=== PATIENT | male | born 1980 | race Caucasian/White ===

== ENCOUNTER 2017-12-23 13:57 | Inpatient (IN) | payer BC ==
[2017-12-23] MEDS ORDERED: LORazepam 2 MG/ML INJ IV PRN (14:18)
[2017-12-23] MEDS ORDERED: THIAMINE 100 MG/ML 2 ML VIAL IM STA (14:18)
[2017-12-23] MEDS ORDERED: SODIUM CHLORIDE 0.9% 1,000 ML IV STA ×2 (14:24)
--- NOTE | 2017-12-23 14:30 | ED ---
General Adult HPI - General Chief complaint: Weakness Stated complaint: weakness, altered Time Seen by Provider: 12/23/17 14:08 Source: patient, family Mode of arrival: ambulatory Limitations: no limitations - History of Present Illness Initial comments: Patient sent to the emergency room from his primary care office for admission to the hospital for alcohol withdrawal, malnutrition. Patient is chronic alcoholic, states she drinks one fifth of whiskey per day. Mother lives in [place] drove up to see him this weekend because patient sounded very weak. Mom found patient in bed, too weak to walk or stand. Mom states patient was crawling on floor. Patient admits to not eating. Mom states 2 days ago she was able to feed him baby food, states he ate a small plate of chicken nuggets earlier today. Patient has gone through severe withdrawal before, admitted to intensive care unit [facility] in October of last year. Patient denies any withdrawal symptoms at this time. Mom notes patient does have mild intermittent confusion over the last year. Patient denies any other drug use. Last drink was whiskey earlier this morning. Patient states his primary care physician Dr. Childress told him they have a bed reserved for him in the hospital already. - Related Data Allergies Allergy/AdvReac Type Severity Reaction Status Date / Time No Known Allergies Allergy Verified 12/23/17 14:07 Review of Systems ROS Statement: Those systems with pertinent positive or pertinent negative responses have been documented in the HPI. Constitutional: Reports: weakness, weight change. Denies: fever, chills, night sweats Eyes: Denies: vision change ENT: Denies: throat pain, congestion Respiratory: Denies: dyspnea Cardiovascular: Denies: chest pain, palpitations Endocrine: Reports: fatigue Gastrointestinal: Reports: vomiting (2 days ago). Denies: abdominal pain, nausea Genitourinary: Denies: urgency, dysuria, frequency Musculoskeletal: Denies: back pain, joint swelling, arthralgia, myalgia Skin: Denies: rash Neurological: Reports: weakness (generalized). Denies: headache Psychiatric: Denies: anxiety, depression, suicidal thoughts Past Medical History Additional Past Medical History / Comment(s): Endocarditis. History of Any Multi-Drug Resistant Organisms: None Reported Past Surgical History: No Surgical Hx Reported Past Psychological History: No Psychological Hx Reported Smoking Status: Current every day smoker Past Alcohol Use History: Daily Past Drug Use History: None Reported General Exam - General Exam Comments Initial Comments: Sitting up in bed alert, in pajama pants and oriented lathe hand. No acute distress. Cachectic appearing Limitations: no limitations General appearance: alert, in no apparent distress Head exam: Present: atraumatic, normocephalic Eye exam: Present: normal appearance, PERRL, EOMI ENT exam: Present: normal oropharynx, mucous membranes moist, normal external ear exam Neck exam: Present: normal inspection. Absent: tenderness, meningismus Respiratory exam: Present: normal lung sounds bilaterally. Absent: respiratory distress, wheezes, rales Cardiovascular Exam: Present: normal rhythm, tachycardia GI/Abdominal exam: Present: soft. Absent: distended, tenderness, guarding, rebound, rigid Extremities exam: Present: normal inspection, normal capillary refill. Absent: pedal edema Neurological exam: Present: alert, oriented X3, CN II-XII intact, other (No tremors, patient appears calm, conversing normally. Alert and oriented 4. GCS 15.) Psychiatric exam: Present: normal affect, normal mood Skin exam: Present: warm, dry, intact, normal color. Absent: rash Course Vital Signs 12/23/17 14:02 Temperature 97.8 F Pulse Rate 120 H Respiratory 20 Rate Blood Pressure 111/66 O2 Sat by Pulse 98 Oximetry Medical Decision Making - Medical Decision Making Spoke with patient's primary care doctor Fior, agrees with admission to telemetry, request consult to neurology. Seizure precautions, CIWA protocol in place, Ativan when necessary. We'll give first dose Ativan now given tachycardia. Timing given We'll admit to cardiac telemetry at this time. Patient mother updated with plan. No signs withdrawn ER other than tachycardia. Disposition Clinical Impression: Withdrawal symptoms, alcohol, Malnutrition Disposition: ADMITTED IP TO THIS HOSP Condition: Good Referrals: Jacob Childress MD [Primary Care Provider] - 1-2 days
[2017-12-23] MEDS ORDERED: LORazepam 2 MG/ML INJ IV STA (14:34)
[2017-12-23 15:01] LABS: Anisocytosis Slight; Basophils % (A) 0 %; Eosinophils # (A) 0.1 k/uL (0-0.7); Eosinophils % (A) 1 %; HCT 33.8 % (39.0-53.0); HGB 11.2 gm/dL (13.0-17.5); Lymphocytes # (A) 1.9 k/uL (1.0-4.8); Lymphocytes % (A) 15 %; MCH 37.6 pg (25.0-35.0); MCHC 33.1 g/dL (31.0-37.0); MCV 113.8 fL (80.0-100.0); Macrocytosis Marked; Mean Platelet Volume 7.8; Monocytes % (A) 8 %; Neutrophils # (A) 8.9 k/uL (1.3-7.7); Neutrophils % (A) 74 %; Platelet Count 350 k/uL (150-450); RBC 2.97 m/uL (4.30-5.90); WBC 12.1 k/uL (3.8-10.6)
[2017-12-23 15:09] LABS: Target Cells Present
[2017-12-23 15:10] LABS: ALT 79 U/L (21-72); AST 214 U/L (17-59); Alcohol <10 mg/dL; Alkaline Phosphatase 223 U/L (38-126); Anion Gap 15 mmol/L; Bilirubin, Delta 0.6 mg/dL (0.0-0.2); Bilirubin,Unconjugated 0.2 mg/dL (0.0-1.1); Blood Urea Nitrogen 4 mg/dL (9-20); Calcium 8.6 mg/dL (8.4-10.2); Carbon Dioxide 32 mmol/L (22-30); Chloride 86 mmol/L (98-107); Glucose 122 mg/dL (74-99); Lipase 218 U/L (23-300); Magnesium 1.7 mg/dL (1.6-2.3); Sodium 133 mmol/L (137-145); Total Bilirubin 0.8 mg/dL (0.2-1.3); Total Protein 5.9 g/dL (6.3-8.2)
[2017-12-23] MEDS ORDERED: POTASSIUM CHLORIDE ER 20 MEQ TAB.ER PO STA (15:14)
[2017-12-23 15:15] LABS: Potassium 2.8 mmol/L (3.5-5.1)
[2017-12-23] MEDS ORDERED: Potassium Replacement Protocol 1 EACH MISC MISCELLANE PRN (16:59)
[2017-12-23] MEDS: THIAMINE 100 MG TAB PO SCH (17:10)
[2017-12-23] MEDS: POTASSIUM CHLORIDE 10 MEQ in WATER FOR INJECTION 1 100ML.BAG IVPB SCH ×3 (17:37→22:10)
[2017-12-23] MEDS: LORazepam 2 MG/ML INJ IV SCH ×2 (17:41→20:08)
[2017-12-23 18:01] LABS: INR 1.1 (<1.2); Partial Thromboplastin Time 23.8 sec (22.0-30.0); Prothrombin Time 10.5 sec (9.0-12.0)
--- NOTE | 2017-12-23 18:39 | P.CNNES ---
History of Present Illness Consult date: 12/23/17 Reason for Consult: Patient admitted for alcohol withdrawal and malnutrition. History of Present Illness: This patient is a 37-year-old right-handed white male who apparently has a long- standing history of chronic alcoholism. Patient has been drinking about a fifth of whiskey every day. He has been showing signs of malnutrition over the past month. Apparently he had contacted his mother recently and she was concerned as he appeared to sound very weak and told her that he was having difficulty standing and ambulating. He has not been eating very much in terms of nutritional intake. Apparently he was only able to eat some baby food at home and some chicken nuggets recently. The patient has no appetite at this time. It was recommended that he should be admitted for treatment of malnutrition and possible alcohol withdrawal syndrome. He was started on a CIWA protocol and was admitted to hospital today. Patient appears to be very weak. He has a history of having been admitted about a year ago for similar episode of alcohol withdrawal. He states he does not drink heavily but apparently does drink a fifth of whiskey on a daily basis. He states he does not binge drink on a regular basis. His primary care physician Dr. Childress recommended that he should be admitted to hospital for further treatment. According to the patient he may have had a CAT scan done but he is not aware of the details. Have recommended a computed tomography scan of the brain to be done for this patient. He has been having episodic confusion which may be related to alcohol related encephalopathy. We have recommended routine EEG for further evaluation. As noted the patient also apparently has been having fluctuations in his blood sugar. We will check laboratory testing as well to include hemoglobin A1c. Patient advised to consider a drug rehabilitation program as an outpatient for alcoholism. He will discuss this later with Dr. Childress. According to the nursing staff the patient has admitted to them that he has had chronic memory loss over the past 1 year. This is likely related to his chronic alcoholism. As noted we have recommended a computed tomography scan of the brain for further evaluation. The patient is now admitted and neurology has been consulted for further evaluation and recommendations. Review of Systems Constitutional: Denies chills, Denies fever Eyes: denies blurred vision, denies pain Ears, nose, mouth and throat: Denies headache, Denies sore throat Cardiovascular: Denies chest pain, Denies shortness of breath Respiratory: Denies cough Gastrointestinal: Denies abdominal pain, Denies diarrhea, Denies nausea, Denies vomiting Musculoskeletal: Denies myalgias Integumentary: Denies pruritus, Denies rash Neurological: Reports confusion, Reports lack of coordination, Reports paresthesias, Denies numbness, Denies weakness Psychiatric: Denies anxiety, Denies depression Endocrine: Denies fatigue, Denies weight change Past Medical History Past Medical History: GERD/Reflux, GI Bleed, Memory Impairment Additional Past Medical History / Comment(s): Endocarditis.murmur chronic alcoholism "past severe withdrawl(seizure) at [facility] in [place], also pt's mom stated he had gi bleed shile there not sure if it was an ulcer or not". has short erm memory problems. numbness/tingling in feet/hands, past shingles when younger History of Any Multi-Drug Resistant Organisms: None Reported Past Surgical History: No Surgical Hx Reported Additional Past Surgical History / Comment(s): egd/colonoscopy Past Anesthesia/Blood Transfusion Reactions: No Reported Reaction Additional Past Anesthesia/Blood Transfusion Reaction / Comment(s): pt lives by himself. [place]. 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 Smoking Status: Current every day smoker - Past Family History Mother Family Medical History: Hypertension, Renal Disease Additional Family Medical History / Comment(s): graves disease Father Family Medical History: Cancer Additional Family Medical History / Comment(s): depression, colon cancer, pituitary problem Medications and Allergies Home Medications Medication Instructions Recorded Confirmed Type No Known Home Medications [No 12/23/17 12/23/17 History Known Home Medications] Allergies Allergy/AdvReac Type Severity Reaction Status Date / Time No Known Allergies Allergy Verified 12/23/17 18:27 Physical Examination - Vital Signs Vital Signs: Vital Signs Temp Pulse Pulse Pulse Resp BP BP 12/23/17 18:08 120 H 12/23/17 16:45 97.8 F 109 H 18 112/72 12/23/17 16:05 98.2 F 117 H 20 121/72 12/23/17 14:02 97.8 F 120 H 20 111/66 Pulse Ox 12/23/17 18:08 12/23/17 16:45 99 12/23/17 16:05 99 12/23/17 14:02 98 Intake and Output 04/03/18 04/03/18 04/03/18 06:59 14:59 22:59 Other: Weight 58.967 kg - Constitutional General appearance: average body habitus, cooperative, thin - EENT EENT: PERRL, mucous membranes moist - Respiratory Respiratory: lungs clear, normal breath sounds - Cardiovascular Cardiovascular: regular rate, normal S1, normal S2 Extremities: no peripheral edema bilaterally - Gastrointestinal Gastrointestinal: normoactive bowel sounds - Integumentary Integumentary: normal - Neurologic Cranial nerve examination: PERRL, EOMI, VFF, V1/V2/V3 grossly intact, face symmetric, tongue midline, intact gag reflex, intact corneal reflex, normal palatal elevation Speech examination: intact Sensorimotor examination: intact Motor examination - right side: 4/5: biceps, triceps, wrist flexion, wrist extension, equipment operator wage hand, hip flexors, knee extensors, dorsiflexion, toe extension (EHL) , plantarflexion Motor examination - left side: 4/5: biceps, triceps, wrist flexion, wrist extension, equipment operator wage hand, hip flexors, knee extensors, dorsiflexion, toe extension (EHL) , plantarflexion Detailed sensory examination: intact Reflex and gait examination: intact Reflexes: 1+: ankle, bicep, knee, tricep - Musculoskeletal Musculoskeletal: no pain - Psychiatric Psychiatric: mood/affect appropriate, depressed, cooperative Results - Laboratory Findings CBC and BMP: 12/23/17 14:37 12/23/17 14:37 Abnormal Lab Findings: Abnormal Labs 12/23/17 12/23/17 14:37 14:37 WBC 12.1 H RBC 2.97 L Hgb 11.2 L Hct 33.8 L MCV 113.8 H MCH 37.6 H RDW 16.0 H Neutrophils # 8.9 H Sodium 133 L Potassium 2.8 L* Chloride 86 L Carbon Dioxide 32 H BUN 4 L Creatinine 0.54 L Glucose 122 H Delta Bilirubin 0.6 H AST 214 H ALT 79 H Alkaline Phosphatase 223 H Total Protein 5.9 L Albumin 3.0 L Assessment and Plan (1) Encephalopathy Current Visit: Yes Status: Acute Code(s): G93.40 - ENCEPHALOPATHY, UNSPECIFIED SNOMED Code(s): 04436710 (2) Malnutrition Current Visit: Yes Status: Acute Code(s): E46 - UNSPECIFIED PROTEIN-CALORIE MALNUTRITION SNOMED Code(s): 11948304 (3) Withdrawal symptoms, alcohol Current Visit: Yes Status: Acute Code(s): F10.239 - ALCOHOL DEPENDENCE WITH WITHDRAWAL, UNSPECIFIED SNOMED Code(s): 494140281 Plan: This patient is a 37-year-old male who was admitted to hospital for symptoms of worsening malnutrition and chronic alcohol is impaired patient has been drinking a fifth of whiskey on a daily basis and has been losing weight and not eating properly at home. His symptoms have worsened over the last 2 days and for this reason he was admitted to hospital for alcohol withdrawal syndrome as well as malnutrition. We have recommended the patient undergo a computed tomography scan of the brain for further evaluation. He has been started on a [facility] protocol for alcohol withdrawal. We would recommend a nutritional and dietary consult for the patient as well. We will obtain routine EEG for further assessment of his chronic confusion. Patient may benefit from an outpatient drug rehabilitation program such as [facility] for alcohol is some as an outpatient. The patient may also benefit from physical therapy and occupational therapy consultation due to his generalized weakness. We will continue to follow his progress closely during this admission. His overall prognosis at this time remains guarded.
[2017-12-23] MEDS: LORazepam 2 MG/ML INJ IV PRN (19:26)
--- NOTE | 2017-12-23 19:45 | CT ---
EXAMINATION TYPE: CT brain wo con DATE OF EXAM: 12/23/2017 COMPARISON: NONE HISTORY: Chronic alcoholism and confusion. CT DLP: 1225 mGycm. Automated Exposure Control for Dose Reduction was Utilized. TECHNIQUE: CT scan of the head is performed without contrast. FINDINGS: There is no acute intracranial hemorrhage, mass effect, or midline shift identified. No suspicious extra-axial fluid collection. The ventricles and sulci are within normal limits in size. The globes are intact and the visualized sinuses are clear. IMPRESSION: No acute intracranial hemorrhage, mass effect, or midline shift is seen. MRI could be pe rformed if symptoms persist.
[2017-12-23 22:19] LABS: Appearance,Urine Clear (Clear); Bilirubin,Urine Negative (Negative); Blood,Urine Negative (Negative); Color,Urine Yellow; Glucose,Urine (UA) Negative (Negative); Ketones,Urine Negative (Negative); Leukocyte Esterase,Urine Negative (Negative); Nitrite,Urine Negative (Negative); Protein,Urine Trace (Negative); Specific Gravity,Urine 1.015 (1.001-1.035)
[2017-12-23 22:32] LABS: Amphetamine Screen,Urine Not Detected (NotDetected); Barbiturate Screen,Urine Not Detected (NotDetected); Benzodiazepines Screen,Urine Detected (NotDetected); Cocaine Screen,Urine Not Detected (NotDetected); Methadone Screen, Urine Not Detected (NotDetected); Opiate Screen,Urine Not Detected (NotDetected); Oxycodone Screen, Urine Not Detected (NotDetected); Phencyclidine Screen,Urine Not Detected (NotDetected); Tricyclic Antidepressant,Urine Not Detected (NotDetected); Urn Cannabinoid Scrn Not Detected (NotDetected)
[2017-12-24] MEDS: LORazepam 2 MG/ML INJ IV SCH ×7 (00:29→23:56)
[2017-12-24 08:20] LABS: Basophils % (A) 0 %; Eosinophils # (A) 0.1 k/uL (0-0.7); Eosinophils % (A) 1 %; HCT 32.6 % (39.0-53.0); HGB 10.7 gm/dL (13.0-17.5); Lymphocytes # (A) 1.5 k/uL (1.0-4.8); Lymphocytes % (A) 24 %; MCH 38.2 pg (25.0-35.0); MCHC 32.8 g/dL (31.0-37.0); MCV 116.3 fL (80.0-100.0); Macrocytosis Marked; Mean Platelet Volume 7.6; Monocytes # (A) 0.5 k/uL (0-1.0); Monocytes % (A) 8 %; Neutrophils # (A) 4.1 k/uL (1.3-7.7); Neutrophils % (A) 65 %; Platelet Count 326 k/uL (150-450); RDW 15.9 % (11.5-15.5); WBC 6.4 k/uL (3.8-10.6)
[2017-12-24 08:32] LABS: Anion Gap 6 mmol/L; Blood Urea Nitrogen 3 mg/dL (9-20); Calcium 8.1 mg/dL (8.4-10.2); Carbon Dioxide 30 mmol/L (22-30); Chloride 97 mmol/L (98-107); Glucose 78 mg/dL (74-99); Potassium 4.1 mmol/L (3.5-5.1); Sodium 133 mmol/L (137-145)
--- NOTE | 2017-12-24 09:25 | XR ---
EXAMINATION TYPE: XR chest 1V portable DATE OF EXAM: 12/24/2017 COMPARISON: NONE HISTORY: Cough and history of smoking TECHNIQUE: Single frontal view of the chest is obtained. FINDINGS: There is no focal air space opacity, pleural effusion, or pneumothorax seen. The cardiac silhouette size is within normal limits. The osseous structures are intact. Limited inspiration. No overt failure. IMPRESSION: No acute process.
--- NOTE | 2017-12-24 09:55 | P.HPIM ---
History of Present Illness H&P Date: 12/24/17 Chief Complaint: Weakness, malnutrition, ETOH 37-year-old male who was evaluated by Dr. Childress on an outpatient basis for weakness, malnutrition, and alcoholism on 12/23/2017. Due to the severity of this, Dr. Childress recommended the patient come to the emergency room for further evaluation. The patient has a history of alcoholism and drinks a fifth per day. The patient's mother lives in [place] but apparently they speak weekly via phone. During their last phone conversation, the mother reports that she could tell he was not doing well and she drove to [place]. She found the patient to be extremely weak and unable to stand or ambulate. Additionally, he was very confused. The mother does report chronic short term memory loss. Last reported drink was on Friday12/22/2017. The patient has a history of endocarditis which he states is secondary to dental work in 1996. Patient denies drug usage. Patient does report smoking 1 pack of cigarettes daily. 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 Patient states he used to wear a lumbar support brace but no longer does. 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 The patient has been living off his savings from his business. EKG: Sinus tachycardia. No ST elevation or depression noted. Laboratory data: WBC 12.1. Hemoglobin 11.2. Platelet count 350. PT 10.5. INR 1.1. PTT 23.8. Sodium 133. Potassium 2.8. BUN 4. Creatinine 0.54. Glucose 122. Magnesium 1.7. AST 214. ALT 79. Alkaline phosphatase 223. Total bilirubin 0.8. Total protein 5.9. Albumin 3.0. Lipase 218. Serum alcohol less than 10 Urinalysis is positive for trace proteinuria but otherwise negative. Toxicology is positive for benzodiazepine but otherwise negative. The patient did receive ativan IV. The patient was admitted to the hospital under the care of Dr. Childress. Consultations were placed to Neurology. Review of Systems GENERAL: Patient denies fever. Denies chills. EYES: Denies blurred vision. Denies vision changes. Denies eye pain. EARS, NOSE, MOUTH, & THROAT: Denies headache. Denies sore throat. Denies ear pain. RESPIRATORY: Denies cough. Denies shortness of breath. Denies sputum production. Denies hemoptysis. CARDIOVASCULAR: Denies chest pain or pressure. Denies palpitations. Denies arrhythmias. GASTROINTESTINAL: Positive for decreased appetite. Denies abdominal pain. Denies diarrhea. Denies constipation. Denies nausea. Denies vomiting. Denies heartburn. Denies blood in the stool. GENITOURINARY: Denies urinary frequency. Denies burning. Denies dysuria. Denies cloudy urine. Denies blood in the urine. MUSCULOSKELETAL: Positive for chronic lower back pain. Positive for generalized weakness and inability to ambulate. Denies joint swelling. INTEGUMENTARY: Denies pruitis. Denies rash. PSYCHIATRIC: Denies suicidal or homicial ideations. ENDOCRINE: Positive for significant weight loss. Denies polydipsia. Denies polyuria. HEMATOLOGIC: Denies bleeding disorders. Past Medical History Past Medical History: GERD/Reflux, GI Bleed, Memory Impairment Additional Past Medical History / Comment(s): Endocarditis.murmur chronic alcoholism "past severe withdrawl(seizure) at [facility] in [place], also pt's mom stated he had gi bleed shile there not sure if it was an ulcer or not". has short erm memory problems. numbness/tingling in feet/hands, past shingles when younger History of Any Multi-Drug Resistant Organisms: None Reported Past Surgical History: No Surgical Hx Reported Additional Past Surgical History / Comment(s): egd/colonoscopy Past Anesthesia/Blood Transfusion Reactions: No Reported Reaction Additional Past Anesthesia/Blood Transfusion Reaction / Comment(s): pt lives by himself. lives [place] house [place]. 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 in past worked in [employer]. Smoking Status: Current every day smoker - Past Family History Mother Family Medical History: Hypertension, Renal Disease Additional Family Medical History / Comment(s): graves disease Father Family Medical History: Cancer Additional Family Medical History / Comment(s): depression, colon cancer, pituitary problem Medications and Allergies Home Medications Medication Instructions Recorded Confirmed Type No Known Home Medications [No 12/23/17 12/23/17 History Known Home Medications] Allergies Allergy/AdvReac Type Severity Reaction Status Date / Time No Known Allergies Allergy Verified 12/23/17 18:27 Physical Exam Vitals: Vital Signs Temp Pulse Pulse Pulse Resp BP BP 12/24/17 06:02 97.8 F 111 H 17 107/69 12/23/17 22:51 97.9 F 107 H 17 98/60 12/23/17 20:00 97.6 F 102 H 16 99/61 12/23/17 18:08 120 H 12/23/17 16:45 97.8 F 109 H 18 112/72 12/23/17 16:05 98.2 F 117 H 20 121/72 12/23/17 14:02 97.8 F 120 H 20 111/66 Pulse Ox 12/24/17 06:02 100 12/23/17 22:51 98 12/23/17 20:00 98 12/23/17 18:08 12/23/17 16:45 99 12/23/17 16:05 99 12/23/17 14:02 98 Intake and Output 12/23/17 12/24/17 12/24/17 22:59 06:59 14:59 Other: # Voids 1 GENERAL: This is a 37-year-old male in no apparent distress at the time of examination. Emaciated. Appears very thin and frail. HEENT: Head is atraumatic, normocephalic. Pupils are equal, round, and reactive to light. Face very thin with sunken eyes. Conjunctivae are clear. Mucus membranes of the mouth are moist. Neck is supple. RESPIRATORY: Clear to ausculation. No wheezes, rales, or rhonchi. No use of accessory muscles. Patient maintaining oxygen saturation greater than 92%. No chest wall tenderness is noted on palpation or with deep breathing. CARDIOVASCULAR: Tachycardic. Regular rate and rhythm. S1 and S2 noted. No systolic or diastolic murmur auscultated. No JVD noted. No S3 or S4 noted. GASTROINTESTINAL: Mildly distended with some ascites to lower abdomen. Abdomen soft and round. Bowel sounds auscultated x 4 quadrants. No pain or tenderness noted upon palpation. INTEGUMENTARY: No cyanosis. No jaundice. No rashes noted. No cellulitis noted. EXTREMITIES: Muscle wasting present. 2+ peripheral pulses. No evidence of peripheral edema. No calf tenderness noted. NEUROLOGIC: Cranial nerves II-XII intact. Speech normal. Short term memory loss present. Decreased muscle strength and tone to all extremities. PSYCHIATRIC: Awake, alert, and oriented X 1-2. Appropriate affect. Pleasant and cooperative during examination. Results CBC & Chem 7: 12/24/17 07:32 12/24/17 07:32 Labs: Abnormal Lab Results - Last 24 Hours (Table) 12/23/17 12/23/17 12/23/17 Range/Units 14:37 14:37 22:07 WBC 12.1 H (3.8-10.6) k/uL RBC 2.97 L (4.30-5.90) m/uL Hgb 11.2 L (13.0-17.5) gm/dL Hct 33.8 L (39.0-53.0) % MCV 113.8 H (80.0-100.0) fL MCH 37.6 H (25.0-35.0) pg RDW 16.0 H (11.5-15.5) % Neutrophils # 8.9 H (1.3-7.7) k/uL Sodium 133 L (137-145) mmol/L Potassium 2.8 L* (3.5-5.1) mmol/L Chloride 86 L (98-107) mmol/L Carbon Dioxide 32 H (22-30) mmol/L BUN 4 L (9-20) mg/dL Creatinine 0.54 L (0.66-1.25) mg/dL Glucose 122 H (74-99) mg/dL Calcium (8.4-10.2) mg/dL Delta Bilirubin 0.6 H (0.0-0.2) mg/dL AST 214 H (17-59) U/L ALT 79 H (21-72) U/L Alkaline Phosphatase 223 H (38-126) U/L Total Protein 5.9 L (6.3-8.2) g/dL Albumin 3.0 L (3.5-5.0) g/dL Urine Protein Trace H (Negative) U Benzodiazepines Scrn Detected H (NotDetected) 12/24/17 12/24/17 Range/Units 07:32 07:32 WBC (3.8-10.6) k/uL RBC 2.80 L (4.30-5.90) m/uL Hgb 10.7 L (13.0-17.5) gm/dL Hct 32.6 L (39.0-53.0) % MCV 116.3 H (80.0-100.0) fL MCH 38.2 H (25.0-35.0) pg RDW 15.9 H (11.5-15.5) % Neutrophils # (1.3-7.7) k/uL Sodium 133 L (137-145) mmol/L Potassium (3.5-5.1) mmol/L Chloride 97 L (98-107) mmol/L Carbon Dioxide (22-30) mmol/L BUN 3 L (9-20) mg/dL Creatinine 0.38 L (0.66-1.25) mg/dL Glucose (74-99) mg/dL Calcium 8.1 L (8.4-10.2) mg/dL Delta Bilirubin (0.0-0.2) mg/dL AST (17-59) U/L ALT (21-72) U/L Alkaline Phosphatase (38-126) U/L Total Protein (6.3-8.2) g/dL Albumin (3.5-5.0) g/dL Urine Protein (Negative) U Benzodiazepines Scrn (NotDetected) Assessment and Plan Plan: ASSESSMENT: Alcoholism, pt drinks fifth of whiskey daily Severe protein calorie malnutrition, BMI 15.4 Alcoholic encephalopathy Short term memory loss with possible Wernicke's encephalopathy Severe debility and inability to ambulate History of endocarditis secondary to dental procedure per patient Nicotine dependence, patient is a current cigarette smoker, 1 PPD Hypokalemia PLAN: Neurology on consult. Appreciate recommendations and input Await results of EEG CIWA protocol. Continue Ativan 1mg Q4 hours scheduled as well. Consult dietary Strict I/O Continue folic acid and thiamine. Add daily multivitamin Obtain chest xray Obtain echo Continue telemetry monitoring Encourage smoking cessation. Will order Nicotine patch Encourage abstinence from ETOH Monitor labs GI prophylaxis: Protonix 40 mg PO Daily DVT prophylaxis: SCDs to bilateral lower extremities Monitor vital signs and address as appropriate Consult social work Patient would benefit from rehab at the time of discharge Further recommendations pending patient's course Nurse practitioner note has been reviewed by physician. Signing provider agrees with the documented findings, assessment, and plan of care.
[2017-12-24] MEDS: NICOTINE 14MG/24HR PATCH TRANSDERM SCH (10:51)
[2017-12-24] MEDS: SODIUM CHLORIDE 0.9% 1,000 ML IV SCH ×2 (10:51→15:45)
[2017-12-24 10:53] LABS: Poikilocytosis (M) Present; Toxic Granulation Present
[2017-12-24] MEDS: MULTIVITAMINS, THERA 1 EACH TAB PO SCH (12:05)
[2017-12-24] MEDS: THIAMINE 100 MG TAB PO SCH ×2 (12:06→16:38)
--- NOTE | 2017-12-24 15:59 | P.CN ---
Psychiatric Consult - . Consult date: 12/24/17 Consult:: 12/24/17 15:32 Identification: Patient is a 37-year-old male who was seen in his primary care doctor's office where he presented with complaints of weakness and malnourishment and was referred to the emergency room for admission. Patient also has a history of alcohol use. Reason for Consult: Alcoholism History of Present Illness: Patient's chart was reviewed, he was seen and interviewed in his room no family members were present. Patient is a fair to poor historian. Patient states that he went to see his primary care physician because he was not doing well but could not elaborate further. Patient states that he lives alone and has been using up to a fifth a day of alcohol and at times beer. He states he has been drinking this much for the last 6 months. He reports 6 months of sobriety prior to that. States that his longest periods of sobriety of been for 6-8 months at a time. Patient reports beginning to use alcohol at the age of 14 and beginning drinking regularly while he was in high school. He states at that time it was a sixpack several times a week. He reports that he then began using marijuana when he started college and then returned to alcohol. Patient reports a history of using different drugs in the past cocaine and ecstasy and mushrooms. Patient states that he was at [facility] about a year ago to be detoxed states that he was there for 1 day and went because he was stumbling around and wasn't thinking clearly. He reports that they recommended inpatient rehab but he refused. Patient states that he has never gone to any rehab programs and does not attend AA meetings. He states that he did attend Al-Anon in the past. Patient reports that he has lost about 15 pounds over the last several months, states that he begins drinking in the morning and reports that he eats a healthy diet however when questioned further he could not name what he had recently been eating at home. Patient reports that he has difficulty learning new information and at times getting past information clear. 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 Patient reports a history of seizures with withdrawing from alcohol as well as visual hallucination and confusion. Patient reports no history of suicide attempts or suicidal ideation. Patient denies that he has ever felt depressed, no manic symptoms. Past Psychiatric History: Patient denies any inpatient psychiatric treatment or outpatient counseling. Patient denies any inpatient or outpatient rehab programs and reports that he is not ever attended AA meetings. Past Medical/Surgical History: Patient has a history of endocarditis, GERD and history of a GI bleed and no surgical history Family History: Patient states his mother used alcohol and that alcohol use runs on both sides of his family. He is unaware of any psychiatric history. Patient denies anyone in the family is completed suicide Social History: Patient states he was born and raised in [place] and moved to [place] when he was in high school. Parents when he was 5 years of age and initially he was living with his father and then went to live with his mother a year later. He states he has one sister. He completed high school and went to college for one year but was unable to tell me why he quit. 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 Patient states that he lives alone and is never been and has no children. He denies any abuse history. Substance Use History: Patient states he began using alcohol at the age of 14 and began drinking on a regular basis while in high school. He is currently drinking up to a fifth a day and sometimes will have several beers with that. He states that he used marijuana in the past in college and last used 3 months ago. He reports trying different drugs in the past, cocaine, ecstasy and others. Legal History: Patient denies any legal history. Mental status: Appearance/Attitude: Patient is lying in a hospital bed, makes intermittent eye contact and is cooperative Behavior: Patient does not exhibit any psychomotor retardation but appears to be somewhat slowed I suspect from his medications and no agitation. Speech/Language: Patient responds to questions in a soft voice and is coherent Thought Process: Patient has difficulty responding to most questions, needing to think for long periods of time and states that he is having difficulty organizing his thoughts and recalling information again may be secondary to his current medications. Thought Content: Patient denied any current auditory or visual hallucination and no delusions or paranoid ideation were elicited. Patient states that he has been trying to eat. Patient states that he has lost a fair amount of weight recently but then stated that he is been eating a healthy diet. Suicidal/Homicidal Ideation: Patient denied any current suicidal or homicidal ideation Sensorium/Cognition: Patient is alert and oriented to person and situation however further cognitive testing was not performed at this time as the patient is on Ativan for alcohol withdrawal Mood/Affect: Patient's mood is cooperative and his affect is blunted Insight/Judgment: Patient's insight and judgment were not assessed at this time Assessment: Patient presented to the hospital with evidence of malnutrition, weakness and has been using up to a pint a day of alcohol for at least the last 6 months, he claims he was sober for 6 months prior to that but has been using alcohol on a regular basis since he was in high school. Patient is currently unable to give an accurate history, he does report difficulties with his memory however cognitive assessment at this time was not done due to the patient being on Ativan on a standing schedule for alcohol withdrawal. Patient states he has had difficulty with his memory. Patient has no history of inpatient psychiatric treatment and he denies that he has ever gone for alcohol rehab treatment. Patient has a history of seizures, visual hallucinations and confusion when withdrawing from alcohol in the past. Diagnosis: Alcohol use disorder, severe, alcohol withdrawal Plan: Patient has no history of prior inpatient psychiatric treatment and does not give a history of manic symptoms, depressive symptoms or anxiety symptoms. Patient has not been caring for his ADLs, he has lost he states 15 pounds in the last several months and has been using up to a fifth of alcohol a day. Patient reports that he has never received any alcohol rehab treatment, has never attended AA meetings. He reports difficulty with his memory but at this time the patient is receiving Ativan 1 mg every 4 hours scheduled basis for alcohol withdrawal and so cognitive assessment at this time was not performed. Reading the social work assessment the patient has agreed to go to subacute rehab on discharge and I would strongly recommend that the patient be referred for inpatient alcohol rehab when he is physically able. Patient's cognitive status can be evaluated once the patient has been off benzodiazepines. Will follow patient while he is in the hospital. Patient does not require inpatient psychiatric admission.
[2017-12-24] MEDS: LORazepam 2 MG/ML INJ IV PRN ×2 (16:37→17:41)
[2017-12-24] MEDS: FOLIC ACID 1 MG TAB PO SCH (16:38)
[2017-12-24 18:40] LABS: Glucose,Whole Blood 212 mg/dL (75-99)
--- NOTE | 2017-12-24 20:12 | P.PN ---
Subjective Progress Note Date: 12/24/17 This patient is a 37-year-old right-handed white male who was seen in neurology consultation yesterday for evaluation of alcohol withdrawal syndrome and confusion. Patient had been drinking a fifth of alcohol daily for the past 6 months. He was not eating properly at home and has had significant malnutrition. He was advised admission to the hospital yesterday for further evaluation. She was sent for a computed tomography scan of the brain yesterday which revealed no acute intracranial abnormality. No evidence of hemorrhage, mass effect, midline shift. Patient was started on a CIWA protocol yesterday. Apparently his condition worsen today as CIWA scale indicated worsening symptoms of alcohol withdrawal and impending delirium tremens. He was transferred to the intensive care unit this evening for further close monitoring. Apparently on the medical floor his CIWA scale was 18. After transfer to the intensive care unit his repeat CIWA scale is 10.0. Patient was seen in consultation with psychiatry today for alcohol use disorder and severe alcohol withdrawal. They're recommending alcohol rehab treatment for the patient as well as AA program. They are recommending inpatient alcohol rehab when he is physically able. Patient is resting comfortably. We did review the results of his CAT scan of the brain today with him. There was no evidence of any acute stroke or hemorrhage. He is scheduled to have an EEG done for further assessment of his memory loss. We will await the testing to be done tomorrow. His case was discussed at length today with the patient as well as his mother was at bedside in the ICU. All of their questions were answered. They're aware of his current neurological status and findings. His overall prognosis at this time remains guarded. Objective - Vital Signs Vital signs: Vital Signs Temp 98.0 F 12/24/17 18:43 Pulse 126 H 12/24/17 18:43 Resp 18 12/24/17 18:43 BP 102/65 12/24/17 18:43 Pulse Ox 98 12/24/17 18:43 Intake & Output 12/24/17 12/24/17 12/25/17 06:59 18:59 06:59 Intake Total 1000 Output Total 800 Balance 200 Weight 58.967 kg Intake: Intake, IV Titration 1000 Amount Sodium Chloride 0.9% 1, 1000 000 ml @ 125 mls/hr IV . Q8H [facility] Rx#:[id number] Output: Urine 800 Other: # Voids 1 - Exam Physical examination: PHYSICAL EXAMINATION: Patient is resting comfortably in bed. VITAL SIGNS: Blood pressure is [102/65]. Heart rate is [120]. Respiration is [18 ]. Temperature is [98.0]. HEENT: Head is atraumatic, neck is supple, there were no carotid bruits. CHEST: Lungs are clear to auscultation and percussion. CARDIAC: S1, S2 normal rate and rhythm. There is no murmur. ABDOMEN: Soft and nontender. Bowel sounds are present. EXTREMITIES: There is no pedal edema. Peripheral pulses are present. Neurological examination: Patient has a nonfocal neurological examination today. - Labs CBC & Chem 7: 12/24/17 07:32 12/24/17 07:32 Labs: Abnormal Lab Results - Last 24 Hours (Table) 12/23/17 12/24/17 12/24/17 Range/Units 22:07 07:32 07:32 RBC 2.80 L (4.30-5.90) m/uL Hgb 10.7 L (13.0-17.5) gm/dL Hct 32.6 L (39.0-53.0) % MCV 116.3 H (80.0-100.0) fL MCH 38.2 H (25.0-35.0) pg RDW 15.9 H (11.5-15.5) % Sodium 133 L (137-145) mmol/L Chloride 97 L (98-107) mmol/L BUN 3 L (9-20) mg/dL Creatinine 0.38 L (0.66-1.25) mg/dL POC Glucose (mg/dL) (75-99) mg/dL Calcium 8.1 L (8.4-10.2) mg/dL Urine Protein Trace H (Negative) U Benzodiazepines Scrn Detected H (NotDetected) 12/24/17 Range/Units 18:37 RBC (4.30-5.90) m/uL Hgb (13.0-17.5) gm/dL Hct (39.0-53.0) % MCV (80.0-100.0) fL MCH (25.0-35.0) pg RDW (11.5-15.5) % Sodium (137-145) mmol/L Chloride (98-107) mmol/L BUN (9-20) mg/dL Creatinine (0.66-1.25) mg/dL POC Glucose (mg/dL) 212 H (75-99) mg/dL Calcium (8.4-10.2) mg/dL Urine Protein (Negative) U Benzodiazepines Scrn (NotDetected) Assessment and Plan (1) Encephalopathy Current Visit: Yes Status: Acute Code(s): G93.40 - ENCEPHALOPATHY, UNSPECIFIED SNOMED Code(s): 65353157 (2) Malnutrition Current Visit: Yes Status: Acute Code(s): E46 - UNSPECIFIED PROTEIN-CALORIE MALNUTRITION SNOMED Code(s): 54757634 (3) Withdrawal symptoms, alcohol Current Visit: Yes Status: Acute Code(s): F10.239 - ALCOHOL DEPENDENCE WITH WITHDRAWAL, UNSPECIFIED SNOMED Code(s): 416178691 Plan: This patient is a 37-year-old male who was transferred today to the intensive care unit for close monitoring of worsening signs of alcohol withdrawal syndrome. He had worsening of his CIWA scale today and has been maintained on Ativan protocol for this. Patient underwent computed tomography scan of the brain yesterday which was negative for any acute findings. Patient is scheduled to undergo routine EEG hopefully to be done tomorrow. Case was discussed at length today with the patient as well as his mother who is at bedside in the ICU. All of their questions were answered. He was seen by psychiatry today and they're recommendations have been noted as above. We will continue close neurological follow-up of this patient in the ICU during this admission. His overall prognosis at this time remains guarded.
--- NOTE | 2017-12-24 23:52 | XR ---
EXAMINATION TYPE: XR abdomen 1V DATE OF EXAM: 12/24/2017 COMPARISON: NONE HISTORY: Abdominal distention TECHNIQUE: 2 views FINDINGS: There is no sign of intestinal obstruction or pneumoperitoneum. Fecal pattern is fairly nor mal. There is no sign of a mass. There are no pathologic calcifications over the kidneys. There is sl ight increased density over the abdomen that raises the possibility of ascites. IMPRESSION: Possible ascites. No free air.
[2017-12-25] MEDS: LORazepam 2 MG/ML INJ IV PRN ×2 (01:17→02:23)
[2017-12-25] MEDS: SODIUM CHLORIDE 0.9% 1,000 ML IV SCH ×5 (01:18→18:50)
[2017-12-25] MEDS: LORazepam 2 MG/ML INJ IV SCH ×5 (04:00→19:38)
[2017-12-25 05:49] LABS: Anion Gap 7 mmol/L; Blood Urea Nitrogen 8 mg/dL (9-20); Calcium 8.3 mg/dL (8.4-10.2); Carbon Dioxide 31 mmol/L (22-30); Chloride 100 mmol/L (98-107); Glucose 103 mg/dL (74-99); Potassium 3.9 mmol/L (3.5-5.1); Sodium 138 mmol/L (137-145)
[2017-12-25] MEDS ORDERED: SODIUM CHLORIDE 0.9% 500 ML IV ONE (07:43)
[2017-12-25] MEDS: POTASSIUM CHLORIDE 10 MEQ in WATER FOR INJECTION 1 100ML.BAG IVPB SCH ×2 (08:06→08:08)
[2017-12-25] MEDS: NICOTINE 14MG/24HR PATCH TRANSDERM SCH (08:36)
[2017-12-25] MEDS: PANTOPRAZOLE 40 MG TABLET PO SCH (08:36)
--- NOTE | 2017-12-25 08:47 | P.PN ---
Subjective Progress Note Date: 12/25/17 37-year-old male who was evaluated by Dr. Childress on an outpatient basis for weakness, malnutrition, and alcoholism on 12/23/2017. Due to the severity of this, Dr. Childress recommended the patient come to the emergency room for further evaluation. The patient has a history of alcoholism and drinks a fifth per day. The patient's mother lives in [place] but apparently they speak weekly via phone. During their last phone conversation, the mother reports that she could tell he was not doing well and she drove to [place]. She found the patient to be extremely weak and unable to stand or ambulate. Additionally, he was very confused. The mother does report chronic short term memory loss. Last reported drink was on Friday12/22/2017. The patient has a history of endocarditis which he states is secondary to dental work in 1996. Patient denies drug usage. Patient does report smoking 1 pack of cigarettes daily. 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 Patient states he used to wear a lumbar support brace but no longer does. 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 The patient has been living off his savings from his business. EKG: Sinus tachycardia. No ST elevation or depression noted. Laboratory data: WBC 12.1. Hemoglobin 11.2. Platelet count 350. PT 10.5. INR 1.1. PTT 23.8. Sodium 133. Potassium 2.8. BUN 4. Creatinine 0.54. Glucose 122. Magnesium 1.7. AST 214. ALT 79. Alkaline phosphatase 223. Total bilirubin 0.8. Total protein 5.9. Albumin 3.0. Lipase 218. Serum alcohol less than 10 Urinalysis is positive for trace proteinuria but otherwise negative. Toxicology is positive for benzodiazepine but otherwise negative. The patient did receive ativan IV. The patient was admitted to the hospital under the care of Dr. Childress. 12/25/2017 Patient seen and evaluated on rounds with Dr. Childress. Patient was transferred to ICU yesterday for closer monitoring secondary to increased CIWA scores. Patient is lethargic but arousable to verbal stimuli. Patient remains on CIWA protocol and also Ativan 1mg q 4 hours scheduled. Nursing reports that patient was cooperative most of the night. Patient has only voided 150cc during the night and was via straight cath. Bladder scan revealed 200-300cc but inaccurate due to patient ascites. Patient was tachycardic yesterday with a rate in the 130s. Rate was improved to 90-110s. Possibility of TPN was discussed yesterday with dietary. Decision was made to give patient 6 small meals daily at this time. Patients mother is at the bedside. Updated on patient condition and plan of care. Objective - Vital Signs Vital signs: Vital Signs Temp 97.8 F 12/25/17 07:30 Pulse 102 H 12/25/17 08:00 Resp 18 12/25/17 08:00 BP 100/69 12/25/17 08:00 Pulse Ox 98 12/25/17 08:00 Intake & Output 12/24/17 12/25/17 12/25/17 18:59 06:59 18:59 Intake Total 1000 2200 650 Output Total 800 170 0 Balance 200 2030 650 Weight 58.967 kg 64.5 kg 64.5 kg Intake: IV 1650 150 Sodium Chloride 0.9% 1, 1650 150 000 ml @ 150 mls/hr IV . [facility] Rx#:[id number] Intake, IV Titration 1000 450 500 Amount Sodium Chloride 0.9% 1, 1000 000 ml @ 125 mls/hr IV . Q8H [facility] Rx#:[id number] Sodium Chloride 0.9% 1, 450 000 ml @ 150 mls/hr IV . Q6H40M [facility] Rx#:[id number] Sodium Chloride 0.9% 500 500 ml @ 999 mls/hr IV .Q31M [facility] Rx#:[id number] Oral 100 Output: Urine 800 170 0 Other: Voiding Method Urinal Urinal - Exam GENERAL: This is a 37-year-old male in no apparent distress at the time of examination. Emaciated. Appears very thin and frail. HEENT: Head is atraumatic, normocephalic. Pupils are equal, round, and reactive to light. Face very thin with sunken eyes. Conjunctivae are clear. Mucus membranes of the mouth are moist. Neck is supple. RESPIRATORY: Clear to ausculation. No wheezes, rales, or rhonchi. No use of accessory muscles. Patient maintaining oxygen saturation greater than 92%. No chest wall tenderness is noted on palpation or with deep breathing. CARDIOVASCULAR: Slightly tachycardic rate 90-110s. Telemetry reveals SR-ST. Regular rate and rhythm. S1 and S2 noted. No systolic or diastolic murmur auscultated. No JVD noted. No S3 or S4 noted. GASTROINTESTINAL: Mildly distended with some ascites to lower abdomen. Abdomen soft and round. Bowel sounds auscultated x 4 quadrants. No pain or tenderness noted upon palpation. INTEGUMENTARY: No cyanosis. No jaundice. No rashes noted. No cellulitis noted. EXTREMITIES: Muscle wasting present. 2+ peripheral pulses. No evidence of peripheral edema. No calf tenderness noted. NEUROLOGIC: Cranial nerves II-XII intact. Speech normal. Short term memory loss present. Decreased muscle strength and tone to all extremities. PSYCHIATRIC: Awake, alert, and oriented X 1. Cooperative during examination. - Labs CBC & Chem 7: 12/24/17 07:32 12/25/17 05:03 Labs: Abnormal Lab Results - Last 24 Hours (Table) 12/24/17 12/24/17 12/24/17 Range/Units 07:32 07:32 18:37 RBC 2.80 L (4.30-5.90) m/uL Hgb 10.7 L (13.0-17.5) gm/dL Hct 32.6 L (39.0-53.0) % MCV 116.3 H (80.0-100.0) fL MCH 38.2 H (25.0-35.0) pg RDW 15.9 H (11.5-15.5) % Sodium 133 L (137-145) mmol/L Chloride 97 L (98-107) mmol/L Carbon Dioxide (22-30) mmol/L BUN 3 L (9-20) mg/dL Creatinine 0.38 L (0.66-1.25) mg/dL Glucose (74-99) mg/dL POC Glucose (mg/dL) 212 H (75-99) mg/dL Calcium 8.1 L (8.4-10.2) mg/dL 12/25/17 Range/Units 05:03 RBC (4.30-5.90) m/uL Hgb (13.0-17.5) gm/dL Hct (39.0-53.0) % MCV (80.0-100.0) fL MCH (25.0-35.0) pg RDW (11.5-15.5) % Sodium (137-145) mmol/L Chloride (98-107) mmol/L Carbon Dioxide 31 H (22-30) mmol/L BUN 8 L (9-20) mg/dL Creatinine 0.38 L (0.66-1.25) mg/dL Glucose 103 H (74-99) mg/dL POC Glucose (mg/dL) (75-99) mg/dL Calcium 8.3 L (8.4-10.2) mg/dL Assessment and Plan Plan: ASSESSMENT: Alcoholism, pt drinks fifth of whiskey daily Alcohol withdrawal Severe protein calorie malnutrition, BMI 15.4 Alcoholic encephalopathy Short term memory loss with possible Wernicke's encephalopathy Severe debility and inability to ambulate History of endocarditis secondary to dental procedure per patient Nicotine dependence, patient is a current cigarette smoker, 1 PPD Hypokalemia, improved with supplementation PLAN: Neurology on consult. Appreciate recommendations and input [facility] protocol. Continue Ativan 1mg Q4 hours scheduled as well. Continue folic acid, thiamine, and daily multivitamin Await results of echo Obtain US abdomen to evaluate ascites Increase IV fluids to 200cc/hr + 500cc bolus now Monitor urine output. If patient does not void within 6 hours of last straight cath, contact PHOTOGRAPH ENLARGER or Dr. Childress Hepatitis panel and HIV testing Repeat PT, PTT, INR in AM Encourage smoking cessation. Continue Nicotine patch Encourage abstinence from ETOH Monitor labs GI prophylaxis: Protonix 40 mg PO Daily DVT prophylaxis: SCDs to bilateral lower extremities Monitor vital signs and address as appropriate Consult social work Patient would benefit from rehab at the time of discharge Further recommendations pending patient's course Nurse practitioner note has been reviewed by physician. Signing provider agrees with the documented findings, assessment, and plan of care.
[2017-12-25] MEDS: MAGNESIUM SULFATE-D5W PMX 1 GM in DEXTROSE/WATER 1 100ML.BAG IVPB SCH ×2 (09:31→10:29)
--- NOTE | 2017-12-25 10:09 | US ---
EXAMINATION TYPE: US abdomen complete DATE OF EXAM: 12/25/2017 COMPARISON: NONE CLINICAL HISTORY: ascites. ICU patient with chronic alcoholism, malnourished EXAM MEASUREMENTS: Liver Length: 20.0 cm Gallbladder Wall: 0.2 cm CBD: 0.2 cm Spleen: not seen Right Kidney: 11.8 x 5.2 x 4.5 cm Left Kidney: not seen scanning limitations due to patient nonresponsive during exam, unable to cover window to darken gem m and overlying bowel gas Pancreas: not visualized Liver: enlarged and difficult to penetrate Gallbladder: wnl Evidence for sonographic Cerrato's sign: no CBD: wnl Spleen: not seen due to reasons listed above Right Kidney: wnl Left Kidney: not seen due to reasons listed above Upper IVC: wnl Abd Aorta: limited imaging mild ascites seen throughout abdomen IMPRESSION: 1. There is a small amount of ascites with a heterogeneous pattern to the liver. There is also enlarg ed. Correlate for hepatocellular disease.
--- NOTE | 2017-12-25 10:56 | ECHOF ---
Referral Reason:hx of endocarditis MEASUREMENTS -------- HEIGHT: 188.0 cm WEIGHT: 59.0 kg BP: IVSd: 1.2 cm (0.6 - 1.1) LVIDd: 3.4 cm (3.9 - 5.3) LVPWd: 1.1 cm (0.6 - 1.1) IVSs: 1.3 cm LVIDs: 3.0 cm LVPWs: 1.3 cm LA Diam: 2.5 cm (2.7 - 3.8) Ao Diam: 3.7 cm (2.0 - 3.7) AV Cusp: 2.3 cm (1.5 - 2.6) LA Diam: 2.8 cm (2.7 - 3.8) MV EXCURSION: 30.738 mm (> 18.000) MV EF SLOPE: 154 mm/s (70 - 150) EPSS: 0.3 cm MV E Agustin: 0.59 m/s MV DecT: 223 ms MV A Agustin: 0.63 m/s MV E/A Ratio: 0.93 RAP: 5.00 mmHg RVSP: 21.84 mmHg FINDINGS -------- Sinus rhythm. This was a technically good study. The left ventricular size is normal. There is borderline concentric left ventricular hypertrophy. Overall left ventricular systolic function is normal with, an EF between 55 - 60 %. The right ventricle is normal in size. The left atrial size is normal. The right atrial size is normal. There is mild aortic valve sclerosis. There is no evidence of aortic regurgitation. The mitral valve leaflets are mildly thickened. Mild mitral annular calcification present. Mild m itral regurgitation is present. Mild tricuspid regurgitation present. There is no evidence of pulmonary hypertension. The right v entricular systolic pressure, as measured by Doppler, is 21.84mmHg. There is no pulmonic regurgitation present. The aortic root size is normal. There is no pericardial effusion. Moderate Pleural Effusion. CONCLUSIONS -------- 1. The left ventricular size is normal. 2. There is borderline concentric left ventricular hypertrophy. 3. Overall left ventricular systolic function is normal with, an EF between 55 - 60 %. 4. There is mild aortic valve sclerosis. 5. The mitral valve leaflets are mildly thickened. 6. Mild mitral annular calcification present. 7. Mild mitral regurgitation is present. 8. Mild tricuspid regurgitation present. 9. There is no evidence of pulmonary hypertension. 10. The right ventricular systolic pressure, as measured by Doppler, is 21.84mmHg. 11. There is no pulmonic regurgitation present. 12. The aortic root size is normal. 13. There is no pericardial effusion. 14. Moderate Pleural Effusion. CARE MANAGER CNA: Audrey James RDCS
[2017-12-25] MEDS: THIAMINE 100 MG TAB PO SCH ×2 (12:50→17:05)
[2017-12-25] MEDS: MULTIVITAMINS, THERA 1 EACH TAB PO SCH (12:50)
[2017-12-25] MEDS: FOLIC ACID 1 MG TAB PO SCH (12:50)
[2017-12-25] MEDS ORDERED: ALBUMIN HUMAN 5% 500 ML in EMPTY BAG 1 BAG IVPB ONE (15:00)
[2017-12-25 15:27] LABS: Anisocytosis Slight; Basophils % (A) 0 %; Eosinophils # (A) 0.1 k/uL (0-0.7); Eosinophils % (A) 1 %; HCT 34.8 % (39.0-53.0); HGB 10.9 gm/dL (13.0-17.5); Lymphocytes # (A) 1.2 k/uL (1.0-4.8); Lymphocytes % (A) 14 %; MCH 38.2 pg (25.0-35.0); MCHC 31.3 g/dL (31.0-37.0); Macrocytosis Marked; Monocytes # (A) 0.5 k/uL (0-1.0); Monocytes % (A) 5 %; Neutrophils # (A) 6.8 k/uL (1.3-7.7); Neutrophils % (A) 77 %; Platelet Count 376 k/uL (150-450); RBC 2.86 m/uL (4.30-5.90); RDW 16.3 % (11.5-15.5); WBC 8.8 k/uL (3.8-10.6)
[2017-12-25 15:29] LABS: MCV 121.9 fL (80.0-100.0)
[2017-12-25 15:30] LABS: ALT 63 U/L (21-72); AST 168 U/L (17-59); Albumin 2.7 g/dL (3.5-5.0); Anion Gap 8 mmol/L; Blood Urea Nitrogen 8 mg/dL (9-20); Calcium 8.8 mg/dL (8.4-10.2); Carbon Dioxide 30 mmol/L (22-30); Chloride 102 mmol/L (98-107); Glucose 124 mg/dL (74-99); Potassium 4.1 mmol/L (3.5-5.1); Sodium 140 mmol/L (137-145); Total Bilirubin 0.5 mg/dL (0.2-1.3); Total Protein 5.5 g/dL (6.3-8.2)
[2017-12-25 15:47] LABS: Polychromasia Present
[2017-12-25 15:48] LABS: Alkaline Phosphatase 175 U/L (38-126)
--- NOTE | 2017-12-25 15:52 | P.CNPUL ---
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 Over the period of time patient has been developing significant memory loss as well cachexia and poor nutrition and progressive weight loss, review of the data revealed that patient spoke to his mother who lived in [place] she arrived in patient subsequently evaluate by primary care provider, last drink was on 2017. 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 Overnight patient has been extremely anxious and stated he has very low urine output in spite of aggressive fluid resuscitation, patient has been on IV fluid 1 50 mL an hour no urine output has been noted on bladder scan some ascites has been noted straight cath has been unsuccessful in evacuating urine urology has been consulted, patient has been on Cipro protocol very anxious and agitated he has pulled his Pollard's catheter once he is a high risk in that regard as well, patient did receive to the Ativan as per Cipro protocol during evaluation he is nonverbal and noncommunicative sounds sleeping at agitated with stable hemodynamics except mild tachycardia he able to maintain his airway Review of Systems ROS unobtainable: due to mental status All systems: negative Past Medical History Past Medical History: GERD/Reflux, GI Bleed, Memory Impairment Additional Past Medical History / Comment(s): Endocarditis.murmur chronic alcoholism "past severe withdrawl(seizure) at [facility] [place], also pt's mom stated he had gi bleed shile there not sure if it was an ulcer or not". has short erm memory problems. numbness/tingling in feet/hands, past shingles when younger History of Any Multi-Drug Resistant Organisms: None Reported Past Surgical History: No Surgical Hx Reported Additional Past Surgical History / Comment(s): egd/colonoscopy Past Anesthesia/Blood Transfusion Reactions: No Reported Reaction Additional Past Anesthesia/Blood Transfusion Reaction / Comment(s): pt lives by himself. [place] 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 in past worked in [employer]. Smoking Status: Current every day smoker - Past Family History Mother Family Medical History: Hypertension, Renal Disease Additional Family Medical History / Comment(s): graves disease Father Family Medical History: Cancer Additional Family Medical History / Comment(s): depression, colon cancer, pituitary problem Medications and Allergies Home Medications Medication Instructions Recorded Confirmed Type No Known Home Medications [No 12/23/17 12/23/17 History Known Home Medications] Allergies Allergy/AdvReac Type Severity Reaction Status Date / Time No Known Allergies Allergy Verified 12/23/17 18:27 Physical Exam Vitals: Vital Signs Temp Pulse Pulse Pulse Resp BP Pulse Ox 12/25/17 15:00 106 H 18 110/71 94 L 12/25/17 14:00 107 H 17 125/83 100 12/25/17 13:00 112 H 18 109/74 97 12/25/17 12:00 97.6 F 103 H 102 H 16 133/81 99 12/25/17 11:00 119 H 15 133/81 100 12/25/17 10:00 109 H 17 105/75 99 12/25/17 09:00 98 18 112/71 100 12/25/17 08:30 96 112/71 99 12/25/17 08:00 104 H 102 H 18 100/69 98 12/25/17 07:30 97.8 F 105 H 16 100/69 100 12/25/17 07:00 103 H 20 116/74 100 12/25/17 06:30 18 111/76 100 12/25/17 06:00 128 H 18 111/67 98 12/25/17 05:30 106 H 18 115/82 100 12/25/17 05:00 102 H 16 107/68 100 12/25/17 04:30 106 H 105/69 98 12/25/17 04:00 98.1 F 107 H 110/66 100 12/25/17 03:30 112 H 111/72 96 12/25/17 03:00 107 H 109/72 99 12/25/17 02:30 121 H 113/71 98 12/25/17 02:00 127 H 16 116/80 100 12/25/17 01:30 113 H 12 118/82 100 12/25/17 01:00 111 H 16 116/74 100 12/25/17 00:30 103 H 16 109/80 100 12/25/17 00:04 107 H 14 129/83 100 12/25/17 00:00 98.2 F 104 H 18 129/83 100 12/24/17 23:30 117 H 16 91/81 100 12/24/17 23:00 118 H 18 102/66 100 12/24/17 22:30 118 H 111/77 100 12/24/17 22:00 120 H 95/71 100 12/24/17 21:30 117 H 103/64 100 12/24/17 21:00 122 H 111/84 100 12/24/17 20:30 121 H 116/68 100 12/24/17 20:00 98.4 F 128 H 110/67 98 12/24/17 19:30 132 H 131/72 94 L 12/24/17 19:00 128 H 102/65 100 12/24/17 18:43 98.0 F 126 H 18 102/65 98 12/24/17 16:00 130 H Intake and Output 12/25/17 12/25/17 12/25/17 06:59 14:59 22:59 Intake Total 1450 2200 250 Output Total 45 25 Balance 1405 2175 250 Intake: IV 1350 150 Sodium Chloride 0.9% 1, 1350 150 000 ml @ 150 mls/hr IV . Q6H40M ANTONIO Rx#:[id number] Intake, IV Titration 2050 250 Amount Albumin Human 5% 500 ml 250 250 In Empty Bag 1 bag @ 250 mls/hr IVPB ONCE ONE Rx#: [id number] Magnesium Sulfate-D5w Pmx 100 1 gm In Dextrose/Water 1 100ml.bag @ 100 mls/hr IVPB Q1H ANTONIO Rx#: [id number] Sodium Chloride 0.9% 1, 1200 000 ml @ 200 mls/hr IV . Q5H ANTONIO Rx#:[id number] Sodium Chloride 0.9% 500 500 ml @ 999 mls/hr IV .Q31M ONE Rx#:[id number] Oral 100 Output: Urine 45 25 Other: Voiding Method Urinal Urinal # Voids 1 1 Weight 64.5 kg 64.5 kg General appearance: Sedated with Ativan as per protocol in no apparent distress very emaciated cachectic Head exam: Present: atraumatic, normocephalic Eye exam: Present: normal appearance, PERRL, EOMI ENT exam: Present: normal oropharynx, mucous membranes moist, normal external ear exam Neck exam: Present: normal inspection. Absent: tenderness, meningismus Respiratory exam: Present: normal lung sounds bilaterally. Absent: respiratory distress, wheezes, rales Cardiovascular Exam: Present: normal rhythm, tachycardia GI/Abdominal exam: Present: soft. distended, active bowel sounds, no evidence of tenderness, guarding, rebound, rigid Extremities exam: Present: normal inspection, normal capillary refill. Absent: pedal edema Neurological exam: Present: Has been alert, oriented X3, CN II-XII intact, other (No tremors, patient appears calm, conversing normally. Alert and oriented 4. GCS 15.) Currently however patient is sedated with Ativan Skin exam: Present: warm, dry, intact, normal color. Absent: rash Results - Laboratory Findings CBC and BMP: 12/25/17 15:02 12/25/17 15:02 PT/INR, D-dimer PT 10.5 sec (9.0-12.0) 12/23/17 14:37 INR 1.1 (<1.2) 12/23/17 14:37 Abnormal lab findings: Abnormal Labs 12/23/17 12/23/17 12/23/17 14:37 14:37 22:07 WBC 12.1 H RBC 2.97 L Hgb 11.2 L Hct 33.8 L MCV 113.8 H MCH 37.6 H RDW 16.0 H Neutrophils # 8.9 H Sodium 133 L Potassium 2.8 L* Chloride 86 L Carbon Dioxide 32 H BUN 4 L Creatinine 0.54 L Glucose 122 H POC Glucose (mg/dL) Calcium Delta Bilirubin 0.6 H AST 214 H ALT 79 H Alkaline Phosphatase 223 H Total Protein 5.9 L Albumin 3.0 L Urine Protein Trace H U Benzodiazepines Scrn Detected H 12/24/17 12/24/17 12/24/17 07:32 07:32 18:37 WBC RBC 2.80 L Hgb 10.7 L Hct 32.6 L MCV 116.3 H MCH 38.2 H RDW 15.9 H Neutrophils # Sodium 133 L Potassium Chloride 97 L Carbon Dioxide BUN 3 L Creatinine 0.38 L Glucose POC Glucose (mg/dL) 212 H Calcium 8.1 L Delta Bilirubin AST ALT Alkaline Phosphatase Total Protein Albumin Urine Protein U Benzodiazepines Scrn 12/25/17 12/25/17 12/25/17 05:03 15:02 15:02 WBC RBC 2.86 L Hgb 10.9 L Hct 34.8 L MCV 121.9 H D MCH 38.2 H RDW 16.3 H Neutrophils # Sodium Potassium Chloride Carbon Dioxide 31 H BUN 8 L 8 L Creatinine 0.38 L 0.40 L Glucose 103 H 124 H POC Glucose (mg/dL) Calcium 8.3 L Delta Bilirubin AST 168 H ALT Alkaline Phosphatase Total Protein 5.5 L Albumin 2.7 L Urine Protein U Benzodiazepines Scrn - Diagnostic Findings Chest x-ray: report reviewed, image reviewed Assessment and Plan Assessment: Alcohol withdrawal and impending DTs Severe degree of protein calorie malnourishment Encephalopathy likely metabolic Low urine out put Anuria Developing 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
[2017-12-25 16:51] LABS: Hepatitis A Antibody IgM Non-Reactive (Non-Reactive); Hepatitis B Core IgM Non-Reactive (Non-Reactive)
[2017-12-25] MEDS ORDERED: SPIRONOLACTONE 25 MG TAB PO STA (17:59)
[2017-12-25] MEDS: LACTATED RINGERS 500 ML IV SCH ×4 (18:08→19:41)
[2017-12-25 18:15] LABS: HIV AB P24 Non-Reactive (Non-Reactive); HIV P24 AG Non-Reactive (Non-Reactive)
--- NOTE | 2017-12-25 18:19 | EEG ---
ELECTROENCEPHALOGRAM REPORT DATE OF EE12/25/2017 ELECTROENCEPHALOGRAPHIC EXAMINATION REPORT: INDICATION FOR EXAMINATION: This patient is a 37-year-old male being evaluated for alcohol withdrawal syndrome. Patient with history of malnutrition and chronic alcoholism. Patient also with increased confusion. AGE: 37. EEG FINDINGS: A routine 21-channel awake digital EEG recording was accomplished utilizing the 10-20 international system with bipolar and referential montages. The background activity in the most alert resting state consists of a low to medium amplitude, fairly well developed and well sustained 8-9 Hz activity over the posterior head regions. This posterior rhythm attenuates to eye opening. There is a small amount of low amplitude 18-20 Hz beta activity seen maximally over the anterior head regions. Muscle and movement artifact was observed on a few occasions during the tracing. Hyperventilation was not performed. Photic stimulation at flash frequencies of 2-30 Hz produced a minimal occipital driving response. No epileptiform discharges were seen. IMPRESSION: This EEG is within normal limits for the patient's age. The EEG failed to reveal any focal, lateralized, or epileptiform abnormalities. Clinical correlation is recommended. MMODL / IJN: [id number] /
[2017-12-25] MEDS ORDERED: LACTATED RINGERS 500 ML IV ONE (21:20)
--- NOTE | 2017-12-25 23:16 | P.PN ---
Subjective Progress Note Date: 12/25/17 This patient is a 37-year-old right-handed white male who was seen in neurology consultation yesterday for evaluation of alcohol withdrawal syndrome and confusion. Patient had been drinking a fifth of alcohol daily for the past 6 months. He was not eating properly at home and has had significant malnutrition. He was advised admission to the hospital yesterday for further evaluation. She was sent for a computed tomography scan of the brain yesterday which revealed no acute intracranial abnormality. No evidence of hemorrhage, mass effect, midline shift. Patient was started on a CIWA protocol yesterday. Apparently his condition worsen today as CIWA scale indicated worsening symptoms of alcohol withdrawal and impending delirium tremens. He was transferred to the intensive care unit this evening for further close monitoring. Apparently on the medical floor his CIWA scale was 18. After transfer to the intensive care unit his repeat CIWA scale is 10.0. Patient was seen in consultation with psychiatry today for alcohol use disorder and severe alcohol withdrawal. They're recommending alcohol rehab treatment for the patient as well as AA program. They are recommending inpatient alcohol rehab when he is physically able. Patient is resting comfortably. We did review the results of his CAT scan of the brain today with him. There was no evidence of any acute stroke or hemorrhage. He is scheduled to have an EEG done for further assessment of his memory loss. EEG was completed today and was reviewed. His EEG is normal for his age. No evidence of any epileptiform discharges. Patient should be closely monitored for Wernicke's encephalopathy. We will check his vitamin B12 level as well. His case was discussed at length today with the patient as well as his mother was at bedside in the ICU. All of their questions were answered. They are aware of his current neurological status and findings. His overall prognosis at this time remains guarded. Objective - Vital Signs Vital signs: Vital Signs Temp 97.7 F 12/25/17 16:00 Pulse 102 H 12/25/17 16:00 Resp 16 12/25/17 16:00 BP 118/80 12/25/17 16:00 Pulse Ox 100 12/25/17 16:00 Intake & Output 12/24/17 12/25/17 12/25/17 18:59 06:59 18:59 Intake Total 1000 2200 2650 Output Total 800 170 25 Balance 200 2030 2625 Weight 58.967 kg 64.5 kg 64.5 kg Intake: IV 1650 150 Sodium Chloride 0.9% 1, 1650 150 000 ml @ 150 mls/hr IV . Q6H40M ANTONIO Rx#:[id number] Intake, IV Titration 7484 932 6473 Amount Albumin Human 5% 500 ml 500 In Empty Bag 1 bag @ 250 mls/hr IVPB ONCE ONE Rx#: [id number] Magnesium Sulfate-D5w Pmx 100 1 gm In Dextrose/Water 1 100ml.bag @ 100 mls/hr IVPB Q1H ANTONIO Rx#: [id number] Sodium Chloride 0.9% 1, 1000 000 ml @ 125 mls/hr IV . Q8H STA Rx#:[id number] Sodium Chloride 0.9% 1, 450 000 ml @ 150 mls/hr IV . Q6H40M ANTONIO Rx#:[id number] Sodium Chloride 0.9% 1, 1400 000 ml @ 200 mls/hr IV . Q5H ANTONIO Rx#:[id number] Sodium Chloride 0.9% 500 500 ml @ 999 mls/hr IV .Q31M ONE Rx#:[id number] Oral 100 Output: Urine 800 170 25 Other: Voiding Method Urinal Urinal # Voids 1 - Exam Physical examination: PHYSICAL EXAMINATION: Patient is resting comfortably in bed. VITAL SIGNS: Blood pressure is [118/80]. Heart rate is [117]. Respiration is [16 ]. Temperature is [97.7]. HEENT: Head is atraumatic, neck is supple, there were no carotid bruits. CHEST: Lungs are clear to auscultation and percussion. CARDIAC: S1, S2 normal rate and rhythm. There is no murmur. ABDOMEN: Soft and nontender. Bowel sounds are present. EXTREMITIES: There is no pedal edema. Peripheral pulses are present. Neurological examination: Patient has a nonfocal neurological examination today. - Labs CBC & Chem 7: 12/25/17 15:02 12/25/17 15:02 Labs: Abnormal Lab Results - Last 24 Hours (Table) 12/24/17 12/25/17 12/25/17 Range/Units 18:37 05:03 15:02 RBC 2.86 L (4.30-5.90) m/uL Hgb 10.9 L (13.0-17.5) gm/dL Hct 34.8 L (39.0-53.0) % MCV 121.9 H D (80.0-100.0) fL MCH 38.2 H (25.0-35.0) pg RDW 16.3 H (11.5-15.5) % Carbon Dioxide 31 H (22-30) mmol/L BUN 8 L (9-20) mg/dL Creatinine 0.38 L (0.66-1.25) mg/dL Glucose 103 H (74-99) mg/dL POC Glucose (mg/dL) 212 H (75-99) mg/dL Calcium 8.3 L (8.4-10.2) mg/dL AST (17-59) U/L Alkaline Phosphatase (38-126) U/L Total Protein (6.3-8.2) g/dL Albumin (3.5-5.0) g/dL 12/25/17 Range/Units 15:02 RBC (4.30-5.90) m/uL Hgb (13.0-17.5) gm/dL Hct (39.0-53.0) % MCV (80.0-100.0) fL MCH (25.0-35.0) pg RDW (11.5-15.5) % Carbon Dioxide (22-30) mmol/L BUN 8 L (9-20) mg/dL Creatinine 0.40 L (0.66-1.25) mg/dL Glucose 124 H (74-99) mg/dL POC Glucose (mg/dL) (75-99) mg/dL Calcium (8.4-10.2) mg/dL AST 168 H (17-59) U/L Alkaline Phosphatase 175 H (38-126) U/L Total Protein 5.5 L (6.3-8.2) g/dL Albumin 2.7 L (3.5-5.0) g/dL Assessment and Plan (1) Encephalopathy Current Visit: Yes Status: Acute Code(s): G93.40 - ENCEPHALOPATHY, UNSPECIFIED SNOMED Code(s): 99134712 (2) Malnutrition Current Visit: Yes Status: Acute Code(s): E46 - UNSPECIFIED PROTEIN-CALORIE MALNUTRITION SNOMED Code(s): 20924230 (3) Withdrawal symptoms, alcohol Current Visit: Yes Status: Acute Code(s): F10.239 - ALCOHOL DEPENDENCE WITH WITHDRAWAL, UNSPECIFIED SNOMED Code(s): 089917630 Plan: This patient is a 37-year-old male who is seen today in the intensive care unit. He had some mild agitation yesterday but continues close monitoring in the ICU for alcohol withdrawal syndrome. He is currently on a CIWA protocol. He has been receiving Ativan around the clock. He underwent routine EEG today which was reviewed and is normal for his age. We will continue close neurological follow-up for the patient during this admission. Case was discussed today with the patient and his mother was at bedside. All of their questions was answered to their satisfaction. We will continue to follow his progress closely in the ICU. His overall prognosis at this time remains guarded.
[2017-12-26] MEDS: LORazepam 2 MG/ML INJ IV SCH ×3 (00:27→11:11)
[2017-12-26] MEDS: SODIUM CHLORIDE 0.9% 1,000 ML IV SCH ×6 (03:22→23:12)
[2017-12-26 05:34] LABS: Anisocytosis Slight; Basophils % (A) 0 %; Eosinophils # (A) 0.1 k/uL (0-0.7); Eosinophils % (A) 1 %; HCT 31.4 % (39.0-53.0); HGB 10.1 gm/dL (13.0-17.5); Lymphocytes # (A) 1.1 k/uL (1.0-4.8); Lymphocytes % (A) 14 %; MCH 37.9 pg (25.0-35.0); MCHC 32.2 g/dL (31.0-37.0); MCV 117.8 fL (80.0-100.0); Macrocytosis Marked; Mean Platelet Volume 7.5; Monocytes # (A) 0.4 k/uL (0-1.0); Monocytes % (A) 5 %; Neutrophils # (A) 5.8 k/uL (1.3-7.7); Neutrophils % (A) 77 %; Platelet Count 335 k/uL (150-450); RBC 2.66 m/uL (4.30-5.90); WBC 7.6 k/uL (3.8-10.6)
[2017-12-26 05:52] LABS: ALT 55 U/L (21-72); AST 136 U/L (17-59); Albumin 2.5 g/dL (3.5-5.0); Alkaline Phosphatase 164 U/L (38-126); Anion Gap 7 mmol/L; Blood Urea Nitrogen 7 mg/dL (9-20); Calcium 8.9 mg/dL (8.4-10.2); Carbon Dioxide 27 mmol/L (22-30); Chloride 106 mmol/L (98-107); Glucose 102 mg/dL (74-99); Magnesium 1.7 mg/dL (1.6-2.3); Phosphorus 3.1 mg/dL (2.5-4.5); Potassium 4.2 mmol/L (3.5-5.1); Sodium 140 mmol/L (137-145); Total Bilirubin 0.5 mg/dL (0.2-1.3)
[2017-12-26] MEDS ORDERED: SPIRONOLACTONE 25 MG TAB PO ONE (06:00)
[2017-12-26] MEDS: PANTOPRAZOLE 40 MG TABLET PO SCH (09:08)
[2017-12-26] MEDS: NICOTINE 14MG/24HR PATCH TRANSDERM SCH (09:08)
[2017-12-26] MEDS: LIDOCAINE 5% PATCH TOPICAL SCH (09:13)
--- NOTE | 2017-12-26 09:18 | XR ---
EXAMINATION TYPE: XR chest 1V portable DATE OF EXAM: 12/26/2017 COMPARISON: 12/24/2017 HISTORY: Abnormal lung sounds TECHNIQUE: Single frontal view of the chest is obtained. FINDINGS: Elevation right diaphragm with bilateral areas of consolidation in the left cardiac region . Reduced inspiration. No pneumothorax or congestion. Linear changes involving the right midlung atel ectasis or scar heart size stable. IMPRESSION: Subsegmental basilar atelectasis or infiltrate correlate clinically
--- NOTE | 2017-12-26 09:20 | P.PN ---
Subjective Progress Note Date: 12/26/17 37-year-old male who was evaluated by Dr. Childress on an outpatient basis for weakness, malnutrition, and alcoholism on 12/23/2017. Due to the severity of this, Dr. Childress recommended the patient come to the emergency room for further evaluation. The patient has a history of alcoholism and drinks a fifth per day. The patient's mother lives in [place] but apparently they speak weekly via phone. During their last phone conversation, the mother reports that she could tell he was not doing well and she drove to [place]. She found the patient to be extremely weak and unable to stand or ambulate. Additionally, he was very confused. The mother does report chronic short term memory loss. Last reported drink was on Friday12/22/2017. The patient has a history of endocarditis which he states is secondary to dental work in 1996. Patient denies drug usage. Patient does report smoking 1 pack of cigarettes daily. 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 Patient states he used to wear a lumbar support brace but no longer does. 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 The patient has been living off his savings from his business. EKG: Sinus tachycardia. No ST elevation or depression noted. Laboratory data: WBC 12.1. Hemoglobin 11.2. Platelet count 350. PT 10.5. INR 1.1. PTT 23.8. Sodium 133. Potassium 2.8. BUN 4. Creatinine 0.54. Glucose 122. Magnesium 1.7. AST 214. ALT 79. Alkaline phosphatase 223. Total bilirubin 0.8. Total protein 5.9. Albumin 3.0. Lipase 218. Serum alcohol less than 10 Urinalysis is positive for trace proteinuria but otherwise negative. Toxicology is positive for benzodiazepine but otherwise negative. The patient did receive ativan IV. The patient was admitted to the hospital under the care of Dr. Childress. 12/25/2017 Patient seen and evaluated on rounds with Dr. Childress. Patient was transferred to ICU yesterday for closer monitoring secondary to increased CIWA scores. Patient is lethargic but arousable to verbal stimuli. Patient remains on CIWA protocol and also Ativan 1mg q 4 hours scheduled. Nursing reports that patient was cooperative most of the night. Patient has only voided 150cc during the night and was via straight cath. Bladder scan revealed 200-300cc but inaccurate due to patient ascites. Patient was tachycardic yesterday with a rate in the 130s. Rate was improved to 90-110s. Possibility of TPN was discussed yesterday with dietary. Decision was made to give patient 6 small meals daily at this time. Patients mother is at the bedside. Updated on patient condition and plan of care. 12/26/2017 Patient seen and evaluated on rounds with Dr. Childress in the ICU. Patients mother is at the beside. Patient is awake and alert this morning. Cooperative. He complains of mild lower back pain. Mother reports patient was a little restless through the night and believes it is related to his back pain. Patient has been eating well and states his appetite is good. Per nursing, patient voided 5cc per urinal during the night and had two episodes of incontinence. Urine output continues to be decreased despite of aggressive IV hydration and administration of albumin yesterday. Case discussed with Dr. Lauren, who recommends holding off on further administration of albumin. Also recommends not christie catheter at this time due to patient being restless at times and high risk for patient pulling it out. Patient may transfer out of the ICU to medical floor per Dr. Lauren. Objective - Vital Signs Vital signs: Vital Signs Temp 97.4 F L 12/26/17 08:00 Pulse 122 H 12/26/17 08:00 Resp 20 12/25/17 23:00 BP 128/87 12/26/17 08:00 Pulse Ox 96 12/26/17 08:00 Intake & Output 12/25/17 12/26/17 12/26/17 18:59 06:59 18:59 Intake Total 3550 2700 400 Output Total 25 55 Balance 0725 2645 400 Weight 64.5 kg 72.3 kg Intake: IV 150 400 Sodium Chloride 0.9% 1, 150 400 000 ml @ 150 mls/hr IV . Q6H40M [facility] Rx#:[id number] Intake, IV Titration 3400 2300 400 Amount Albumin Human 5% 500 ml 500 In Empty Bag 1 bag @ 250 mls/hr IVPB ONCE ONE Rx#: [id number] Lactated Ringers 500 ml @ 500 999 mls/hr IV .Q31M [facility] Rx#:[id number] Lactated Ringers 500 ml @ 500 999 mls/hr IV .Q31M [facility] Rx#:[id number] Magnesium Sulfate-D5w Pmx 100 1 gm In Dextrose/Water 1 100ml.bag @ 100 mls/hr IVPB Q1H [facility] Rx#: [id number] Sodium Chloride 0.9% 1, 1800 1800 400 000 ml @ 200 mls/hr IV . Q5H [facility] Rx#:[id number] Sodium Chloride 0.9% 500 500 ml @ 999 mls/hr IV .Q31M [facility] Rx#:[id number] Output: Urine 25 55 Other: Voiding Method Urinal Urinal # Voids 1 0 - Exam GENERAL: This is a 37-year-old male in no apparent distress at the time of examination. Emaciated. Appears very thin and frail. HEENT: Head is atraumatic, normocephalic. Pupils are equal, round, and reactive to light. Face very thin with sunken eyes. Conjunctivae are clear. Mucus membranes of the mouth are moist. Neck is supple. RESPIRATORY: Clear to ausculation. No wheezes, rales, or rhonchi. No use of accessory muscles. Patient maintaining oxygen saturation greater than 92%. No chest wall tenderness is noted on palpation or with deep breathing. CARDIOVASCULAR: Slightly tachycardic rate 90-110s. Telemetry reveals SR-ST. Regular rate and rhythm. S1 and S2 noted. No systolic or diastolic murmur auscultated. No JVD noted. No S3 or S4 noted. GASTROINTESTINAL: Distended with ascites throughout. Abdomen soft and round. Bowel sounds auscultated x 4 quadrants. No pain or tenderness noted upon palpation. INTEGUMENTARY: No cyanosis. No jaundice. No rashes noted. No cellulitis noted. EXTREMITIES: Muscle wasting present. 2+ peripheral pulses. No evidence of peripheral edema. No calf tenderness noted. NEUROLOGIC: Cranial nerves II-XII intact. Speech normal. Short term memory loss present. Decreased muscle strength and tone to all extremities. PSYCHIATRIC: Awake, alert, and oriented X 1-2. Cooperative during examination. - Labs CBC & Chem 7: 12/26/17 05:06 12/26/17 05:06 Labs: Abnormal Lab Results - Last 24 Hours (Table) 12/25/17 12/25/17 12/26/17 Range/Units 15:02 15:02 05:06 RBC 2.86 L (4.30-5.90) m/uL Hgb 10.9 L (13.0-17.5) gm/dL Hct 34.8 L (39.0-53.0) % MCV 121.9 H D (80.0-100.0) fL MCH 38.2 H (25.0-35.0) pg RDW 16.3 H (11.5-15.5) % BUN 8 L 7 L (9-20) mg/dL Creatinine 0.40 L 0.40 L (0.66-1.25) mg/dL Glucose 124 H 102 H (74-99) mg/dL AST 168 H 136 H (17-59) U/L Alkaline Phosphatase 175 H 164 H (38-126) U/L Total Protein 5.5 L 5.0 L (6.3-8.2) g/dL Albumin 2.7 L 2.5 L (3.5-5.0) g/dL 12/26/17 Range/Units 05:06 RBC 2.66 L (4.30-5.90) m/uL Hgb 10.1 L (13.0-17.5) gm/dL Hct 31.4 L (39.0-53.0) % MCV 117.8 H (80.0-100.0) fL MCH 37.9 H (25.0-35.0) pg RDW 16.0 H (11.5-15.5) % BUN (9-20) mg/dL Creatinine (0.66-1.25) mg/dL Glucose (74-99) mg/dL AST (17-59) U/L Alkaline Phosphatase (38-126) U/L Total Protein (6.3-8.2) g/dL Albumin (3.5-5.0) g/dL Assessment and Plan Plan: ASSESSMENT: Alcoholism, pt drinks fifth of whiskey daily Alcohol withdrawal Severe protein calorie malnutrition, BMI 15.4 on admission Alcoholic encephalopathy Short term memory loss with possible Wernicke's encephalopathy Severe debility and inability to ambulate History of endocarditis secondary to dental procedure per patient Nicotine dependence, patient is a current cigarette smoker, 1 PPD Hypokalemia, improved with supplementation PLAN: Neurology on consult. Appreciate recommendations and input Discontinue scheduled ativan. Continue CIWA scale and ativan PRN Continue folic acid, thiamine, and daily multivitamin Lidoderm patch x 2 daily to patients lower back Accurate I/O. Please record urine output. If no urine output in 6 hours, please contact [facility] or Dr. Childress Continue IV fluids Patient may transfer to general medical floor with telemetry per Dr. Lauren food processor at the bedside Aldactone 25mg po daily per Dr. Childress Encourage smoking cessation. Continue Nicotine patch Encourage abstinence from ETOH Monitor labs GI prophylaxis: Protonix 40 mg PO Daily DVT prophylaxis: SCDs to bilateral lower extremities Monitor vital signs and address as appropriate Patient would benefit from rehab at the time of discharge Further recommendations pending patient's course Nurse practitioner note has been reviewed by physician. Signing provider agrees with the documented findings, assessment, and plan of care.
[2017-12-26] MEDS: MULTIVITAMINS, THERA 1 EACH TAB PO SCH (11:35)
[2017-12-26] MEDS: FOLIC ACID 1 MG TAB PO SCH (11:35)
[2017-12-26] MEDS: THIAMINE 100 MG TAB PO SCH ×2 (11:35→16:26)
--- NOTE | 2017-12-26 14:01 | P.PN ---
Subjective Progress Note Date: 12/26/17 Principal diagnosis: Mental status and metabolic encephalopathy related to chronic alcoholism, DTs and impending alcohol withdrawal, protein calorie malnourishment, developing dementia and cognitive impairment, generalized weakness and medical debility 12/26/2017, patient seen eval examined during the rounds he is more awake and alert he is shaky but able to eat by himself patient has some issues associated with sleeping down the bed and fall are 24-hour sitter is sitting in bedside with the patient patient has been incontinent and he has been noted to not be able to control the urine. Patient is at high risk of putting Pollard's catheter giving that likelihood of pulling it off patient will need a sitter as well care plan discussed with the primary service at length, noted laboratory data for HIV testing they're negative so as the hepatitis panel, patient appears to have developed end of severe alcohol-related dementia which appears to be early onset likely encephalopathy and severe degree of protein calorie malnourishment a significant psychiatric component appears to be present for further psychiatric evaluation to primary service 37-year-old male who was seen eval reexamined in the ICU patient presented into the hospital with request from primary care provider to be evaluated for a call withdrawal syndrome, 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 Over the period of time patient has been developing significant memory loss as well cachexia and poor nutrition and progressive weight loss, review of the data revealed that patient spoke to his mother who lived in [place] she arrived in patient subsequently evaluate by primary care provider, last drink was on 2017. 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 Overnight patient has been extremely anxious and stated he has very low urine output in spite of aggressive fluid resuscitation, patient has been on IV fluid 1 50 mL an hour no urine output has been noted on bladder scan some ascites has been noted straight cath has been unsuccessful in evacuating urine urology has been consulted, patient has been on Cipro protocol very anxious and agitated he has pulled his Pollard's catheter once he is a high risk in that regard as well, patient did receive to the Ativan as per Cipro protocol during evaluation he is nonverbal and noncommunicative sounds sleeping at agitated with stable hemodynamics except mild tachycardia he able to maintain his airway Objective - Vital Signs Vital signs: Vital Signs Temp 97.4 F L 12/26/17 08:00 Pulse 111 H 12/26/17 10:00 Resp 20 12/26/17 08:00 BP 124/89 12/26/17 10:00 Pulse Ox 96 12/26/17 10:00 Intake & Output 12/25/17 12/26/17 12/26/17 18:59 06:59 18:59 Intake Total 3550 2700 800 Output Total 25 55 Balance 3525 2645 800 Weight 64.5 kg 72.3 kg Intake: IV 150 400 400 0.9 NACL 400 Sodium Chloride 0.9% 1, 150 400 000 ml @ 150 mls/hr IV . Q6H40M [facility] Rx#:[id number] Intake, IV Titration 3400 2300 400 Amount Albumin Human 5% 500 ml 500 In Empty Bag 1 bag @ 250 mls/hr IVPB ONCE [facility] Rx#: [id number] Lactated Ringers 500 ml @ 500 999 mls/hr IV .Q31M [facility] Rx#:[id number] Lactated Ringers 500 ml @ 500 999 mls/hr IV .Q31M [facility] Rx#:[id number] Magnesium Sulfate-D5w Pmx 100 1 gm In Dextrose/Water 1 100ml.bag @ 100 mls/hr IVPB Q1H [facility] Rx#: [id number] Sodium Chloride 0.9% 1, 1800 1800 400 000 ml @ 200 mls/hr IV . Q5H [facility] Rx#:[id number] Sodium Chloride 0.9% 500 500 ml @ 999 mls/hr IV .Q31M [facility] Rx#:[id number] Output: Urine 25 55 Other: Voiding Method Urinal Urinal Urinal Incontinent # Voids 1 0 - Exam General appearance: Sedated with Ativan as per protocol in no apparent distress very emaciated cachectic Head exam: Present: atraumatic, normocephalic Eye exam: Present: normal appearance, PERRL, EOMI ENT exam: Present: normal oropharynx, mucous membranes moist, normal external ear exam Neck exam: Present: normal inspection. Absent: tenderness, meningismus Respiratory exam: Present: normal lung sounds bilaterally. Absent: respiratory distress, wheezes, rales Cardiovascular Exam: Present: normal rhythm, tachycardia GI/Abdominal exam: Present: soft. distended, active bowel sounds, no evidence of tenderness, guarding, rebound, rigid Extremities exam: Present: normal inspection, normal capillary refill. Absent: pedal edema Neurological exam: Patient is alert, oriented X3, CN II-XII intact, intentional tremors present, patient appears calm, conversing normally. Alert and oriented 3. GCS 15.) Skin exam: Present: warm, dry, intact, normal color. Absent: rash - Labs CBC & Chem 7: 12/26/17 05:06 12/26/17 05:06 Labs: Abnormal Lab Results - Last 24 Hours (Table) 12/25/17 12/25/17 12/26/17 Range/Units 15:02 15:02 05:06 RBC 2.86 L (4.30-5.90) m/uL Hgb 10.9 L (13.0-17.5) gm/dL Hct 34.8 L (39.0-53.0) % MCV 121.9 H D (80.0-100.0) fL MCH 38.2 H (25.0-35.0) pg RDW 16.3 H (11.5-15.5) % BUN 8 L 7 L (9-20) mg/dL Creatinine 0.40 L 0.40 L (0.66-1.25) mg/dL Glucose 124 H 102 H (74-99) mg/dL AST 168 H 136 H (17-59) U/L Alkaline Phosphatase 175 H 164 H (38-126) U/L Total Protein 5.5 L 5.0 L (6.3-8.2) g/dL Albumin 2.7 L 2.5 L (3.5-5.0) g/dL 12/26/17 Range/Units 05:06 RBC 2.66 L (4.30-5.90) m/uL Hgb 10.1 L (13.0-17.5) gm/dL Hct 31.4 L (39.0-53.0) % MCV 117.8 H (80.0-100.0) fL MCH 37.9 H (25.0-35.0) pg RDW 16.0 H (11.5-15.5) % BUN (9-20) mg/dL Creatinine (0.66-1.25) mg/dL Glucose (74-99) mg/dL AST (17-59) U/L Alkaline Phosphatase (38-126) U/L Total Protein (6.3-8.2) g/dL Albumin (3.5-5.0) g/dL Assessment and Plan Assessment: Alcohol withdrawal and impending DTs Severe degree of protein calorie malnourishment Encephalopathy likely metabolic and alcohol-related Low urine out put Anuria, patient appears to be incontinent as has been aggressively rehydrated Developing 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 and malnourishment Generalized weakness medical debility short-term memory loss related to above History of smoking and nicotine use History of endocarditis in the remote past Plan: Gentle rehydration CIWA protocol Thiamine and folic acid and MVI Close monitoring in ICU for impending DTs Anuria/low urine output will be monitored observe urology has been consulted DVT and peptic ulcer disease prophylaxis Seizure precautions Withdrawal precautions Further recommendations pending plan of care as per clinical response of the patient And be moved out of the ICU with 24 7 sitter Patient will benefit from psychiatric evaluation and possibly a trial of antidepressant, will defer to primary service Time with Patient: Greater than 30 (Patient seen and examined and evaluated in ICU this morning care plan discussed with the nursing staff and primary service attending as well as nurse practitioner)
[2017-12-26] MEDS ORDERED: NICOTINE 21MG/24HR PATCH TRANSDERM STA (15:17)
--- NOTE | 2017-12-26 15:50 | P.PN ---
Subjective Progress Note Date: 12/25/17 This patient is a 37-year-old right-handed white male who was seen in neurology consultation yesterday for evaluation of alcohol withdrawal syndrome and confusion. Patient had been drinking a fifth of alcohol daily for the past 6 months. He was not eating properly at home and has had significant malnutrition. He was advised admission to the hospital yesterday for further evaluation. She was sent for a computed tomography scan of the brain yesterday which revealed no acute intracranial abnormality. No evidence of hemorrhage, mass effect, midline shift. Patient was started on a CIWA protocol yesterday. Apparently his condition worsen today as CIWA scale indicated worsening symptoms of alcohol withdrawal and impending delirium tremens. He was transferred to the intensive care unit this evening for further close monitoring. Apparently on the medical floor his CIWA scale was 18. After transfer to the intensive care unit his repeat CIWA scale is 10.0. Patient was seen in consultation with psychiatry today for alcohol use disorder and severe alcohol withdrawal. They're recommending alcohol rehab treatment for the patient as well as AA program. They are recommending inpatient alcohol rehab when he is physically able. Patient is resting comfortably. We did review the results of his CAT scan of the brain today with him. There was no evidence of any acute stroke or hemorrhage. He is scheduled to have an EEG done for further assessment of his memory loss. EEG was completed today and was reviewed. His EEG is normal for his age. No evidence of any epileptiform discharges. Patient should be closely monitored for Wernicke's encephalopathy. We will check his vitamin B12 level as well. His case was discussed at length today with the patient as well as his mother was at bedside in the ICU. All of their questions were answered. Patient was seen by Dr. Lauren today and has been recommended to be transferred out of the ICU to a regular medical floor. Patient does seem to be stable and cooperative today. He complains of mild low back pain. He has been eating so well with a good appetite. He should continue on close monitoring for alcohol withdrawal. He is continuing on his CIWA protocol. His overall prognosis at this time remains guarded. Objective - Vital Signs Vital signs: Vital Signs Temp 98.2 F 12/26/17 15:00 Pulse 119 H 12/26/17 15:00 Resp 19 12/26/17 15:00 BP 125/87 12/26/17 15:00 Pulse Ox 97 12/26/17 15:00 Intake & Output 12/25/17 12/26/17 12/26/17 18:59 06:59 18:59 Intake Total 3550 2700 800 Output Total 25 55 Balance 3525 2645 800 Weight 64.5 kg 72.3 kg Intake: IV 150 400 400 0.9 NACL 400 Sodium Chloride 0.9% 1, 150 400 000 ml @ 150 mls/hr IV . Q6H40M [facility] Rx#:[id number] Intake, IV Titration 3400 2300 400 Amount Albumin Human 5% 500 ml 500 In Empty Bag 1 bag @ 250 mls/hr IVPB ONCE [facility] Rx#: [id number] Lactated Ringers 500 ml @ 500 999 mls/hr IV .Q31M [facility] Rx#:[id number] Lactated Ringers 500 ml @ 500 999 mls/hr IV .Q31M [facility] Rx#:[id number] Magnesium Sulfate-D5w Pmx 100 1 gm In Dextrose/Water 1 100ml.bag @ 100 mls/hr IVPB Q1H [facility] Rx#: [id number] Sodium Chloride 0.9% 1, 1800 1800 400 000 ml @ 200 mls/hr IV . Q5H [facility] Rx#:[id number] Sodium Chloride 0.9% 500 500 ml @ 999 mls/hr IV .Q31M [facility] Rx#:[id number] Output: Urine 25 55 Other: Voiding Method Urinal Urinal Urinal Incontinent # Voids 1 0 2 - Exam Physical examination: PHYSICAL EXAMINATION: Patient is resting comfortably in bed. VITAL SIGNS: Blood pressure is [125/87]. Heart rate is [118]. Respiration is [19 ]. Temperature is [98.2]. HEENT: Head is atraumatic, neck is supple, there were no carotid bruits. CHEST: Lungs are clear to auscultation and percussion. CARDIAC: S1, S2 normal rate and rhythm. There is no murmur. ABDOMEN: Soft and nontender. Bowel sounds are present. EXTREMITIES: There is no pedal edema. Peripheral pulses are present. Neurological examination: Patient has a nonfocal neurological examination today. - Labs CBC & Chem 7: 12/26/17 05:06 12/26/17 05:06 Labs: Abnormal Lab Results - Last 24 Hours (Table) 0412/25/17 12/26/17 Range/Units 15:02 15:02 05:06 RBC 2.86 L (4.30-5.90) m/uL Hgb 10.9 L (13.0-17.5) gm/dL Hct 34.8 L (39.0-53.0) % MCV 121.9 H D (80.0-100.0) fL MCH 38.2 H (25.0-35.0) pg RDW 16.3 H (11.5-15.5) % BUN 7 L (9-20) mg/dL Creatinine 0.40 L (0.66-1.25) mg/dL Glucose 102 H (74-99) mg/dL AST 136 H (17-59) U/L Alkaline Phosphatase 175 H 164 H (38-126) U/L Total Protein 5.0 L (6.3-8.2) g/dL Albumin 2.5 L (3.5-5.0) g/dL 12/26/17 Range/Units 05:06 RBC 2.66 L (4.30-5.90) m/uL Hgb 10.1 L (13.0-17.5) gm/dL Hct 31.4 L (39.0-53.0) % MCV 117.8 H (80.0-100.0) fL MCH 37.9 H (25.0-35.0) pg RDW 16.0 H (11.5-15.5) % BUN (9-20) mg/dL Creatinine (0.66-1.25) mg/dL Glucose (74-99) mg/dL AST (17-59) U/L Alkaline Phosphatase (38-126) U/L Total Protein (6.3-8.2) g/dL Albumin (3.5-5.0) g/dL Assessment and Plan (1) Encephalopathy Current Visit: Yes Status: Acute Code(s): G93.40 - ENCEPHALOPATHY, UNSPECIFIED SNOMED Code(s): 94771247 (2) Malnutrition Current Visit: Yes Status: Acute Code(s): E46 - UNSPECIFIED PROTEIN-CALORIE MALNUTRITION SNOMED Code(s): 02567351 (3) Withdrawal symptoms, alcohol Current Visit: Yes Status: Acute Code(s): F10.239 - ALCOHOL DEPENDENCE WITH WITHDRAWAL, UNSPECIFIED SNOMED Code(s): 841874514 Plan: This patient is a 37-year-old male who is seen today in the intensive care unit. He had some mild agitation yesterday but continues close monitoring in the ICU for alcohol withdrawal syndrome. He is currently on a CIWA protocol. He has been receiving Ativan around the clock. He underwent routine EEG today which was reviewed and is normal for his age. We will continue close neurological follow-up for the patient during this admission. Case was discussed today with the patient and his mother was at bedside. All of their questions was answered to their satisfaction. Patient was seen today by Dr. Lauren. He feels he is stable to transfer out of the ICU to the medical floor. Patient is to continue on his current alcohol withdrawal protocol. He has been eating well and seems to be more calm as compared to yesterday. We will continue to follow his progress closely during this admission. We did discuss his EEG findings yesterday with the patient in detail. His EEG is normal for his age. His overall prognosis at this time remains guarded.
[2017-12-26] MEDS: LORazepam 2 MG/ML INJ IV PRN (22:08)
[2017-12-27] MEDS: LORazepam 2 MG/ML INJ IV PRN ×6 (00:20→22:28)
[2017-12-27] MEDS: SODIUM CHLORIDE 0.9% 1,000 ML IV SCH ×5 (04:31→20:49)
[2017-12-27 07:36] LABS: Anisocytosis Slight; Basophils % (A) 0 %; Eosinophils # (A) 0.1 k/uL (0-0.7); Eosinophils % (A) 1 %; HCT 31.8 % (39.0-53.0); Lymphocytes % (A) 11 %; MCH 37.9 pg (25.0-35.0); MCHC 31.5 g/dL (31.0-37.0); MCV 120.2 fL (80.0-100.0); Macrocytosis Marked; Mean Platelet Volume 7.5; Monocytes # (A) 0.5 k/uL (0-1.0); Monocytes % (A) 6 %; Neutrophils # (A) 7.3 k/uL (1.3-7.7); Neutrophils % (A) 79 %; Platelet Count 338 k/uL (150-450); RBC 2.65 m/uL (4.30-5.90); WBC 9.2 k/uL (3.8-10.6)
--- NOTE | 2017-12-27 07:53 | PN ---
PROGRESS NOTE This is a 37-year-old white male who was evaluated by me on an outpatient basis with severe malnutrition, alcoholism on Friday of 12/23/2017, due to the severity of his present condition, he was then recommended to go to the emergency room for further evaluation. The patient has a strong history of alcoholism with drinking approximately a 5th a day. The mother lives in [place], but apparently had been speaking weekly with this gentleman at home. Noticed that his conversation was less and sometimes was very confused other than reported some chronic memory loss and supposedly the last drink of whiskey was on 12/22/2017. The patient also has a history of endocarditis back in 1996. He denies any drug use, intravenous use, he does smoke a pack of cigarettes a day. 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 He actually states he used to wear a lumbar support. 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 Initially his EKG showed tachycardia in the 140 range. His initial his lab was 12.1 WBC, hemoglobin was 11, and platelet count was 350. The PT was 10 with INR 1.1, PTT was 23.8, sodium initially 133 with 2.8 potassium, BUN 4, creatinine 0.45, glucose was 122. Magnesium is 1.7. The ALT was 214 and 79. His initial alkaline phos was 223 with a total bilirubin of 0.8, total protein was 5.9, his albumin was 3. Lipase was 210. Alcohol was less the urinalysis was positive for protein. Toxicity, though was other than was positive for benzodiazepine. On 12/25/2017, he was evaluated by myself, my nurse practitioner in ICU and transferred to ICU on with close monitoring. The patient was very lethargic, but arousable with verbal stimuli. He remains on the CIWA protocol. At that time he was transferred he was an 18, by the time he got to the ICU he was a 10 on a scale. He was given Ativan every 4 hours schedule. Nursing reports that he was very cooperative for most of the night. He only voided 150 mL during the night with straight catheterization. Bladder was relieved of 200 to is 300 mL. We found this to be very inaccurate due to the fact there was probably ascites. We ascertained ID of TPN, but then the decision was made not to and be put on frequent meals on 12/26/2017. Patient was evaluated in ICU with myself, my nurse practitioner. Mother was at the bedside. Patient was awake and alert. Cooperative. Remaining he was cooperative except for the lower back pain. Patient has been eating well. States his appetite is quite good. Per nursing, he has been voiding well, but then on further evaluation was found to be less than 5 mL an hour. At that time, he had been bolused twice with IV fluids and with some inaccurate amount of recording due to incontinence. On 12/27, he was evaluated again with my nurse practitioner again. His urine output was a major concern, was very minimal, was given another bolus of Ringer's lactate and given some albumin. Discussed the case with Dr. Lauren and also at that time we both agreed that probably the albumin with IV was not going to be high enough. With giving it periodically, he probably would benefit from TPN. Unfortunately feeding syndrome was going to be a problem. At this period of time, patient continues to be less restless. Does have some back pain. Recommendation was lidocaine patch and for the most part his labs reviewed. REVIEW OF SYSTEMS: Cardiopulmonary: No shortness of breath. No chest pain. No palpitations. ENT: Is not complaining about any hearing. He is not complaining about his eyes. GI: No hematemesis, no hematochezia. was minimal urination. Neuromuscular: Just the back pain he was complaining about, but he has had extreme weakness in his legs and his arms. Mentation does not appear depressed, but he is cooperative during the examination. Very time at times confused. His labs still are waiting for his labs this morning. LABS: 12/26/2017, had a hemoglobin of 10. His sodium 140, potassium 4.2, 103 chloride, 27 CO2, 0.4, creatinine with 7, BUN and sugars have been well maintained throughout. B12 levels done per shows 64 with a 2.55 total protein. PHYSICAL EXAMINATION: Vital signs today is blood pressure 122/79. His pulse is 122, 98.8, temperature within 20 respiration. EYES: Pupils are equal, round, react to light and accommodation. ENT showed tympanic membranes and pharynx to be negative. Neck is supple. Midline trachea. Chest essentially clear to auscultation. Heart is sinus rhythm with no murmur. Abdomen is soft, nontender, he does have some distention with ascites. Lower extremity pulses are weak. Arm strength and leg strength are extremely weakened in all muscle groups. He has a very hard time even pushing himself up to sit up. Psychiatric: Very hard to distinguish. He does not appear to be confused, but his answers are not necessarily accurate to the questions, so there is definitely some degree of severity of memory loss and thinking. Happy for the evaluation of Dr. Hassan, also Dr. Lauren and Blank Phillips, psychiatrist. All was done in with evaluation. ASSESSMENT: 1. 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 2. Alcohol withdrawal. 3. Severe protein calorie malnutrition with a BMI of 14.4 on admission. 4. Severe debility and inability to ambulate. 5. He has a history of endocarditis secondary to dental procedure per patient. 6. Nicotine withdrawal. 7. Hypokalemia improved. 8. Delirium tremens that are stable at this time. PLAN: I agree with psychiatry. He is going to need rehab to begin with and then alcohol inpatient rehab thereafter. We will continue with protein supplementation and discharge in the next few days. MMODL / IJN: [id number] /
[2017-12-27 07:56] LABS: ALT 57 U/L (21-72); AST 144 U/L (17-59); Albumin 2.4 g/dL (3.5-5.0); Alkaline Phosphatase 142 U/L (38-126); Anion Gap 8 mmol/L; Blood Urea Nitrogen 7 mg/dL (9-20); Calcium 8.8 mg/dL (8.4-10.2); Carbon Dioxide 22 mmol/L (22-30); Chloride 109 mmol/L (98-107); Glucose 94 mg/dL (74-99); Magnesium 1.5 mg/dL (1.6-2.3); Phosphorus 3.3 mg/dL (2.5-4.5); Potassium 4.5 mmol/L (3.5-5.1); Sodium 139 mmol/L (137-145); Total Bilirubin 0.5 mg/dL (0.2-1.3); Total Protein 4.9 g/dL (6.3-8.2)
[2017-12-27 08:05] LABS: Poikilocytosis (M) Present; Polychromasia Present
[2017-12-27] MEDS: LIDOCAINE 5% PATCH TOPICAL SCH (08:40)
[2017-12-27] MEDS: NICOTINE 21MG/24HR PATCH TRANSDERM SCH (08:41)
[2017-12-27] MEDS: MULTIVITAMINS, THERA 1 EACH TAB PO SCH (08:41)
[2017-12-27] MEDS: PANTOPRAZOLE 40 MG TABLET PO SCH (08:41)
[2017-12-27] MEDS: SPIRONOLACTONE 25 MG TAB PO SCH (08:41)
[2017-12-27] MEDS: THIAMINE 100 MG TAB PO SCH ×2 (08:41→16:38)
[2017-12-27] MEDS: FOLIC ACID 1 MG TAB PO SCH (08:41)
--- NOTE | 2017-12-27 11:18 | XR ---
EXAMINATION TYPE: XR abdomen complete w decub , 4 VIEWS DATE OF EXAM ORDERED: 12/27/2017 HISTORY: ascites. COMPARISON: Previous study dated 12/25/2017. FINDINGS: The lung bases are clear. There are mildly dilated loops of large and small bowel throughout the abdomen. There is no evidence of free air. There are phleboliths in the left hemipelvis. There is a moderate amount of stool in the right side of the colon. There is mild gaseous distention of the small bowel. IMPRESSION: NONSPECIFIC ABDOMINAL PICTURE. I'M FAVORING GENERALIZED ILEUS.
[2017-12-27] MEDS: SUCRALFATE 1 GM TAB PO SCH ×3 (12:24→20:50)
--- NOTE | 2017-12-27 15:31 | P.PN ---
Subjective Progress Note Date: 12/27/17 Principal diagnosis: Mental status and metabolic encephalopathy related to chronic alcoholism, DTs and impending alcohol withdrawal, protein calorie malnourishment, developing dementia and cognitive impairment, generalized weakness and medical debility 12/27/2017, patient seen eval examined during the rounds patient has just received the Ativan dose he sleeping right now care plan discussed with the nursing staff at length he underwent a chest x-ray and abdominal x-ray results and report of those studies reviewed patient has been constipated but however. Voiding urine very well, chest x-ray revealed subsegmental atelectasis, abdominal x-ray nonspecific picture may be ileus however significant amount of stool on the right side has been seen patient is being started on lactulose once daily 12/26/2017, patient seen eval examined during the rounds he is more awake and alert he is shaky but able to eat by himself patient has some issues associated with sleeping down the bed and fall are 24-hour sitter is sitting in bedside with the patient patient has been incontinent and he has been noted to not be able to control the urine. Patient is at high risk of putting Pollard's catheter giving that likelihood of pulling it off patient will need a sitter as well care plan discussed with the primary service at length, noted laboratory data for HIV testing they're negative so as the hepatitis panel, patient appears to have developed end of severe alcohol-related dementia which appears to be early onset likely encephalopathy and severe degree of protein calorie malnourishment a significant psychiatric component appears to be present for further psychiatric evaluation to primary service 37-year-old male who was seen eval reexamined in the ICU patient presented into the hospital with request from primary care provider to be evaluated for a call withdrawal syndrome, 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 Over the period of time patient has been developing significant memory loss as well cachexia and poor nutrition and progressive weight loss, review of the data revealed that patient spoke to his mother who lived in [place] she arrived in patient subsequently evaluate by primary care provider, last drink was on 2017. 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 Overnight patient has been extremely anxious and stated he has very low urine output in spite of aggressive fluid resuscitation, patient has been on IV fluid 1 50 mL an hour no urine output has been noted on bladder scan some ascites has been noted straight cath has been unsuccessful in evacuating urine urology has been consulted, patient has been on Cipro protocol very anxious and agitated he has pulled his Pollard's catheter once he is a high risk in that regard as well, patient did receive to the Ativan as per Cipro protocol during evaluation he is nonverbal and noncommunicative sounds sleeping at agitated with stable hemodynamics except mild tachycardia he able to maintain his airway Objective - Vital Signs Vital signs: Vital Signs Temp 97.8 F 12/27/17 07:00 Pulse 126 H 12/27/17 07:00 Resp 20 12/27/17 07:00 BP 124/82 12/27/17 07:00 Pulse Ox 97 12/27/17 07:00 Intake & Output 12/26/17 12/27/17 12/27/17 18:59 06:59 18:59 Intake Total 800 1100 1080 Balance 800 1100 1080 Intake: IV 400 0.9 NACL 400 Intake, IV Titration 400 960 Amount Sodium Chloride 0.9% 1, 400 960 000 ml @ 120 mls/hr IV . Q8H20M [facility] Rx#:[id number] Oral 1100 120 Other: Voiding Method Urinal Urinal Incontinent Incontinent # Voids 2 2 - Exam General appearance: Sedated with Ativan as per protocol in no apparent distress very emaciated cachectic Head exam: Present: atraumatic, normocephalic Eye exam: Present: normal appearance, PERRL, EOMI ENT exam: Present: normal oropharynx, mucous membranes moist, normal external ear exam Neck exam: Present: normal inspection. Absent: tenderness, meningismus Respiratory exam: Present: normal lung sounds bilaterally. Absent: respiratory distress, wheezes, rales Cardiovascular Exam: Present: normal rhythm, tachycardia GI/Abdominal exam: Present: soft. distended, active bowel sounds, no evidence of tenderness, guarding, rebound, rigid Extremities exam: Present: normal inspection, normal capillary refill. Absent: pedal edema Neurological exam: Patient is alert, oriented X3, CN II-XII intact, intentional tremors present, patient appears calm, conversing normally. Alert and oriented 3. GCS 15.) Skin exam: Present: warm, dry, intact, normal color. Absent: rash - Labs CBC & Chem 7: 18 06:59 12/27/17 06:59 Labs: Abnormal Lab Results - Last 24 Hours (Table) 12/26/17 12/27/17 12/27/17 Range/Units 05:06 06:59 06:59 RBC 2.65 L (4.30-5.90) m/uL Hgb 10.0 L (13.0-17.5) gm/dL Hct 31.8 L (39.0-53.0) % MCV 120.2 H (80.0-100.0) fL MCH 37.9 H (25.0-35.0) pg RDW 16.0 H (11.5-15.5) % Chloride 109 H (98-107) mmol/L BUN 7 L (9-20) mg/dL Creatinine 0.34 L (0.66-1.25) mg/dL Magnesium 1.5 L (1.6-2.3) mg/dL AST 144 H (17-59) U/L Alkaline Phosphatase 142 H (38-126) U/L Total Protein 4.9 L (6.3-8.2) g/dL Albumin 2.4 L (3.5-5.0) g/dL Vitamin B12 1641.0 H (200.0-944.0) pg/mL Assessment and Plan Assessment: Alcohol withdrawal and impending DTs VS likely related to chronic constipation Severe degree of protein calorie malnourishment Encephalopathy likely metabolic and alcohol-related Low urine out put Anuria, patient appears to be incontinent as has been aggressively rehydrated Developing 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 and malnourishment Generalized weakness medical debility short-term memory loss related to above History of smoking and nicotine use History of endocarditis in the remote past Plan: Gentle rehydration Trial of lactulose CIWA protocol Thiamine and folic acid and MVI Close monitoring on medical floor for falls as well as for impending DTs Anuria/low urine output will be monitored observe lately patient has been voiding very well DVT and peptic ulcer disease prophylaxis Seizure precautions Withdrawal precautions Further recommendations pending plan of care as per clinical response of the patient Continue sitter 24 7 sitter Patient will benefit from psychiatric evaluation and possibly a trial of antidepressant, will defer to primary service Time with Patient: Greater than 30
[2017-12-27] MEDS ORDERED: LACTULOSE 20 GM/30 ML CUP PO SCH (21:00)
--- NOTE | 2017-12-27 23:12 | P.PN ---
Subjective Progress Note Date: 12/27/17 This patient is a 37-year-old right-handed white male who was seen in neurology consultation yesterday for evaluation of alcohol withdrawal syndrome and confusion. Patient had been drinking a fifth of alcohol daily for the past 6 months. He was not eating properly at home and has had significant malnutrition. He was advised admission to the hospital yesterday for further evaluation. She was sent for a computed tomography scan of the brain yesterday which revealed no acute intracranial abnormality. No evidence of hemorrhage, mass effect, midline shift. Patient was started on a CIWA protocol yesterday. Apparently his condition worsen today as CIWA scale indicated worsening symptoms of alcohol withdrawal and impending delirium tremens. He was transferred to the intensive care unit this evening for further close monitoring. Apparently on the medical floor his CIWA scale was 18. After transfer to the intensive care unit his repeat CIWA scale is 10.0. Patient was seen in consultation with psychiatry today for alcohol use disorder and severe alcohol withdrawal. They're recommending alcohol rehab treatment for the patient as well as AA program. They are recommending inpatient alcohol rehab when he is physically able. Patient is resting comfortably. We did review the results of his CAT scan of the brain today with him. There was no evidence of any acute stroke or hemorrhage. He is scheduled to have an EEG done for further assessment of his memory loss. EEG was completed today and was reviewed. His EEG is normal for his age. No evidence of any epileptiform discharges. Patient should be closely monitored for Wernicke's encephalopathy. We will check his vitamin B12 level as well. His case was discussed at length today with the patient as well as his mother was at bedside in the ICU. All of their questions were answered. Patient was seen by Dr. Lauren today and has been recommended to be transferred out of the ICU to a regular medical floor. Patient does seem to be stable and cooperative today. He complains of mild low back pain. He has been eating so well with a good appetite. He should continue on close monitoring for alcohol withdrawal. He is continuing on his CIWA protocol. His overall prognosis at this time remains guarded. Objective - Vital Signs Vital signs: Vital Signs Temp 98.4 F 12/27/17 15:00 Pulse 114 H 12/27/17 15:00 Resp 20 12/27/17 15:00 BP 112/80 12/27/17 15:00 Pulse Ox 98 12/27/17 15:00 Intake & Output 12/26/17 12/27/17 12/27/17 18:59 06:59 18:59 Intake Total 800 1100 1320 Balance 800 1100 1320 Intake: IV 400 0.9 NACL 400 Intake, IV Titration 400 960 Amount Sodium Chloride 0.9% 1, 400 960 000 ml @ 120 mls/hr IV . Q8H20M [facility] Rx#:[id number] Oral 1100 360 Other: Voiding Method Urinal Urinal Incontinent Incontinent # Voids 2 2 - Exam Physical examination: PHYSICAL EXAMINATION: Patient is resting comfortably in bed. VITAL SIGNS: Blood pressure is [120/79]. Heart rate is [133]. Respiration is [20 ]. Temperature is [99.0]. HEENT: Head is atraumatic, neck is supple, there were no carotid bruits. CHEST: Lungs are clear to auscultation and percussion. CARDIAC: S1, S2 normal rate and rhythm. There is no murmur. ABDOMEN: Soft and nontender. Bowel sounds are present. EXTREMITIES: There is no pedal edema. Peripheral pulses are present. Neurological examination: Patient has a nonfocal neurological examination today. - Labs CBC & Chem 7: 12/27/17 06:59 12/27/17 06:59 Labs: Abnormal Lab Results - Last 24 Hours (Table) 12/27/17 12/27/17 Range/Units 06:59 06:59 RBC 2.65 L (4.30-5.90) m/uL Hgb 10.0 L (13.0-17.5) gm/dL Hct 31.8 L (39.0-53.0) % MCV 120.2 H (80.0-100.0) fL MCH 37.9 H (25.0-35.0) pg RDW 16.0 H (11.5-15.5) % Chloride 109 H (98-107) mmol/L BUN 7 L (9-20) mg/dL Creatinine 0.34 L (0.66-1.25) mg/dL Magnesium 1.5 L (1.6-2.3) mg/dL AST 144 H (17-59) U/L Alkaline Phosphatase 142 H (38-126) U/L Total Protein 4.9 L (6.3-8.2) g/dL Albumin 2.4 L (3.5-5.0) g/dL Assessment and Plan (1) Encephalopathy Current Visit: Yes Status: Acute Code(s): G93.40 - ENCEPHALOPATHY, UNSPECIFIED SNOMED Code(s): 83819470 (2) Malnutrition Current Visit: Yes Status: Acute Code(s): E46 - UNSPECIFIED PROTEIN-CALORIE MALNUTRITION SNOMED Code(s): 46508315 (3) Withdrawal symptoms, alcohol Current Visit: Yes Status: Acute Code(s): F10.239 - ALCOHOL DEPENDENCE WITH WITHDRAWAL, UNSPECIFIED SNOMED Code(s): 216104162 Plan: This patient is a 37-year-old male who is seen today in the intensive care unit. He had some mild agitation yesterday but continues close monitoring in the ICU for alcohol withdrawal syndrome. He is currently on a CIWA protocol. He has been receiving Ativan around the clock. He underwent routine EEG today which was reviewed and is normal for his age. We will continue close neurological follow-up for the patient during this admission. Case was discussed today with the patient and his mother was at bedside. All of their questions was answered to their satisfaction. Patient was seen today by Dr. Lauren. He feels he is stable to transfer out of the ICU to the medical floor. Patient is to continue on his current alcohol withdrawal protocol. He has been eating well and seems to be more calm as compared to yesterday. We will continue to follow his progress closely during this admission. We did discuss his EEG findings yesterday with the patient in detail. His EEG is normal for his age. The patient continues to show signs of mild withdrawal syndrome. Heart rate is slightly elevated. He also has a slight elevated temperature this evening. Would recommend ongoing close monitoring for early signs of DTs as well. Plan is for possible discharge of this patient in the next few days to home with follow-up in the outpatient drug rehab unit. His overall prognosis at this time remains guarded.
[2017-12-28] MEDS: LORazepam 2 MG/ML INJ IV PRN ×3 (03:48→11:40)
[2017-12-28] MEDS: SODIUM CHLORIDE 0.9% 1,000 ML IV SCH ×8 (03:49→21:50)
[2017-12-28] MEDS: LIDOCAINE 5% PATCH TOPICAL SCH (07:58)
[2017-12-28] MEDS: NICOTINE 21MG/24HR PATCH TRANSDERM SCH (07:58)
[2017-12-28] MEDS: PANTOPRAZOLE 40 MG TABLET PO SCH (07:59)
[2017-12-28] MEDS: SUCRALFATE 1 GM TAB PO SCH ×4 (07:59→21:50)
[2017-12-28] MEDS: SPIRONOLACTONE 25 MG TAB PO SCH (07:59)
[2017-12-28 08:00] LABS: Basophils % (A) 0 %; Eosinophils # (A) 0.1 k/uL (0-0.7); Eosinophils % (A) 1 %; HCT 33.2 % (39.0-53.0); HGB 10.4 gm/dL (13.0-17.5); Hypochromasia Slight; Lymphocytes # (A) 1.2 k/uL (1.0-4.8); Lymphocytes % (A) 11 %; MCH 37.7 pg (25.0-35.0); MCHC 31.4 g/dL (31.0-37.0); MCV 119.9 fL (80.0-100.0); Macrocytosis Marked; Mean Platelet Volume 7.7; Monocytes # (A) 0.8 k/uL (0-1.0); Monocytes % (A) 7 %; Neutrophils # (A) 8.2 k/uL (1.3-7.7); Neutrophils % (A) 78 %; Platelet Count 308 k/uL (150-450); RBC 2.77 m/uL (4.30-5.90); RDW 15.8 % (11.5-15.5); WBC 10.5 k/uL (3.8-10.6)
[2017-12-28 08:15] LABS: ALT 56 U/L (21-72); AST 124 U/L (17-59); Albumin 2.4 g/dL (3.5-5.0); Alkaline Phosphatase 146 U/L (38-126); Anion Gap 8 mmol/L; Blood Urea Nitrogen 8 mg/dL (9-20); Carbon Dioxide 23 mmol/L (22-30); Chloride 108 mmol/L (98-107); Glucose 101 mg/dL (74-99); Magnesium 1.5 mg/dL (1.6-2.3); Phosphorus 4.3 mg/dL (2.5-4.5); Potassium 4.5 mmol/L (3.5-5.1); Sodium 139 mmol/L (137-145); Total Bilirubin 0.5 mg/dL (0.2-1.3); Total Protein 5.1 g/dL (6.3-8.2)
[2017-12-28 08:57] LABS: Poikilocytosis (M) Present
[2017-12-28] MEDS: LACTULOSE 20 GM/30 ML CUP PO SCH ×2 (11:39→21:42)
[2017-12-28] MEDS: MAGNESIUM SULFATE-D5W PMX 1 GM in DEXTROSE/WATER 1 100ML.BAG IVPB SCH ×2 (11:39→13:09)
[2017-12-28] MEDS: MULTIVITAMINS, THERA 1 EACH TAB PO SCH (11:41)
[2017-12-28] MEDS: FOLIC ACID 1 MG TAB PO SCH (11:41)
[2017-12-28] MEDS: THIAMINE 100 MG TAB PO SCH ×2 (11:41→17:58)
--- NOTE | 2017-12-28 13:43 | PN ---
PROGRESS NOTE This is a 37-year-old white male who was evaluated by me in outpatient basis with severe malnutrition, alcoholism 12/23/2017. Due to the severity of his present condition, he was recommend to go to the emergency for further evaluation. The patient has a long history of alcoholism and drinking approximately a 5th a day for a good period time. His mother, who lives in [place], apparently had been talking to him weekly and the conversations had either decreased or slowed. She was worried, came to town. At that period of time she found him sitting in his house pretty much with no food with a fair amount of emaciation and just old whiskey bottle sitting around. At this time, he is placed in the hospital for malnutrition, alcoholism, dehydration and what appears to be cirrhosis of the liver. The patient also has a history of endocarditis back in apparently from a tooth abscess. He denies any intravenous drug use. He smokes about a pack of cigarettes a day. 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 He actually states he also wears a lumbar support from time to time. 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 His EKG is showing a tachycardia somewhere about 110-115 presently. He still having a fair amount of abdominal pain. His initial enzymes pretty much show some elevation of ST enzymes, decrease in urine function testing of lab indicative of malnutrition. His initial evaluation was that of lethargy, very weak, unable to stand on his own with an obvious emaciation type of picture in general. He was brought into the hospital for evaluations. He had a CIWA protocol but into affect and initially he was 18 and after evaluation treatment in the ICU, he then went to 10. He was then released after 3 days in ICU to a regular floor. He still has some DT symptomatology and is well controlled from a dietary point of view on Ativan and he has had 24 hours nursing coverage sitter until today. He also has his mother has been with him fairly for most of the period of time. She is by his side. She is also taking care of his financial needs and tried to organized his home financial needs at the same time. He has been evaluated for the 1st 3 days with both me and my nurse practitioner, Laurie Gonzalez. We have been able to follow him accordingly in ICU room designer, Dr. Lauren was on his case and he has also been following with a nutritional consult and we did have this gentleman on a fairly high-protein diet, but actually a fair diet. At this period of time I am seeing him. REVIEW OF SYSTEMS: His eyes he is basically says he can see okay. ENT says he just has a dry mouth. Neck is less problems swallowing today. Chest he has cardiopulmonary he says no shortness of breath. No chest pain. No palpitations. : Is negative for him at this period of time. GI: He does have nonspecific abdominal pain and he has been constipated. Neuromuscular: He has had some back pain, lower back since he has been here and he has extreme weakness due to muscle loss of strength in both his arms and his legs. Mentation: He does not appear to be depressed, but he is fairly confused and Dr. Hassan is on the case and obviously there is evidence here for neck syndrome and for further evaluation to occur with time in his nutrition. At this point no new lab was performed. PHYSICAL EXAMINATION: Alert white male with a fair amount of abdominal pain. Vital signs showed a blood pressure 120/70, pulse is about 118, temperature is 98, respiratory is 20. EYES: Pupils are equal, round, reactive to light and accommodation. ENT showed tympanic membranes and pharynx to be negative. NECK: Supple. Midline trachea. Chest essentially clear to auscultation. His heart is sinus rhythm with no murmur. Abdomen is rather firm with ascites. It is basically tenderness in general with some distention. His lower extremity pulses are weak. Arm strength and leg strength are extremely weak in all muscle groups. He has a very hard time. He has been pushing himself to a sitting position. PSYCHIATRIC: Very hard to distinguish due to his confusion. He has a fair amount of obviously his thought process is very slow and inaccurate questioning asking at this period of time. DIAGNOSES: 1. 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 2. Alcohol withdrawal. 3. Severe protein caloric malnutrition, a BMI of 14 on admission. Severe debility and emaciation with inability to ambulate. 4. He has history of endocarditis secondary from dental procedures, nicotine withdrawal, hypokalemia, delirium tremens that are now sterile and questionable early ileus and severe constipation on abdominal flat plate. At this period of time, we are going to add lactulose twice a day. We will continue with feeding. We will be getting with physical therapy rehabilitation program. His prognosis is very guarded. Long talk with his mother who is going to try to take over his financial and home needs. I told her I would be happy to assist her with that. I do trust her. I have known her for many years. TREVON / GABBY: [id number] /
--- NOTE | 2017-12-28 14:56 | P.PN ---
Subjective Progress Note Date: 12/28/17 This patient is a 37-year-old right-handed white male who was seen in neurology consultation yesterday for evaluation of alcohol withdrawal syndrome and confusion. Patient had been drinking a fifth of alcohol daily for the past 6 months. He was not eating properly at home and has had significant malnutrition. He was advised admission to the hospital yesterday for further evaluation. She was sent for a computed tomography scan of the brain yesterday which revealed no acute intracranial abnormality. No evidence of hemorrhage, mass effect, midline shift. Patient was started on a CIWA protocol yesterday. Apparently his condition worsen today as CIWA scale indicated worsening symptoms of alcohol withdrawal and impending delirium tremens. He was transferred to the intensive care unit this evening for further close monitoring. Apparently on the medical floor his CIWA scale was 18. After transfer to the intensive care unit his repeat CIWA scale is 10.0. Patient was seen in consultation with psychiatry today for alcohol use disorder and severe alcohol withdrawal. They're recommending alcohol rehab treatment for the patient as well as AA program. They are recommending inpatient alcohol rehab when he is physically able. Patient is resting comfortably. We did review the results of his CAT scan of the brain today with him. There was no evidence of any acute stroke or hemorrhage. He is scheduled to have an EEG done for further assessment of his memory loss. EEG was completed today and was reviewed. His EEG is normal for his age. No evidence of any epileptiform discharges. Patient should be closely monitored for Wernicke's encephalopathy. We will check his vitamin B12 level as well. Patient was transferred out of the intensive care unit to the medical floor. He continues to do well other than complaining of increasing abdominal pain. According to his mother who is at bedside his abdominal pain symptoms have worsened in the last 24 hours. According to the mother gastroenterology has been consulted. Patient does have distention of the abdomen and does complain of generalized pain. His dose of lactulose was increased today. We will need to await further recommendations from gastroenterology. Objective - Vital Signs Vital signs: Vital Signs Temp 99.3 F 12/28/17 07:00 Pulse 130 H 12/28/17 08:00 Resp 20 12/28/17 08:00 BP 126/82 12/28/17 07:00 Pulse Ox 95 12/28/17 07:00 Intake & Output 12/27/17 12/28/17 12/28/17 18:59 06:59 18:59 Intake Total 1320 240 Output Total 350 150 Balance 1320 -350 90 Intake: Intake, IV Titration 960 Amount Sodium Chloride 0.9% 1, 960 000 ml @ 170 mls/hr IV . Q5H53M REPLACED BY [facility] Rx#:[id number] Oral 360 240 Output: Urine 350 150 Other: Voiding Method Urinal Urinal # Voids 2 0 # Bowel Movements 0 - Exam Physical examination: PHYSICAL EXAMINATION: Patient is resting comfortably in bed. VITAL SIGNS: Blood pressure is [126/82]. Heart rate is [132]. Respiration is [20 ]. Temperature is [99.3]. HEENT: Head is atraumatic, neck is supple, there were no carotid bruits. CHEST: Lungs are clear to auscultation and percussion. CARDIAC: S1, S2 normal rate and rhythm. There is no murmur. ABDOMEN: Abdomen is distended. It is painful to touch. Distention is quite noticeable bilaterally. EXTREMITIES: There is no pedal edema. Peripheral pulses are present. Neurological examination: Patient has a nonfocal neurological examination today. - Labs CBC & Chem 7: 12/28/17 07:36 12/28/17 07:36 Labs: Abnormal Lab Results - Last 24 Hours (Table) 12/28/17 12/28/17 Range/Units 07:36 07:36 RBC 2.77 L (4.30-5.90) m/uL Hgb 10.4 L (13.0-17.5) gm/dL Hct 33.2 L (39.0-53.0) % MCV 119.9 H (80.0-100.0) fL MCH 37.7 H (25.0-35.0) pg RDW 15.8 H (11.5-15.5) % Neutrophils # 8.2 H (1.3-7.7) k/uL Chloride 108 H (98-107) mmol/L BUN 8 L (9-20) mg/dL Creatinine 0.33 L (0.66-1.25) mg/dL Glucose 101 H (74-99) mg/dL Magnesium 1.5 L (1.6-2.3) mg/dL AST 124 H (17-59) U/L Alkaline Phosphatase 146 H (38-126) U/L Total Protein 5.1 L (6.3-8.2) g/dL Albumin 2.4 L (3.5-5.0) g/dL Assessment and Plan (1) Encephalopathy Current Visit: Yes Status: Acute Code(s): G93.40 - ENCEPHALOPATHY, UNSPECIFIED SNOMED Code(s): 83846585 (2) Malnutrition Current Visit: Yes Status: Acute Code(s): E46 - UNSPECIFIED PROTEIN-CALORIE MALNUTRITION SNOMED Code(s): 22916455 (3) Withdrawal symptoms, alcohol Current Visit: Yes Status: Acute Code(s): F10.239 - ALCOHOL DEPENDENCE WITH WITHDRAWAL, UNSPECIFIED SNOMED Code(s): 135213110 Plan: This patient is a 37-year-old male who is seen today in the intensive care unit. He had some mild agitation yesterday but continues close monitoring in the ICU for alcohol withdrawal syndrome. He is currently on a CIWA protocol. He has been receiving Ativan around the clock. He underwent routine EEG today which was reviewed and is normal for his age. We will continue close neurological follow-up for the patient during this admission. Case was discussed today with the patient and his mother was at bedside. All of their questions was answered to their satisfaction. Patient was seen today by Dr. Lauren. He feels he is stable to transfer out of the ICU to the medical floor. Patient is to continue on his current alcohol withdrawal protocol. He has been eating well and seems to be more calm as compared to yesterday. We will continue to follow his progress closely during this admission. We did discuss his EEG findings yesterday with the patient in detail. His EEG is normal for his age. The patient continues to show signs of mild withdrawal syndrome. Heart rate is slightly elevated. He also has a slight elevated temperature this evening. Would recommend ongoing close monitoring for early signs of DTs as well. Patient is complaining of increase abdominal pain. He is noted to have abdominal distention today. Would recommend gastroenterology consultation for him. His overall prognosis at this time remains guarded.
[2017-12-29] MEDS ORDERED: ATENOLOL 25 MG TAB PO STA (00:37)
[2017-12-29] MEDS: SODIUM CHLORIDE 0.9% 1,000 ML IV SCH ×3 (01:38→16:21)
[2017-12-29] MEDS ORDERED: LORazepam 2 MG/ML INJ IM STA (02:42)
[2017-12-29 08:44] LABS: Basophils % (A) 0 %; Eosinophils # (A) 0.1 k/uL (0-0.7); Eosinophils % (A) 1 %; HCT 31.9 % (39.0-53.0); Hypochromasia Slight; Lymphocytes % (A) 10 %; MCH 37.2 pg (25.0-35.0); MCHC 31.3 g/dL (31.0-37.0); MCV 118.8 fL (80.0-100.0); Macrocytosis Marked; Mean Platelet Volume 8.2; Monocytes % (A) 10 %; Neutrophils # (A) 7.7 k/uL (1.3-7.7); Neutrophils % (A) 77 %; Platelet Count 267 k/uL (150-450); RBC 2.68 m/uL (4.30-5.90); RDW 15.6 % (11.5-15.5)
[2017-12-29 09:01] LABS: ALT 51 U/L (21-72); AST 99 U/L (17-59); Albumin 2.2 g/dL (3.5-5.0); Alkaline Phosphatase 126 U/L (38-126); Anion Gap 7 mmol/L; Blood Urea Nitrogen 10 mg/dL (9-20); Calcium 8.6 mg/dL (8.4-10.2); Carbon Dioxide 25 mmol/L (22-30); Chloride 108 mmol/L (98-107); Glucose 105 mg/dL (74-99); Magnesium 1.7 mg/dL (1.6-2.3); Phosphorus 4.8 mg/dL (2.5-4.5); Sodium 140 mmol/L (137-145); Total Bilirubin 0.4 mg/dL (0.2-1.3); Total Protein 4.6 g/dL (6.3-8.2)
[2017-12-29] MEDS: LIDOCAINE 5% PATCH TOPICAL SCH (09:27)
[2017-12-29] MEDS: SUCRALFATE 1 GM TAB PO SCH ×4 (09:28→21:50)
[2017-12-29] MEDS: MULTIVITAMINS, THERA 1 EACH TAB PO SCH (09:28)
[2017-12-29] MEDS: FOLIC ACID 1 MG TAB PO SCH (09:28)
[2017-12-29] MEDS: NICOTINE 21MG/24HR PATCH TRANSDERM SCH (09:28)
[2017-12-29] MEDS: THIAMINE 100 MG TAB PO SCH ×2 (09:28→16:21)
[2017-12-29] MEDS: LACTULOSE 20 GM/30 ML CUP PO SCH ×2 (09:29→21:48)
[2017-12-29] MEDS: PANTOPRAZOLE 40 MG TABLET PO SCH (09:29)
[2017-12-29] MEDS: SPIRONOLACTONE 25 MG TAB PO SCH (09:29)
--- NOTE | 2017-12-29 10:33 | P.PN ---
Subjective Progress Note Date: 12/29/17 37-year-old male who was evaluated by Dr. Childress on an outpatient basis for weakness, malnutrition, and alcoholism on 12/23/2017. Due to the severity of this, Dr. Childress recommended the patient come to the emergency room for further evaluation. The patient has a history of alcoholism and drinks a fifth per day. The patient's mother lives in [place] but apparently they speak weekly via phone. During their last phone conversation, the mother reports that she could tell he was not doing well and she drove to [place]. She found the patient to be extremely weak and unable to stand or ambulate. Additionally, he was very confused. The mother does report chronic short term memory loss. Last reported drink was on Friday12/22/2017. The patient has a history of endocarditis which he states is secondary to dental work in 1996. Patient denies drug usage. Patient does report smoking 1 pack of cigarettes daily. 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 Patient states he used to wear a lumbar support brace but no longer does. 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 The patient has been living off his savings from his business. EKG: Sinus tachycardia. No ST elevation or depression noted. Laboratory data: WBC 12.1. Hemoglobin 11.2. Platelet count 350. PT 10.5. INR 1.1. PTT 23.8. Sodium 133. Potassium 2.8. BUN 4. Creatinine 0.54. Glucose 122. Magnesium 1.7. AST 214. ALT 79. Alkaline phosphatase 223. Total bilirubin 0.8. Total protein 5.9. Albumin 3.0. Lipase 218. Serum alcohol less than 10 Urinalysis is positive for trace proteinuria but otherwise negative. Toxicology is positive for benzodiazepine but otherwise negative. The patient did receive ativan IV. The patient was admitted to the hospital under the care of Dr. Childress. 12/25/2017 Patient seen and evaluated on rounds with Dr. Childress. Patient was transferred to ICU yesterday for closer monitoring secondary to increased CIWA scores. Patient is lethargic but arousable to verbal stimuli. Patient remains on CIWA protocol and also Ativan 1mg q 4 hours scheduled. Nursing reports that patient was cooperative most of the night. Patient has only voided 150cc during the night and was via straight cath. Bladder scan revealed 200-300cc but inaccurate due to patient ascites. Patient was tachycardic yesterday with a rate in the 130s. Rate was improved to 90-110s. Possibility of TPN was discussed yesterday with dietary. Decision was made to give patient 6 small meals daily at this time. Patients mother is at the bedside. Updated on patient condition and plan of care. 12/26/2017 Patient seen and evaluated on rounds with Dr. Childress in the ICU. Patients mother is at the beside. Patient is awake and alert this morning. Cooperative. He complains of mild lower back pain. Mother reports patient was a little restless through the night and believes it is related to his back pain. Patient has been eating well and states his appetite is good. Per nursing, patient voided 5cc per urinal during the night and had two episodes of incontinence. Urine output continues to be decreased despite of aggressive IV hydration and administration of albumin yesterday. Case discussed with Dr. Lauren, who recommends holding off on further administration of albumin. Also recommends not christie catheter at this time due to patient being restless at times and high risk for patient pulling it out. Patient may transfer out of the ICU to medical floor per Dr. Lauren. 12/27/2017-12/28/2017-Notes per Dr. Childress 12/29/2017 Patient seen and examined at the bedside on rounds with Dr. Childress. Patient is more awake and alert today, however he does remain confused at times. Mother is at the bedside. Mother currently seeking guardianship of patient. Hearing scheduled for 12/30/2017 at 1130. Patient states his abdominal pain has resolved. Patient had a couple very large bowel movements. Abdominal distention is improving. Patient was started on Lactulose BID. Patient states he is hungry this morning. PT/OT are on consult but have no worked with patient since 2017. Discharge planning is in progress. Objective - Vital Signs Vital signs: Vital Signs Temp 98.8 F 12/29/17 07:00 Pulse 126 H 12/29/17 07:00 Resp 18 12/29/17 07:00 BP 111/71 12/29/17 07:00 Pulse Ox 95 12/29/17 07:00 Intake & Output 12/28/17 12/29/17 12/29/17 18:59 06:59 18:59 Intake Total 240 225 Output Total 275 78 Balance -35 147 Intake: Intake, IV Titration 225 Amount Sodium Chloride 0.9% 1, 225 000 ml @ 75 mls/hr IV . Q13S10U [facility] Rx#:[id number] Oral 240 Output: Urine 275 78 Other: Voiding Method Urinal Urinal # Voids 0 1 # Bowel Movements 0 3 - Exam GENERAL: This is a 37-year-old male in no apparent distress at the time of examination. Emaciated. Appears very thin and frail. HEENT: Head is atraumatic, normocephalic. Pupils are equal, round, and reactive to light. Face very thin with sunken eyes. Conjunctivae are clear. Mucus membranes of the mouth are moist. Neck is supple. RESPIRATORY: Clear to ausculation. No wheezes, rales, or rhonchi. No use of accessory muscles. Patient maintaining oxygen saturation greater than 92%. No chest wall tenderness is noted on palpation or with deep breathing. CARDIOVASCULAR: Regular rate and rhythm. S1 and S2 noted. No systolic or diastolic murmur auscultated. No JVD noted. No S3 or S4 noted. GASTROINTESTINAL: Mildly distended with some ascites, improving. Abdomen soft and round. Bowel sounds auscultated x 4 quadrants. No pain or tenderness noted upon palpation. INTEGUMENTARY: No cyanosis. No jaundice. No rashes noted. No cellulitis noted. EXTREMITIES: Muscle wasting present. 2+ peripheral pulses. No evidence of peripheral edema. No calf tenderness noted. NEUROLOGIC: Cranial nerves II-XII intact. Speech normal. Short term memory loss present. Decreased muscle strength and tone to all extremities. PSYCHIATRIC: Awake, alert, and oriented X 2. Cooperative during examination. - Labs CBC & Chem 7: 12/29/17 08:07 12/29/17 08:07 Labs: Abnormal Lab Results - Last 24 Hours (Table) 12/29/17 12/29/17 Range/Units 08:07 08:07 RBC 2.68 L (4.30-5.90) m/uL Hgb 10.0 L (13.0-17.5) gm/dL Hct 31.9 L (39.0-53.0) % MCV 118.8 H (80.0-100.0) fL MCH 37.2 H (25.0-35.0) pg RDW 15.6 H (11.5-15.5) % Chloride 108 H (98-107) mmol/L Creatinine 0.34 L (0.66-1.25) mg/dL Glucose 105 H (74-99) mg/dL Phosphorus 4.8 H (2.5-4.5) mg/dL AST 99 H (17-59) U/L Total Protein 4.6 L (6.3-8.2) g/dL Albumin 2.2 L (3.5-5.0) g/dL Assessment and Plan Plan: ASSESSMENT: Alcoholism, pt drinks fifth of whiskey daily Alcohol withdrawal Severe protein calorie malnutrition, BMI 15.4 on admission Alcoholic encephalopathy Short term memory loss with possible Wernicke's encephalopathy Severe debility and inability to ambulate History of endocarditis secondary to dental procedure per patient Nicotine dependence, patient is a current cigarette smoker, 1 PPD Hypokalemia, improved with supplementation PLAN: Neurology on consult. Appreciate recommendations and input Continue folic acid, thiamine, and daily multivitamin Continue lactulose 30 gram PO BID Add colace 100mg daily per Dr. Childress Continue Lidoderm patchs x 2 daily to patients lower back Encourage smoking cessation. Continue Nicotine patch Encourage abstinence from ETOH Monitor labs GI prophylaxis: Protonix 40 mg PO Daily DVT prophylaxis: SCDs to bilateral lower extremities Monitor vital signs and address as appropriate Further recommendations pending patient's course PT/OT Mother is in the process of obtaining guardianship. Hearing scheduled for tomorrow Patient may be discharged tomorrow or friday to [facility] if he remains stable Nurse practitioner note has been reviewed by physician. Signing provider agrees with the documented findings, assessment, and plan of care.
[2017-12-29] MEDS: DOCUSATE 100 MG CAP PO SCH (10:37)
[2017-12-29 11:31] VITALS: BMI 18.8
[2017-12-29 14:07] LABS: HIV-1 RNA Not detected (Not detected); HIV-1 RNA, Quant <40 Copies/mL (<40)
--- NOTE | 2017-12-29 19:02 | P.PN ---
Subjective Progress Note Date: 12/28/17 (Late entry note) Principal diagnosis: Mental status and metabolic encephalopathy related to chronic alcoholism, DTs and impending alcohol withdrawal, protein calorie malnourishment, developing dementia and cognitive impairment, generalized weakness and medical debility 12/28/2017, patient seen eval examined during the rounds clinically slightly better able to swallow food with some support nutritional support is being optimized no evidence of the withdrawal or DTs at this point of time patient is being monitored for ileus has been on lactulose 12/27/2017, patient seen eval examined during the rounds patient has just received the Ativan dose he sleeping right now care plan discussed with the nursing staff at length he underwent a chest x-ray and abdominal x-ray results and report of those studies reviewed patient has been constipated but however. Voiding urine very well, chest x-ray revealed subsegmental atelectasis, abdominal x-ray nonspecific picture may be ileus however significant amount of stool on the right side has been seen patient is being started on lactulose once daily 12/26/2017, patient seen eval examined during the rounds he is more awake and alert he is shaky but able to eat by himself patient has some issues associated with sleeping down the bed and fall are 24-hour sitter is sitting in bedside with the patient patient has been incontinent and he has been noted to not be able to control the urine. Patient is at high risk of putting Pollard's catheter giving that likelihood of pulling it off patient will need a sitter as well care plan discussed with the primary service at length, noted laboratory data for HIV testing they're negative so as the hepatitis panel, patient appears to have developed end of severe alcohol-related dementia which appears to be early onset likely encephalopathy and severe degree of protein calorie malnourishment a significant psychiatric component appears to be present for further psychiatric evaluation to primary service 37-year-old male who was seen eval reexamined in the ICU patient presented into the hospital with request from primary care provider to be evaluated for a call withdrawal syndrome, 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 Over the period of time patient has been developing significant memory loss as well cachexia and poor nutrition and progressive weight loss, review of the data revealed that patient spoke to his mother who lived in [place] she arrived in patient subsequently evaluate by primary care provider, last drink was on 2017. 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 Overnight patient has been extremely anxious and stated he has very low urine output in spite of aggressive fluid resuscitation, patient has been on IV fluid 1 50 mL an hour no urine output has been noted on bladder scan some ascites has been noted straight cath has been unsuccessful in evacuating urine urology has been consulted, patient has been on Cipro protocol very anxious and agitated he has pulled his Pollard's catheter once he is a high risk in that regard as well, patient did receive to the Ativan as per Cipro protocol during evaluation he is nonverbal and noncommunicative sounds sleeping at agitated with stable hemodynamics except mild tachycardia he able to maintain his airway Objective - Vital Signs Vital signs: Vital Signs Temp 99.6 F 12/29/17 15:00 Pulse 110 H 12/29/17 15:00 Resp 18 12/29/17 15:00 BP 105/67 12/29/17 15:00 Pulse Ox 97 12/29/17 15:00 Intake & Output 12/28/17 12/29/17 12/29/17 18:59 06:59 18:59 Intake Total 240 225 600 Output Total 275 78 Balance -35 147 600 Weight 72.3 kg Intake: Intake, IV Titration 225 Amount Sodium Chloride 0.9% 1, 225 000 ml @ 75 mls/hr IV . [id number] [facility] Rx#:[id number] Oral 240 600 Output: Urine 275 78 Other: Voiding Method Urinal Urinal # Voids 0 1 2 # Bowel Movements 0 3 3 - Exam General appearance: Sedated with Ativan as per protocol in no apparent distress very emaciated cachectic Head exam: Present: atraumatic, normocephalic Eye exam: Present: normal appearance, PERRL, EOMI ENT exam: Present: normal oropharynx, mucous membranes moist, normal external ear exam Neck exam: Present: normal inspection. Absent: tenderness, meningismus Respiratory exam: Present: normal lung sounds bilaterally. Absent: respiratory distress, wheezes, rales Cardiovascular Exam: Present: normal rhythm, tachycardia GI/Abdominal exam: Present: soft. distended, active bowel sounds, no evidence of tenderness, guarding, rebound, rigid Extremities exam: Present: normal inspection, normal capillary refill. Absent: pedal edema Neurological exam: Patient is alert, oriented X3, CN II-XII intact, intentional tremors present, patient appears calm, conversing normally. Alert and oriented 3. GCS 15.) Skin exam: Present: warm, dry, intact, normal color. Absent: rash - Labs CBC & Chem 7: 12/29/17 08:07 12/29/17 08:07 Labs: Abnormal Lab Results - Last 24 Hours (Table) 12/29/17 12/29/17 Range/Units 08:07 08:07 RBC 2.68 L (4.30-5.90) m/uL Hgb 10.0 L (13.0-17.5) gm/dL Hct 31.9 L (39.0-53.0) % MCV 118.8 H (80.0-100.0) fL MCH 37.2 H (25.0-35.0) pg RDW 15.6 H (11.5-15.5) % Chloride 108 H (98-107) mmol/L Creatinine 0.34 L (0.66-1.25) mg/dL Glucose 105 H (74-99) mg/dL Phosphorus 4.8 H (2.5-4.5) mg/dL AST 99 H (17-59) U/L Total Protein 4.6 L (6.3-8.2) g/dL Albumin 2.2 L (3.5-5.0) g/dL Assessment and Plan Assessment: Alcohol withdrawal and impending DTs overall seems to be settling down in stable Ileus likely related to chronic constipation Severe degree of protein calorie malnourishment Encephalopathy likely metabolic and alcohol-related Low urine out put Anuria, patient appears to be incontinent as has been aggressively rehydrated now patient is voiding very well Developing 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 and malnourishment Generalized weakness medical debility short-term memory loss related to above History of smoking and nicotine use History of endocarditis in the remote past Plan: Gentle rehydration Trial of lactulose CIWA protocol Thiamine and folic acid and MVI Close monitoring on medical floor for falls as well as for impending DTs Anuria/low urine output will be monitored observe lately patient has been voiding very well DVT and peptic ulcer disease prophylaxis Seizure precautions Withdrawal precautions Further recommendations pending plan of care as per clinical response of the patient Continue sitter 24 7 sitter Patient will benefit from psychiatric evaluation and possibly a trial of antidepressant, will defer to primary service Time with Patient: Greater than 30
--- NOTE | 2017-12-29 19:04 | P.PN ---
Subjective Progress Note Date: 12/29/17 Principal diagnosis: Mental status and metabolic encephalopathy related to chronic alcoholism, DTs and impending alcohol withdrawal, protein calorie malnourishment, developing dementia and cognitive impairment, generalized weakness and medical debility, ileus likely related to chronic constipation 12/29/2017, patient seen eval examined during the rounds the he is sitting upright on the bed eating his lunch mother is present at bedside patient has a significant and multiple bowel movement yesterday and he is feeling much better , does have significant shakiness due to alcoholism and alcohol-related issues but however no significant evidence of withdrawal or DT has been noted so far 12/28/2017, patient seen eval examined during the rounds clinically slightly better able to swallow food with some support nutritional support is being optimized no evidence of the withdrawal or DTs at this point of time patient is being monitored for ileus has been on lactulose 12/27/2017, patient seen eval examined during the rounds patient has just received the Ativan dose he sleeping right now care plan discussed with the nursing staff at length he underwent a chest x-ray and abdominal x-ray results and report of those studies reviewed patient has been constipated but however. Voiding urine very well, chest x-ray revealed subsegmental atelectasis, abdominal x-ray nonspecific picture may be ileus however significant amount of stool on the right side has been seen patient is being started on lactulose once daily 12/26/2017, patient seen eval examined during the rounds he is more awake and alert he is shaky but able to eat by himself patient has some issues associated with sleeping down the bed and fall are 24-hour sitter is sitting in bedside with the patient patient has been incontinent and he has been noted to not be able to control the urine. Patient is at high risk of putting Pollard's catheter giving that likelihood of pulling it off patient will need a sitter as well care plan discussed with the primary service at length, noted laboratory data for HIV testing they're negative so as the hepatitis panel, patient appears to have developed end of severe alcohol-related dementia which appears to be early onset likely encephalopathy and severe degree of protein calorie malnourishment a significant psychiatric component appears to be present for further psychiatric evaluation to primary service 37-year-old male who was seen eval reexamined in the ICU patient presented into the hospital with request from primary care provider to be evaluated for a call withdrawal syndrome, 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 Over the period of time patient has been developing significant memory loss as well cachexia and poor nutrition and progressive weight loss, review of the data revealed that patient spoke to his mother who lived in [place] she arrived in patient subsequently evaluate by primary care provider, last drink was on 2017. 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 Overnight patient has been extremely anxious and stated he has very low urine output in spite of aggressive fluid resuscitation, patient has been on IV fluid 1 50 mL an hour no urine output has been noted on bladder scan some ascites has been noted straight cath has been unsuccessful in evacuating urine urology has been consulted, patient has been on Cipro protocol very anxious and agitated he has pulled his Pollard's catheter once he is a high risk in that regard as well, patient did receive to the Ativan as per Cipro protocol during evaluation he is nonverbal and noncommunicative sounds sleeping at agitated with stable hemodynamics except mild tachycardia he able to maintain his airway Objective - Vital Signs Vital signs: Vital Signs Temp 99.6 F 12/29/17 15:00 Pulse 110 H 12/29/17 15:00 Resp 18 12/29/17 15:00 BP 105/67 12/29/17 15:00 Pulse Ox 97 12/29/17 15:00 Intake & Output 12/29/17 12/29/17 12/30/17 06:59 18:59 06:59 Intake Total 225 600 Output Total 78 Balance 147 600 Weight 72.3 kg Intake: Intake, IV Titration 225 Amount Sodium Chloride 0.9% 1, 225 000 ml @ 75 mls/hr IV . [id number] [facility] Rx#:[id number] Oral 600 Output: Urine 78 Other: Voiding Method Urinal # Voids 1 2 # Bowel Movements 3 3 - Exam General appearance: Sedated with Ativan as per protocol in no apparent distress very emaciated cachectic Head exam: Present: atraumatic, normocephalic Eye exam: Present: normal appearance, PERRL, EOMI ENT exam: Present: normal oropharynx, mucous membranes moist, normal external ear exam Neck exam: Present: normal inspection. Absent: tenderness, meningismus Respiratory exam: Present: normal lung sounds bilaterally. Absent: respiratory distress, wheezes, rales Cardiovascular Exam: Present: normal rhythm, tachycardia GI/Abdominal exam: Present: soft. distended, active bowel sounds, no evidence of tenderness, guarding, rebound, rigid Extremities exam: Present: normal inspection, normal capillary refill. Absent: pedal edema Neurological exam: Patient is alert, oriented X3, CN II-XII intact, intentional tremors present, patient appears calm, conversing normally. Alert and oriented 3. GCS 15.) Skin exam: Present: warm, dry, intact, normal color. Absent: rash - Labs CBC & Chem 7: 12/29/17 08:07 12/29/17 08:07 Labs: Abnormal Lab Results - Last 24 Hours (Table) 12/29/17 12/29/17 Range/Units 08:07 08:07 RBC 2.68 L (4.30-5.90) m/uL Hgb 10.0 L (13.0-17.5) gm/dL Hct 31.9 L (39.0-53.0) % MCV 118.8 H (80.0-100.0) fL MCH 37.2 H (25.0-35.0) pg RDW 15.6 H (11.5-15.5) % Chloride 108 H (98-107) mmol/L Creatinine 0.34 L (0.66-1.25) mg/dL Glucose 105 H (74-99) mg/dL Phosphorus 4.8 H (2.5-4.5) mg/dL AST 99 H (17-59) U/L Total Protein 4.6 L (6.3-8.2) g/dL Albumin 2.2 L (3.5-5.0) g/dL Assessment and Plan Assessment: Alcohol withdrawal and impending DTs overall seems to be settling down in stable Ileus likely related to chronic constipation Severe degree of protein calorie malnourishment Encephalopathy likely metabolic and alcohol-related Low urine out put Anuria, patient appears to be incontinent as has been aggressively rehydrated now patient is voiding very well Developing 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 and malnourishment Generalized weakness medical debility short-term memory loss related to above History of smoking and nicotine use History of endocarditis in the remote past Plan: Gentle rehydration Trial of lactulose [facility] protocol Thiamine and folic acid and MVI Close monitoring on medical floor for falls as well as for impending DTs Anuria/low urine output will be monitored observe lately patient has been voiding very well DVT and peptic ulcer disease prophylaxis Seizure precautions Withdrawal precautions Further recommendations pending plan of care as per clinical response of the patient Continue sitter 24 7 sitter Patient will benefit from psychiatric evaluation and possibly a trial of antidepressant, will defer to primary service Time with Patient: Greater than 30
[2017-12-29] MEDS: LORazepam 1 MG TAB PO PRN (21:52)
--- NOTE | 2017-12-29 22:35 | P.PN ---
Subjective Progress Note Date: 12/29/17 This patient is a 37-year-old right-handed white male who was seen in neurology consultation yesterday for evaluation of alcohol withdrawal syndrome and confusion. Patient had been drinking a fifth of alcohol daily for the past 6 months. He was not eating properly at home and has had significant malnutrition. He was advised admission to the hospital yesterday for further evaluation. She was sent for a computed tomography scan of the brain yesterday which revealed no acute intracranial abnormality. No evidence of hemorrhage, mass effect, midline shift. Patient was started on a CIWA protocol yesterday. Apparently his condition worsen today as CIWA scale indicated worsening symptoms of alcohol withdrawal and impending delirium tremens. He was transferred to the intensive care unit this evening for further close monitoring. Apparently on the medical floor his CIWA scale was 18. After transfer to the intensive care unit his repeat CIWA scale is 10.0. Patient was seen in consultation with psychiatry today for alcohol use disorder and severe alcohol withdrawal. They're recommending alcohol rehab treatment for the patient as well as AA program. They are recommending inpatient alcohol rehab when he is physically able. Patient is resting comfortably. We did review the results of his CAT scan of the brain today with him. There was no evidence of any acute stroke or hemorrhage. He is scheduled to have an EEG done for further assessment of his memory loss. EEG was completed today and was reviewed. His EEG is normal for his age. No evidence of any epileptiform discharges. Patient should be closely monitored for Wernicke's encephalopathy. We will check his vitamin B12 level as well. Patient was transferred out of the intensive care unit to the medical floor. He continues to do well other than complaining of increasing abdominal pain. Patient did have several bowel movements today which is helped with some of the abdominal distention and pain. He is currently on lactulose twice a day. He is being treated for his malnutrition as well. He does show slight improvement in his mental status today as well. We will continue close neurological follow-up with the patient during this admission. Objective - Vital Signs Vital signs: Vital Signs Temp 99.6 F 12/29/17 15:00 Pulse 110 H 12/29/17 15:00 Resp 18 12/29/17 15:00 BP 105/67 12/29/17 15:00 Pulse Ox 97 12/29/17 15:00 Intake & Output 12/29/17 12/29/17 12/30/17 06:59 18:59 06:59 Intake Total 225 600 Output Total 78 Balance 147 600 Weight 72.3 kg Intake: Intake, IV Titration 225 Amount Sodium Chloride 0.9% 1, 225 000 ml @ 75 mls/hr IV . [id number] [facility] Rx#:[id number] Oral 600 Output: Urine 78 Other: Voiding Method Urinal # Voids 1 2 # Bowel Movements 3 3 - Exam Physical examination: PHYSICAL EXAMINATION: Patient is resting comfortably in bed. VITAL SIGNS: Blood pressure is [105/67]. Heart rate is [110]. Respiration is [18 ]. Temperature is [99.6]. HEENT: Head is atraumatic, neck is supple, there were no carotid bruits. CHEST: Lungs are clear to auscultation and percussion. CARDIAC: S1, S2 normal rate and rhythm. There is no murmur. ABDOMEN: Abdomen is distended. It is painful to touch. Distention is quite noticeable bilaterally. EXTREMITIES: There is no pedal edema. Peripheral pulses are present. Neurological examination: Patient has a nonfocal neurological examination today. Patient is slightly more awake and alert today. - Labs CBC & Chem 7: 12/29/17 08:07 12/29/17 08:07 Labs: Abnormal Lab Results - Last 24 Hours (Table) 12/29/17 12/29/17 Range/Units 08:07 08:07 RBC 2.68 L (4.30-5.90) m/uL Hgb 10.0 L (13.0-17.5) gm/dL Hct 31.9 L (39.0-53.0) % MCV 118.8 H (80.0-100.0) fL MCH 37.2 H (25.0-35.0) pg RDW 15.6 H (11.5-15.5) % Chloride 108 H (98-107) mmol/L Creatinine 0.34 L (0.66-1.25) mg/dL Glucose 105 H (74-99) mg/dL Phosphorus 4.8 H (2.5-4.5) mg/dL AST 99 H (17-59) U/L Total Protein 4.6 L (6.3-8.2) g/dL Albumin 2.2 L (3.5-5.0) g/dL Assessment and Plan (1) Encephalopathy Current Visit: Yes Status: Acute Code(s): G93.40 - ENCEPHALOPATHY, UNSPECIFIED SNOMED Code(s): 03491276 (2) Malnutrition Current Visit: Yes Status: Acute Code(s): E46 - UNSPECIFIED PROTEIN-CALORIE MALNUTRITION SNOMED Code(s): 17560544 (3) Withdrawal symptoms, alcohol Current Visit: Yes Status: Acute Code(s): F10.239 - ALCOHOL DEPENDENCE WITH WITHDRAWAL, UNSPECIFIED SNOMED Code(s): 709470667 Plan: This patient is a 37-year-old male who was admitted to hospital for alcohol withdrawal syndrome. He also has history of significant protein calorie malnutrition syndrome. He has had difficulty with his memory which is felt to be secondary to his alcohol use. He has a history of drinking a fifth of whiskey daily prior to his admission. Patient did complain of abdominal pain and distention. This seems to show improvement today and he feels the pain symptoms have improved in terms of his abdomen. Patient's mother and 7 the process of obtaining guardianship for the patient. He is being considered for possible discharge to extended care facility in the next few days. His overall prognosis at this time remains guarded.
[2017-12-30] MEDS: LACTULOSE 20 GM/30 ML CUP PO SCH ×2 (07:22→20:15)
[2017-12-30] MEDS: DOCUSATE 100 MG CAP PO SCH (07:22)
[2017-12-30] MEDS: SUCRALFATE 1 GM TAB PO SCH ×4 (07:59→20:14)
[2017-12-30] MEDS: THIAMINE 100 MG TAB PO SCH ×2 (07:59→17:04)
[2017-12-30] MEDS: FOLIC ACID 1 MG TAB PO SCH (07:59)
[2017-12-30] MEDS: PANTOPRAZOLE 40 MG TABLET PO SCH (07:59)
[2017-12-30] MEDS: MULTIVITAMINS, THERA 1 EACH TAB PO SCH (07:59)
[2017-12-30] MEDS: NICOTINE 21MG/24HR PATCH TRANSDERM SCH (07:59)
[2017-12-30] MEDS: SPIRONOLACTONE 25 MG TAB PO SCH (07:59)
[2017-12-30] MEDS: LIDOCAINE 5% PATCH TOPICAL SCH (07:59)
[2017-12-30] MEDS: SODIUM CHLORIDE 0.9% 1,000 ML IV SCH ×2 (08:00→21:00)
[2017-12-30] MEDS ORDERED: RX INFO: IV CONTRAST WAS GIVEN 1 EACH MISC MISCELLANE PRN (08:01)
[2017-12-30] MEDS: HYDROCORTISONE SUPPOSITORY 25 MG SUPP RECTAL SCH ×2 (09:03→20:14)
[2017-12-30 09:36] LABS: Basophils % (A) 0 %; Eosinophils # (A) 0.2 k/uL (0-0.7); Eosinophils % (A) 2 %; HCT 33.7 % (39.0-53.0); HGB 10.4 gm/dL (13.0-17.5); Hypochromasia Moderate; Lymphocytes # (A) 1.2 k/uL (1.0-4.8); Lymphocytes % (A) 15 %; MCH 36.8 pg (25.0-35.0); MCV 118.6 fL (80.0-100.0); Macrocytosis Marked; Mean Platelet Volume 8.3; Monocytes # (A) 0.7 k/uL (0-1.0); Monocytes % (A) 9 %; Neutrophils # (A) 5.6 k/uL (1.3-7.7); Neutrophils % (A) 72 %; Platelet Count 285 k/uL (150-450); RBC 2.84 m/uL (4.30-5.90); RDW 15.5 % (11.5-15.5); WBC 7.8 k/uL (3.8-10.6)
--- NOTE | 2017-12-30 09:37 | P.PN ---
Subjective Progress Note Date: 12/30/17 37-year-old male who was evaluated by Dr. Childress on an outpatient basis for weakness, malnutrition, and alcoholism on 12/23/2017. Due to the severity of this, Dr. Childress recommended the patient come to the emergency room for further evaluation. The patient has a history of alcoholism and drinks a fifth per day. The patient's mother lives in [place] but apparently they speak weekly via phone. During their last phone conversation, the mother reports that she could tell he was not doing well and she drove to [place]. She found the patient to be extremely weak and unable to stand or ambulate. Additionally, he was very confused. The mother does report chronic short term memory loss. Last reported drink was on Friday12/22/2017. The patient has a history of endocarditis which he states is secondary to dental work in 1996. Patient denies drug usage. Patient does report smoking 1 pack of cigarettes daily. 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 Patient states he used to wear a lumbar support brace but no longer does. 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 The patient has been living off his savings from his business. EKG: Sinus tachycardia. No ST elevation or depression noted. Laboratory data: WBC 12.1. Hemoglobin 11.2. Platelet count 350. PT 10.5. INR 1.1. PTT 23.8. Sodium 133. Potassium 2.8. BUN 4. Creatinine 0.54. Glucose 122. Magnesium 1.7. AST 214. ALT 79. Alkaline phosphatase 223. Total bilirubin 0.8. Total protein 5.9. Albumin 3.0. Lipase 218. Serum alcohol less than 10 Urinalysis is positive for trace proteinuria but otherwise negative. Toxicology is positive for benzodiazepine but otherwise negative. The patient did receive ativan IV. The patient was admitted to the hospital under the care of Dr. Childress. 12/25/2017 Patient seen and evaluated on rounds with Dr. Childress. Patient was transferred to ICU yesterday for closer monitoring secondary to increased CIWA scores. Patient is lethargic but arousable to verbal stimuli. Patient remains on CIWA protocol and also Ativan 1mg q 4 hours scheduled. Nursing reports that patient was cooperative most of the night. Patient has only voided 150cc during the night and was via straight cath. Bladder scan revealed 200-300cc but inaccurate due to patient ascites. Patient was tachycardic yesterday with a rate in the 130s. Rate was improved to 90-110s. Possibility of TPN was discussed yesterday with dietary. Decision was made to give patient 6 small meals daily at this time. Patients mother is at the bedside. Updated on patient condition and plan of care. 12/26/2017 Patient seen and evaluated on rounds with Dr. Childress in the ICU. Patients mother is at the beside. Patient is awake and alert this morning. Cooperative. He complains of mild lower back pain. Mother reports patient was a little restless through the night and believes it is related to his back pain. Patient has been eating well and states his appetite is good. Per nursing, patient voided 5cc per urinal during the night and had two episodes of incontinence. Urine output continues to be decreased despite of aggressive IV hydration and administration of albumin yesterday. Case discussed with Dr. Lauren, who recommends holding off on further administration of albumin. Also recommends not christie catheter at this time due to patient being restless at times and high risk for patient pulling it out. Patient may transfer out of the ICU to medical floor per Dr. Lauren. 12/27/2017-12/28/2017-Notes per Dr. Childress 12/29/2017 Patient seen and examined at the bedside on rounds with Dr. Childress. Patient is more awake and alert today, however he does remain confused at times. Mother is at the bedside. Mother currently seeking guardianship of patient. Hearing scheduled for 12/30/2017 at 1130. Patient states his abdominal pain has resolved. Patient had a couple very large bowel movements. Abdominal distention is improving. Patient was started on Lactulose BID. Patient states he is hungry this morning. PT/OT are on consult but have no worked with patient since 2017. Discharge planning is in progress. 12/30/2017 Patient seen and examined at the bedside on rounds with Dr. Childress. Patient is awake and alert. Speech remains clear. Patient able to communicate well with provider. Remains confused at times. Patient continues to have some abdominal pain. Per nursing, patient has been having loose stools. Appetite remains good. [facility]charge planning [facility]. Objective - Vital Signs Vital signs: Vital Signs Temp 97.9 F 12/30/17 07:00 Pulse 110 H 12/30/17 07:00 Resp 22 12/30/17 07:00 BP 122/75 12/30/17 07:00 Pulse Ox 93 L 12/30/17 07:00 Intake & Output 12/29/17 12/30/17 12/30/17 18:59 06:59 18:59 Intake Total 600 600 Output Total 3 Balance 600 597 Weight 72.3 kg Intake: Intake, IV Titration 600 Amount Sodium Chloride 0.9% 1, 600 000 ml @ 75 mls/hr IV . [id number] [facility] Rx#:[id number] Oral 600 Output: Stool 3 Other: Voiding Method Urinal # Voids 2 2 # Bowel Movements 3 1 - Exam GENERAL: This is a 37-year-old male in no apparent distress at the time of examination. Emaciated. Appears very thin and frail. HEENT: Head is atraumatic, normocephalic. Pupils are equal, round, and reactive to light. Face very thin with sunken eyes. Conjunctivae are clear. Mucus membranes of the mouth are moist. Neck is supple. RESPIRATORY: Clear to ausculation. No wheezes, rales, or rhonchi. No use of accessory muscles. Patient maintaining oxygen saturation greater than 92%. No chest wall tenderness is noted on palpation or with deep breathing. CARDIOVASCULAR: Regular rate and rhythm. S1 and S2 noted. No systolic or diastolic murmur auscultated. No JVD noted. No S3 or S4 noted. GASTROINTESTINAL: Mildly distended with some ascites, improving. Abdominal striae present. Abdomen soft and round. Bowel sounds auscultated x 4 quadrants. RECTAL: Large non-thrombosed external hemorrhoid connected to an internal hemorrhoid. INTEGUMENTARY: No cyanosis. No jaundice. No rashes noted. No cellulitis noted. EXTREMITIES: Muscle wasting present. 2+ peripheral pulses. No evidence of peripheral edema. No calf tenderness noted. NEUROLOGIC: Cranial nerves II-XII intact. Speech normal. Short term memory loss present. Decreased muscle strength and tone to all extremities. PSYCHIATRIC: Awake, alert, and oriented X 2. Cooperative during examination. - Labs CBC & Chem 7: 12/29/17 08:07 12/29/17 08:07 Labs: Abnormal Lab Results - Last 24 Hours (Table) 12/29/17 Range/Units 08:07 Chloride 108 H (98-107) mmol/L Creatinine 0.34 L (0.66-1.25) mg/dL Glucose 105 H (74-99) mg/dL Phosphorus 4.8 H (2.5-4.5) mg/dL AST 99 H (17-59) U/L Total Protein 4.6 L (6.3-8.2) g/dL Albumin 2.2 L (3.5-5.0) g/dL Assessment and Plan Plan: ASSESSMENT: Alcoholism, pt drinks fifth of whiskey daily Alcohol withdrawal Severe protein calorie malnutrition, BMI 15.4 on admission Alcoholic encephalopathy Short term memory loss with possible Wernicke's encephalopathy Severe debility and inability to ambulate History of endocarditis secondary to dental procedure per patient Nicotine dependence, patient is a current cigarette smoker, 1 PPD Hypokalemia, improved with supplementation Large non-thrombosed external hemorrhoid PLAN: Neurology on consult. Appreciate recommendations and input Continue folic acid, thiamine, and daily multivitamin Continue lactulose and colace Anusol rectal BID for hemorrhoids CT abdomen and pelvis with IV and oral contrast Continue Lidoderm patchs x 2 daily to patients lower back Encourage smoking cessation. Continue Nicotine patch Encourage abstinence from ETOH Monitor labs GI prophylaxis: Protonix 40 mg PO Daily DVT prophylaxis: SCDs to bilateral lower extremities Monitor vital signs and address as appropriate Further recommendations pending patient's course PT/OT Mother is in the process of obtaining guardianship. Hearing scheduled for today Anticipate discharge to [facility] tomorrow if patient remains stable Nurse practitioner note has been reviewed by physician. Signing provider agrees with the documented findings, assessment, and plan of care.
[2017-12-30 09:59] LABS: ALT 43 U/L (21-72); AST 89 U/L (17-59); Albumin 2.3 g/dL (3.5-5.0); Alkaline Phosphatase 151 U/L (38-126); Anion Gap 10 mmol/L; Blood Urea Nitrogen 12 mg/dL (9-20); Calcium 8.7 mg/dL (8.4-10.2); Carbon Dioxide 24 mmol/L (22-30); Chloride 108 mmol/L (98-107); Glucose 119 mg/dL (74-99); Magnesium 1.6 mg/dL (1.6-2.3); Phosphorus 4.2 mg/dL (2.5-4.5); Potassium 3.7 mmol/L (3.5-5.1); Sodium 142 mmol/L (137-145); Total Bilirubin 0.4 mg/dL (0.2-1.3); Total Protein 4.9 g/dL (6.3-8.2)
--- NOTE | 2017-12-30 10:04 | CDI ---
Last Revision, August 2017 Documentation Clarification Form Date: December 30, 2017 From: Rhina Moura RN Admit Date: 12/24/2017 11:35:00 AM Patient Name: Jeff Booker Visit Number: [id number] ATTENTION: The Clinical Documentation Specialists (CDI) and [facility] Coding Staff appreciate your assistance in clarifying documentation. Please respond to the clarification below the line at the bottom and electronically sign. The CDI & [facility] Coding staff will review the response and follow-up if needed. Please note: Queries are made part of the Legal Health Record. If you have any questions, please contact the author of this message via ITS. Dr. Jacob Childress, History/Risk Factors: gerd, gi bleed, memory impairment, endocarditis, murmur, gi bleed, smoker, ETOH Presented with weakness, malnutrition and alcoholism Patients baseline on admission BUN/CR/GFR: Clinical Indicators: Current BUN/Cr/GFR : 4/0.54/>90 4/6 PN states "urine output continues to be decreased" Appears emaciated Treatment: IVF: .9 @ 75cc/hr monitor vitals In order to capture the severity of condition, please clarify if the condition signifies: Acute renal failure, Please specify etiology (if known): Acute on chronic renal failure Chronic renal failure CKD Stage 1 GFR >90 CKD Stage 5 GFR <15 Other, please specify Unable to determine Please continue to document in your progress notes, under the line below and/ or in the discharge summary in order to capture severity of illness and risk of mortality. Include clinical findings that support your diagnosis. Patient does not have acute renal failure or chronic renal failure MTDD
[2017-12-30] MEDS: IOPAMIDOL-300 CONTRAST 30 ML VIAL (ORAL USE) PO PRN ×2 (10:48→12:09)
--- NOTE | 2017-12-30 13:24 | P.PN ---
Subjective Progress Note Date: 12/30/17 Principal diagnosis: Mental status and metabolic encephalopathy related to chronic alcoholism, DTs and impending alcohol withdrawal, protein calorie malnourishment, developing dementia and cognitive impairment, generalized weakness and medical debility, ileus likely related to chronic constipation 12/30/2017, patient seen eval examined during the rounds of intermittent loose stools have been present, patient on lactulose, primary services recommended a computed tomography scan of the abdominal pelvis which is pending overall patient has been tolerating by mouth well his coordination and communication the scale and orientation continued to improve slowly 12/29/2017, patient seen eval examined during the rounds the he is sitting upright on the bed eating his lunch mother is present at bedside patient has a significant and multiple bowel movement yesterday and he is feeling much better , does have significant shakiness due to alcoholism and alcohol-related issues but however no significant evidence of withdrawal or DT has been noted so far 12/28/2017, patient seen eval examined during the rounds clinically slightly better able to swallow food with some support nutritional support is being optimized no evidence of the withdrawal or DTs at this point of time patient is being monitored for ileus has been on lactulose 12/27/2017, patient seen eval examined during the rounds patient has just received the Ativan dose he sleeping right now care plan discussed with the nursing staff at length he underwent a chest x-ray and abdominal x-ray results and report of those studies reviewed patient has been constipated but however. Voiding urine very well, chest x-ray revealed subsegmental atelectasis, abdominal x-ray nonspecific picture may be ileus however significant amount of stool on the right side has been seen patient is being started on lactulose once daily 12/26/2017, patient seen eval examined during the rounds he is more awake and alert he is shaky but able to eat by himself patient has some issues associated with sleeping down the bed and fall are 24-hour sitter is sitting in bedside with the patient patient has been incontinent and he has been noted to not be able to control the urine. Patient is at high risk of putting Pollard's catheter giving that likelihood of pulling it off patient will need a sitter as well care plan discussed with the primary service at length, noted laboratory data for HIV testing they're negative so as the hepatitis panel, patient appears to have developed end of severe alcohol-related dementia which appears to be early onset likely encephalopathy and severe degree of protein calorie malnourishment a significant psychiatric component appears to be present for further psychiatric evaluation to primary service 37-year-old male who was seen eval reexamined in the ICU patient presented into the hospital with request from primary care provider to be evaluated for a call withdrawal syndrome, 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 Over the period of time patient has been developing significant memory loss as well cachexia and poor nutrition and progressive weight loss, review of the data revealed that patient spoke to his mother who lived in [place] she arrived in patient subsequently evaluate by primary care provider, last drink was on 2017. 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 Overnight patient has been extremely anxious and stated he has very low urine output in spite of aggressive fluid resuscitation, patient has been on IV fluid 1 50 mL an hour no urine output has been noted on bladder scan some ascites has been noted straight cath has been unsuccessful in evacuating urine urology has been consulted, patient has been on Cipro protocol very anxious and agitated he has pulled his Pollard's catheter once he is a high risk in that regard as well, patient did receive to the Ativan as per Cipro protocol during evaluation he is nonverbal and noncommunicative sounds sleeping at agitated with stable hemodynamics except mild tachycardia he able to maintain his airway Objective - Vital Signs Vital signs: Vital Signs Temp 97.9 F 12/30/17 07:00 Pulse 110 H 12/30/17 07:00 Resp 22 12/30/17 07:00 BP 122/75 12/30/17 07:00 Pulse Ox 93 L 12/30/17 07:00 Intake & Output 12/29/17 12/30/17 12/30/17 18:59 06:59 18:59 Intake Total 600 600 Output Total 3 Balance 600 597 Weight 72.3 kg Intake: Intake, IV Titration 600 Amount Sodium Chloride 0.9% 1, 600 000 ml @ 75 mls/hr IV . [id number] [facility] Rx#:[id number] Oral 600 Output: Stool 3 Other: Voiding Method Urinal # Voids 2 2 # Bowel Movements 3 1 - Exam General appearance: Sedated with Ativan as per protocol in no apparent distress very emaciated cachectic Head exam: Present: atraumatic, normocephalic Eye exam: Present: normal appearance, PERRL, EOMI ENT exam: Present: normal oropharynx, mucous membranes moist, normal external ear exam Neck exam: Present: normal inspection. Absent: tenderness, meningismus Respiratory exam: Present: normal lung sounds bilaterally. Absent: respiratory distress, wheezes, rales Cardiovascular Exam: Present: normal rhythm, tachycardia GI/Abdominal exam: Present: soft. distended, active bowel sounds, no evidence of tenderness, guarding, rebound, rigid Extremities exam: Present: normal inspection, normal capillary refill. Absent: pedal edema Neurological exam: Patient is alert, oriented X3, CN II-XII intact, intentional tremors present, patient appears calm, conversing normally. Alert and oriented 3. GCS 15.) Skin exam: Present: warm, dry, intact, normal color. Absent: rash - Labs CBC & Chem 7: 12/30/17 09:16 12/30/17 09:16 Labs: Abnormal Lab Results - Last 24 Hours (Table) 12/30/17 12/30/17 Range/Units 09:16 09:16 RBC 2.84 L (4.30-5.90) m/uL Hgb 10.4 L (13.0-17.5) gm/dL Hct 33.7 L (39.0-53.0) % MCV 118.6 H (80.0-100.0) fL MCH 36.8 H (25.0-35.0) pg Chloride 108 H (98-107) mmol/L Creatinine 0.40 L (0.66-1.25) mg/dL Glucose 119 H (74-99) mg/dL AST 89 H (17-59) U/L Alkaline Phosphatase 151 H (38-126) U/L Total Protein 4.9 L (6.3-8.2) g/dL Albumin 2.3 L (3.5-5.0) g/dL Assessment and Plan Assessment: Alcohol withdrawal and impending DTs overall seems to be settling down in stable Ileus likely related to chronic constipation on lactulose now has intermittent diarrhea and loose stool Severe degree of protein calorie malnourishment Encephalopathy likely metabolic and alcohol-related Low urine out put Anuria, patient appears to be incontinent as has been aggressively rehydrated now patient is voiding very well Developing 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 and malnourishment Generalized weakness medical debility short-term memory loss related to above History of smoking and nicotine use History of endocarditis in the remote past Plan: Follow-up on the computed tomography scan of the abdominal and pelvis Continue Gentle rehydration and improved nutritional support Trial of lactulose can be stopped now if okay with primary service CIWA protocol Thiamine and folic acid and MVI Close monitoring on medical floor for falls as well as for impending DTs Anuria/low urine output will be monitored observe lately patient has been voiding very well DVT and peptic ulcer disease prophylaxis Seizure precautions Withdrawal precautions Further recommendations pending plan of care as per clinical response of the patient Continue sitter 24 7 sitter Patient will benefit from psychiatric evaluation and possibly a trial of antidepressant, will defer to primary service Time with Patient: Greater than 30
--- NOTE | 2017-12-30 13:34 | CT ---
EXAMINATION TYPE: CT abdomen pelvis w con DATE OF EXAM: 12/30/2017 COMPARISON: NONE HISTORY: Abd pain CT DLP: 1290 mGycm CONTRAST: CT scan of the abdomen and pelvis is performed with Oral Contrast and with IV Contrast, patient injec mery with 100 mL of Isovue 300. FINDINGS: LUNG BASES-: Moderate bilateral pleural effusions with compressive atelectasis. LIVER/GB: No calcified gallstones. Hepatomegaly with hepatic heterogeneity and a vague micronodular appearance throughout the liver may reflect underlying cirrhotic liver disease. There is recanalizat ion of the umbilical vein. Mildly prominent. Gastric varices. Portal vein appears to be patent. Somew hat diminutive intrahepatic portion of the IVC. PANCREAS: No inflammation. No distinct mass. SPLEEN: No splenic enlargement. No lesion seen. ADRENALS: No nodule. No thickening. KIDNEYS/BLADDER: No hydronephrosis. No nephrolithiasis. No distinct renal mass. Urinary bladder g rossly unremarkable. BOWEL: Normal appendix. Normal bowel caliber. There is diffuse colonic wall thickening which may ref lect norman colitis. Correlate clinically. There may be rectal prolapse. Again clinical correlation is a dvised.. GENITAL ORGANS: No gross abnormality. LYMPH NODES: No greater than 1cm abdominal or pelvic lymph nodes are appreciated. AORTA: No significant abnormality. OSSEOUS STRUCTURES: No significant abnormality is seen. OTHER: There is a large amount of ascites seen throughout the abdomen and pelvis. There is subcutaneo us edema noted as well compatible with anasarca.. IMPRESSION: 1. Suggestion of micronodular appearance of the liver heterogeneity seen throughout as well as recana lization of the umbilical vein suggest underlying cirrhotic liver disease. Correlate clinically. 2. Large amount of ascites throughout the abdomen and pelvis. 3. Anasarca. 4 Norman colitis. See above.
[2017-12-30] MEDS: LORazepam 1 MG TAB PO PRN (20:19)
[2017-12-31] MEDS: SUCRALFATE 1 GM TAB PO SCH ×4 (07:53→20:08)
[2017-12-31] MEDS: PANTOPRAZOLE 40 MG TABLET PO SCH (07:53)
[2017-12-31] MEDS: DOCUSATE 100 MG CAP PO SCH (07:53)
[2017-12-31] MEDS: SODIUM CHLORIDE 0.9% 1,000 ML IV SCH (07:54)
[2017-12-31] MEDS: LIDOCAINE 5% PATCH TOPICAL SCH (07:54)
[2017-12-31] MEDS: LACTULOSE 20 GM/30 ML CUP PO SCH (07:54)
[2017-12-31] MEDS: HYDROCORTISONE SUPPOSITORY 25 MG SUPP RECTAL SCH ×3 (07:54→20:14)
[2017-12-31] MEDS: NICOTINE 21MG/24HR PATCH TRANSDERM SCH (07:54)
[2017-12-31] MEDS: SPIRONOLACTONE 25 MG TAB PO SCH (07:55)
[2017-12-31 09:21] LABS: Basophils % (A) 0 %; Eosinophils # (A) 0.2 k/uL (0-0.7); Eosinophils % (A) 2 %; HCT 31.2 % (39.0-53.0); HGB 9.9 gm/dL (13.0-17.5); Hypochromasia Slight; Lymphocytes # (A) 1.1 k/uL (1.0-4.8); Lymphocytes % (A) 16 %; MCH 37.2 pg (25.0-35.0); MCHC 31.8 g/dL (31.0-37.0); MCV 116.9 fL (80.0-100.0); Macrocytosis Marked; Mean Platelet Volume 7.7; Monocytes # (A) 0.6 k/uL (0-1.0); Monocytes % (A) 8 %; Neutrophils # (A) 4.7 k/uL (1.3-7.7); Neutrophils % (A) 69 %; Platelet Count 344 k/uL (150-450); RBC 2.67 m/uL (4.30-5.90); RDW 15.7 % (11.5-15.5); WBC 6.8 k/uL (3.8-10.6)
[2017-12-31 09:46] LABS: ALT 48 U/L (21-72); AST 89 U/L (17-59); Albumin 2.3 g/dL (3.5-5.0); Alkaline Phosphatase 121 U/L (38-126); Anion Gap 8 mmol/L; Blood Urea Nitrogen 10 mg/dL (9-20); Calcium 8.6 mg/dL (8.4-10.2); Carbon Dioxide 23 mmol/L (22-30); Chloride 107 mmol/L (98-107); Glucose 127 mg/dL (74-99); Magnesium 1.5 mg/dL (1.6-2.3); Potassium 3.8 mmol/L (3.5-5.1); Sodium 138 mmol/L (137-145); Total Bilirubin 0.4 mg/dL (0.2-1.3); Total Protein 4.9 g/dL (6.3-8.2)
[2017-12-31] MEDS: FOLIC ACID 1 MG TAB PO SCH (10:46)
[2017-12-31] MEDS: MULTIVITAMINS, THERA 1 EACH TAB PO SCH (10:46)
[2017-12-31] MEDS: LORazepam 1 MG TAB PO PRN ×2 (10:46→20:08)
[2017-12-31] MEDS: THIAMINE 100 MG TAB PO SCH ×2 (10:46→16:36)
--- NOTE | 2017-12-31 11:37 | XR ---
EXAMINATION TYPE: XR chest 1V DATE OF EXAM: 12/31/2017 COMPARISON: Prior chest x-ray 12/26/[address] 12/30/2017 HISTORY: Difficulty breathing, shortness of breath TECHNIQUE: Single frontal view of the chest is obtained. FINDINGS: Lung volumes are low. There is increased density in the lung bases. No evident pneumothora x. Heart is obscured but likely to be stable accounting for differences in technique. IMPRESSION: There are bibasilar effusions and associated atelectasis versus pneumonia, correlate.
--- NOTE | 2017-12-31 11:39 | P.PN ---
Subjective Progress Note Date: 12/31/17 Principal diagnosis: Mental status and metabolic encephalopathy related to chronic alcoholism, DTs and impending alcohol withdrawal, protein calorie malnourishment, developing dementia and cognitive impairment, generalized weakness and medical debility, ileus likely related to chronic constipation 12/31/2017, patient seen eval examined during the rounds care plan discussed with the primary service as well as the mother present at bedside the computed tomography scan of the abdominal pelvis reviewed chest x-ray performed today reviewed as well, the computed tomography scan revealed finding consistent with cirrhosis of the liver as well as significant amount of ascites, the chest x- ray performed today reveals small lung volume by basilar atelectasis and bilateral pleural effusion more today patient is slightly more short of breath he is on IV fluids and 75 mL an hour and does feel abdominal fullness, he is tachypneic does able to speak full sentences but does have shortness of breath he is eating okay tolerating diet fairly well he is able to consume half of his trays. No episode or evidence of agitated behavior is been seen patient did slip down the bed yet last night some soreness present but no obvious trauma sign has been noted 12/30/2017, patient seen eval examined during the rounds of intermittent loose stools have been present, patient on lactulose, primary services recommended a computed tomography scan of the abdominal pelvis which is pending overall patient has been tolerating by mouth well his coordination and communication the scale and orientation continued to improve slowly 12/29/2017, patient seen eval examined during the rounds the he is sitting upright on the bed eating his lunch mother is present at bedside patient has a significant and multiple bowel movement yesterday and he is feeling much better , does have significant shakiness due to alcoholism and alcohol-related issues but however no significant evidence of withdrawal or DT has been noted so far 12/28/2017, patient seen eval examined during the rounds clinically slightly better able to swallow food with some support nutritional support is being optimized no evidence of the withdrawal or DTs at this point of time patient is being monitored for ileus has been on lactulose 12/27/2017, patient seen eval examined during the rounds patient has just received the Ativan dose he sleeping right now care plan discussed with the nursing staff at length he underwent a chest x-ray and abdominal x-ray results and report of those studies reviewed patient has been constipated but however. Voiding urine very well, chest x-ray revealed subsegmental atelectasis, abdominal x-ray nonspecific picture may be ileus however significant amount of stool on the right side has been seen patient is being started on lactulose once daily 12/26/2017, patient seen eval examined during the rounds he is more awake and alert he is shaky but able to eat by himself patient has some issues associated with sleeping down the bed and fall are 24-hour sitter is sitting in bedside with the patient patient has been incontinent and he has been noted to not be able to control the urine. Patient is at high risk of putting Pollard's catheter giving that likelihood of pulling it off patient will need a sitter as well care plan discussed with the primary service at length, noted laboratory data for HIV testing they're negative so as the hepatitis panel, patient appears to have developed end of severe alcohol-related dementia which appears to be early onset likely encephalopathy and severe degree of protein calorie malnourishment a significant psychiatric component appears to be present for further psychiatric evaluation to primary service 37-year-old male who was seen eval reexamined in the ICU patient presented into the hospital with request from primary care provider to be evaluated for a call withdrawal syndrome, 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 Over the period of time patient has been developing significant memory loss as well cachexia and poor nutrition and progressive weight loss, review of the data revealed that patient spoke to his mother who lived in [place] she arrived in patient subsequently evaluate by primary care provider, last drink was on 2017. 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 Overnight patient has been extremely anxious and stated he has very low urine output in spite of aggressive fluid resuscitation, patient has been on IV fluid 1 50 mL an hour no urine output has been noted on bladder scan some ascites has been noted straight cath has been unsuccessful in evacuating urine urology has been consulted, patient has been on Cipro protocol very anxious and agitated he has pulled his Pollard's catheter once he is a high risk in that regard as well, patient did receive to the Ativan as per Cipro protocol during evaluation he is nonverbal and noncommunicative sounds sleeping at agitated with stable hemodynamics except mild tachycardia he able to maintain his airway Objective - Vital Signs Vital signs: Vital Signs Temp 98.1 F 12/31/17 06:26 Pulse 126 H 12/31/17 06:26 Resp 16 12/31/17 06:26 BP 121/78 12/31/17 06:26 Pulse Ox 93 L 12/31/17 06:26 Intake & Output 12/30/17 12/31/17 12/31/17 18:59 06:59 18:59 Other: Voiding Method Urinal Urinal # Voids 3 2 2 # Bowel Movements 1 2 - Exam General appearance: Sedated with Ativan as per protocol in no apparent distress very emaciated cachectic Head exam: Present: atraumatic, normocephalic Eye exam: Present: normal appearance, PERRL, EOMI ENT exam: Present: normal oropharynx, mucous membranes moist, normal external ear exam Neck exam: Present: normal inspection. Absent: tenderness, meningismus Respiratory exam: Present: normal lung sounds bilaterally. Decreased air entry at the bases somewhat tachypneic today Cardiovascular Exam: Present: normal rhythm, tachycardia GI/Abdominal exam: Present: distended, active bowel sounds, no evidence of tenderness, guarding, rebound, rigid Extremities exam: Present: normal inspection, normal capillary refill. Bilateral ankle and distal pedal edema Neurological exam: Patient is alert, oriented X3, CN II-XII intact, intentional tremors present, patient appears calm, conversing normally. Alert and oriented 3. GCS 15.) Skin exam: Present: warm, dry, intact, normal color. Absent: rash - Labs CBC & Chem 7: 12/31/17 09:03 12/31/17 09:03 Labs: Abnormal Lab Results - Last 24 Hours (Table) 12/31/17 12/31/17 Range/Units 09:03 09:03 RBC 2.67 L (4.30-5.90) m/uL Hgb 9.9 L (13.0-17.5) gm/dL Hct 31.2 L (39.0-53.0) % MCV 116.9 H (80.0-100.0) fL MCH 37.2 H (25.0-35.0) pg RDW 15.7 H (11.5-15.5) % Creatinine 0.32 L (0.66-1.25) mg/dL Glucose 127 H (74-99) mg/dL Magnesium 1.5 L (1.6-2.3) mg/dL AST 89 H (17-59) U/L Total Protein 4.9 L (6.3-8.2) g/dL Albumin 2.3 L (3.5-5.0) g/dL Assessment and Plan Assessment: Cirrhosis of the liver and extensive ascites related to above Shortness of breath/tachypnea related to abdominal distention and ascites and small bilateral pleural effusion Alcohol withdrawal and impending DTs overall seems to be settling down in stable Ileus likely related to chronic constipation on lactulose now has intermittent diarrhea and loose stool Severe degree of protein calorie malnourishment Encephalopathy likely metabolic and alcohol-related, significantly improved Developing 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 and malnourishment Generalized weakness medical debility short-term memory loss related to above History of smoking and nicotine use History of endocarditis in the remote past Plan: Reviewed chest x-ray and computed tomography scan of the abdominal and pelvis we 'll consult interventional radiology for large volume paracentesis Continue Gentle rehydration and improved nutritional support Trial of lactulose can be stopped now if okay with primary service [facility] protocol Thiamine and folic acid and MVI Close monitoring on medical floor for falls as well as for impending DTs Seizure precautions Withdrawal precautions Further recommendations pending plan of care as per clinical response of the patient Patient will benefit from psychiatric evaluation and possibly a trial of antidepressant, will defer to primary service Time with Patient: Greater than 30
--- NOTE | 2017-12-31 12:01 | P.PN ---
Subjective Progress Note Date: 12/31/17 37-year-old male who was evaluated by Dr. Childress on an outpatient basis for weakness, malnutrition, and alcoholism on 12/23/2017. Due to the severity of this, Dr. Childress recommended the patient come to the emergency room for further evaluation. The patient has a history of alcoholism and drinks a fifth per day. The patient's mother lives in [place] but apparently they speak weekly via phone. During their last phone conversation, the mother reports that she could tell he was not doing well and she drove to [place]. She found the patient to be extremely weak and unable to stand or ambulate. Additionally, he was very confused. The mother does report chronic short term memory loss. Last reported drink was on Friday12/22/2017. The patient has a history of endocarditis which he states is secondary to dental work in 1996. Patient denies drug usage. Patient does report smoking 1 pack of cigarettes daily. 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 Patient states he used to wear a lumbar support brace but no longer does. 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 The patient has been living off his savings from his business. EKG: Sinus tachycardia. No ST elevation or depression noted. Laboratory data: WBC 12.1. Hemoglobin 11.2. Platelet count 350. PT 10.5. INR 1.1. PTT 23.8. Sodium 133. Potassium 2.8. BUN 4. Creatinine 0.54. Glucose 122. Magnesium 1.7. AST 214. ALT 79. Alkaline phosphatase 223. Total bilirubin 0.8. Total protein 5.9. Albumin 3.0. Lipase 218. Serum alcohol less than 10 Urinalysis is positive for trace proteinuria but otherwise negative. Toxicology is positive for benzodiazepine but otherwise negative. The patient did receive ativan IV. The patient was admitted to the hospital under the care of Dr. Childress. 12/25/2017 Patient seen and evaluated on rounds with Dr. Childress. Patient was transferred to ICU yesterday for closer monitoring secondary to increased CIWA scores. Patient is lethargic but arousable to verbal stimuli. Patient remains on CIWA protocol and also Ativan 1mg q 4 hours scheduled. Nursing reports that patient was cooperative most of the night. Patient has only voided 150cc during the night and was via straight cath. Bladder scan revealed 200-300cc but inaccurate due to patient ascites. Patient was tachycardic yesterday with a rate in the 130s. Rate was improved to 90-110s. Possibility of TPN was discussed yesterday with dietary. Decision was made to give patient 6 small meals daily at this time. Patients mother is at the bedside. Updated on patient condition and plan of care. 12/26/2017 Patient seen and evaluated on rounds with Dr. Childress in the ICU. Patients mother is at the beside. Patient is awake and alert this morning. Cooperative. He complains of mild lower back pain. Mother reports patient was a little restless through the night and believes it is related to his back pain. Patient has been eating well and states his appetite is good. Per nursing, patient voided 5cc per urinal during the night and had two episodes of incontinence. Urine output continues to be decreased despite of aggressive IV hydration and administration of albumin yesterday. Case discussed with Dr. Lauren, who recommends holding off on further administration of albumin. Also recommends not christie catheter at this time due to patient being restless at times and high risk for patient pulling it out. Patient may transfer out of the ICU to medical floor per Dr. Lauren. 12/27/2017-12/28/2017-Notes per Dr. Childress 12/29/2017 Patient seen and examined at the bedside on rounds with Dr. Childress. Patient is more awake and alert today, however he does remain confused at times. Mother is at the bedside. Mother currently seeking guardianship of patient. Hearing scheduled for 12/30/2017 at 1130. Patient states his abdominal pain has resolved. Patient had a couple very large bowel movements. Abdominal distention is improving. Patient was started on Lactulose BID. Patient states he is hungry this morning. PT/OT are on consult but have no worked with patient since 2017. Discharge planning is in progress. 12/30/2017 Patient seen and examined at the bedside on rounds with Dr. Childress. Patient is awake and alert. Speech remains clear. Patient able to communicate well with provider. Remains confused at times. Patient continues to have some abdominal pain. Per nursing, patient has been having loose stools. Appetite remains good. Discharge planning includes [facility]. 12/31/2017 Patient seen and examined at the bedside on rounds with Dr. Childress. Mother is at the bedside. Patient is awake and alert. Speech is clear. Patient remains confused but able to make needs known. Patient complains of abdominal tenderness and shortness of breath. CT of the abdomen and pelvis with contrast was completed on 12/30/2017 which revealed micronodular appearance of the liver heterogeneity seen throughout as well as free cannulization of the umbilical vein suggest underlying cirrhotic liver disease, large amount of ascites throughout the abdomen and pelvis, anasarca, and pancolitis. GI has been consulted. Chest x-ray was completed revealing bibasilar effusions with associated atelectasis versus pneumonia. Case discussed with Dr. Lauren who thinks shortness of breath is related to ascites and recommends paracentesis. Patient states his appetite is good. Tolerating PO intake well. No further episodes of constipation. Patients mother states patient is a little more agitated today and is sometimes "short" with her when she is talking to him. Patient is tachycardic with heart rate in the 110-120s. BP 121/78. Objective - Vital Signs Vital signs: Vital Signs Temp 98.1 F 12/31/17 06:26 Pulse 126 H 12/31/17 06:26 Resp 16 12/31/17 06:26 BP 121/78 12/31/17 06:26 Pulse Ox 93 L 12/31/17 06:26 Intake & Output 12/30/17 12/31/17 12/31/17 18:59 06:59 18:59 Other: Voiding Method Urinal Urinal # Voids 3 2 2 # Bowel Movements 1 2 - Exam GENERAL: This is a 37-year-old male who does appear slightly short of breath at the time of examation. Emaciated. HEENT: Head is atraumatic, normocephalic. Pupils are equal, round, and reactive to light. Face very thin with sunken eyes. Conjunctivae are clear. Mucus membranes of the mouth are moist. Neck is supple. RESPIRATORY: Clear to ausculation, diminished at the bases. No wheezes, rales, or rhonchi. No use of accessory muscles. Patient maintaining oxygen saturation greater than 92%. No chest wall tenderness is noted on palpation or with deep breathing. CARDIOVASCULAR: Tachycardic. Regular rate and rhythm. S1 and S2 noted. No systolic or diastolic murmur auscultated. No JVD noted. No S3 or S4 noted. GASTROINTESTINAL: Distended with ascites present. Abdominal striae present. Abdomen soft and round. Bowel sounds auscultated x 4 quadrants. RECTAL: Large non-thrombosed external hemorrhoid connected to an internal hemorrhoid. INTEGUMENTARY: No cyanosis. No jaundice. No rashes noted. No cellulitis noted. EXTREMITIES: Muscle wasting present. 2+ peripheral pulses. Trace bilateral lower extremity edema. No calf tenderness noted. NEUROLOGIC: Cranial nerves II-XII intact. Speech normal. Short term memory loss present. Decreased muscle strength and tone to all extremities. PSYCHIATRIC: Awake, alert, and oriented X 2. Cooperative during examination. - Labs CBC & Chem 7: 12/31/17 09:03 12/31/17 09:03 Labs: Abnormal Lab Results - Last 24 Hours (Table) 12/31/17 12/31/17 Range/Units 09:03 09:03 RBC 2.67 L (4.30-5.90) m/uL Hgb 9.9 L (13.0-17.5) gm/dL Hct 31.2 L (39.0-53.0) % MCV 116.9 H (80.0-100.0) fL MCH 37.2 H (25.0-35.0) pg RDW 15.7 H (11.5-15.5) % Creatinine 0.32 L (0.66-1.25) mg/dL Glucose 127 H (74-99) mg/dL Magnesium 1.5 L (1.6-2.3) mg/dL AST 89 H (17-59) U/L Total Protein 4.9 L (6.3-8.2) g/dL Albumin 2.3 L (3.5-5.0) g/dL Assessment and Plan Plan: ASSESSMENT: Alcoholism, pt drinks fifth of whiskey daily Alcohol withdrawal Liver cirrhosis with ascites, secondary to above Shortness of breath, tachypnea, tachycardia, likely related to abdominal distention, ascites, and small bilateral pleural effusions Severe protein calorie malnutrition, BMI 15.4 on admission Alcoholic encephalopathy Short term memory loss with possible Wernicke's encephalopathy Severe debility and inability to ambulate Constipation, now resolved History of endocarditis secondary to dental procedure per patient Nicotine dependence, patient is a current cigarette smoker, 1 PPD Hypokalemia, improved with supplementation Large non-thrombosed external hemorrhoid PLAN: Agree with paracentesis. Consult placed to IR. Ativan PO PRN for agitation Neurology on consult. Appreciate recommendations and input Continue folic acid, thiamine, and daily multivitamin Decrease lactulose to once daily due to recent liquid stools Anusol rectal BID for hemorrhoids Continue Lidoderm patches x 2 daily to patients lower back Encourage smoking cessation. Continue Nicotine patch Encourage abstinence from ETOH Monitor labs GI prophylaxis: Protonix 40 mg PO Daily DVT prophylaxis: SCDs to bilateral lower extremities Monitor vital signs and address as appropriate Further recommendations pending patient's course PT/OT Anticipate discharge to [facility] tomorrow if patient remains stable Nurse practitioner note has been reviewed by physician. Signing provider agrees with the documented findings, assessment, and plan of care.
--- NOTE | 2017-12-31 13:21 | P.CONS ---
History of Present Illness - Reason for Consult Consult date: 12/31/17 liver disease norman colitis Requesting physician: Jacob Childress - History of Present Illness 37-year-old male with a past medical history of memory impairment, polysubstance abuse including alcoholism drinks fifth of liquor on a daily basis , underlying alcohol liver disease possible cirrhosis, severe malnutrition BMI 18.9, endocarditis, admitted a week ago with reports of abdominal distention, constipation, weakness unable to ambulate confusion. Consult requested for liver disease and norman colitis. History was obtained from patient and his mother at bedside secondary to his memory loss. Patient has been drinking alcohol since 14 years of age his mother is a recovering alcoholic. Mother states he drinks alcohol for pain relief medicinal usage but is looking for alternative treatments for pain management. Admission CT of the head no acute intracranial hemorrhage. Discussion was held this morning with attending Dr. Childress patient was grossly distended mostly from obstipation provide some laxatives lactulose/ with good bowel movement response however CT of the abdomen yesterday reported moderate ascites Hepatomegaly with hepatic heterogeneity and of a micronodular appearance to the liver which may reflect underlying cirrhotic liver disease with recannulization of the umbilical vein. Gastric varices. Portal vein appeared patent. Norman colitis. Anasarca. Normal appendix normal bowel caliber diffuse colonic wall thickening which may reflect pancolitis to correlate clinically. Ultrasound abdomen; liver length 20 cm. CBD 0.2 cm. Pancreas not visualized. No fever chills or hematemesis hematochezia melena. Current chemistries: White count 6.8. Hemoglobin 9.9. MCV 116. Platelets 344. INR 1.0. Sodium 138. Potassium 3.8. BUN 10. Creatinine 0.3. Total bilirubin 0.4. AST 89. ALT 48. Alkaline phosphatase 121. Albumin 2.3. Hepatitis HIV screen nonreactive. 12/25/2017 ammonia 17 receiving lactulose daily. In regards to pancolitis findings on CT patient is denying abdominal pain just discomfort from the distention and ascites. He is averaging 1-2 bowel movements a day which can be expected while receiving lactulose. Review of Systems Constitutional: Denies fever, chills, sweats, weight gain, or loss. HEENT: Negative for migraines, blurred vision or loss, earaches, drainage, tinnitus, oral mucosal lesions, dysphagia, or odynophagia. History of memory impairment. Cardiac: Negative for chest pain, arrhythmias, or palpitation. Respiratory: Negative for shortness of breath, hemoptysis, cough, or sputum production. Gastrointestinal: See HPI for pertinent findings. Genitourinary: Negative for hematuria, urgency, frequency, polyuria, dysuria, or penile discharge. Musculoskeletal: Reports profound weakness unable to ambulate. Negative for muscle aches, swelling, arthritis, and arthralgias. Neurologic: Negative for stroke or TIA. Endocrine: Negative for thyroid problems. Skin: Negative for rash or itching. Psychiatric: Denies suicidal or homicidal ideations. Past Medical History Past Medical History: GERD/Reflux, GI Bleed, Memory Impairment Additional Past Medical History / Comment(s): Endocarditis.murmur chronic alcoholism "past severe withdrawl(seizure) at [facility] in [place], also pt's mom stated he had gi bleed shile there not sure if it was an ulcer or not". has short erm memory problems. numbness/tingling in feet/hands, past shingles when younger History of Any Multi-Drug Resistant Organisms: None Reported Past Surgical History: No Surgical Hx Reported Additional Past Surgical History / Comment(s): egd/colonoscopy Past Anesthesia/Blood Transfusion Reactions: No Reported Reaction Additional Past Anesthesia/Blood Transfusion Reaction / Comm: pt lives by himself. [place] 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 in past worked in [employer]. Smoking Status: Current every day smoker - Past Family History Mother Family Medical History: Hypertension, Renal Disease Additional Family Medical History / Comment(s): graves disease Father Family Medical History: Cancer Additional Family Medical History / Comment(s): depression, colon cancer, pituitary problem Medications and Allergies Home Medications Medication Instructions Recorded Confirmed Type No Known Home Medications [No 12/23/17 12/23/17 History Known Home Medications] Allergies Allergy/AdvReac Type Severity Reaction Status Date / Time No Known Allergies Allergy Verified 12/23/17 18:27 Physical Exam Vitals: Vital Signs Temp Pulse Pulse Resp BP Pulse Ox 12/31/17 06:26 98.1 F 126 H 16 121/78 93 L 12/30/17 23:00 98.8 F 129 H 16 113/78 93 L 12/30/17 16:41 98.1 F 110 H 19 115/72 96 12/30/17 15:20 108 H 18 122/65 93 L 12/30/17 15:00 97.3 F L 120 H 20 126/58 92 L Intake and Output 12/30/17 12/31/17 12/31/17 22:59 06:59 14:59 Other: Voiding Method Urinal Urinal # Voids 2 2 2 # Bowel Movements 1 2 General appearance: The patient is alert, oriented, in no acute distress. Patient has difficulty with memory recall. His overall appearance is thin and cachectic. HET: Head is normocephalic and atraumatic. Pupils are equal and reactive. Oropharynx is clear without lesions. Neck: Supple without lymphadenopathy. Trachea midline. Heart: S1 S2. Regular rate and rhythm. Lungs: No crackles or wheezes are heard. Abdomen: Soft, distended with ascites minimally tender with bowel sounds. No peritoneal signs. No palpable organomegaly or masses. Extremities: Mild asterixis bilaterally.. +2/+3 pitting bilateral lower extremity edema. Radial and pedal pulses are 2/4 bilaterally. Neurological: No focal deficits. Strength and sensation are grossly intact but weak. Results CBC & Chem 7: 12/31/17 09:03 12/31/17 09:03 Labs: Abnormal Lab Results - Last 24 Hours (Table) 12/31/17 12/31/17 Range/Units 09:03 09:03 RBC 2.67 L (4.30-5.90) m/uL Hgb 9.9 L (13.0-17.5) gm/dL Hct 31.2 L (39.0-53.0) % MCV 116.9 H (80.0-100.0) fL MCH 37.2 H (25.0-35.0) pg RDW 15.7 H (11.5-15.5) % Creatinine 0.32 L (0.66-1.25) mg/dL Glucose 127 H (74-99) mg/dL Magnesium 1.5 L (1.6-2.3) mg/dL AST 89 H (17-59) U/L Total Protein 4.9 L (6.3-8.2) g/dL Albumin 2.3 L (3.5-5.0) g/dL CT scan - abdomen: report reviewed (Dr. Awad) US - abdomen: report reviewed (Dr. Awad) Assessment and Plan Assessment: Impression: 1. EtOH abuse underlying alcohol liver disease suspect underlying cirrhosis. Gastric varices ascites secondary to suspected portal hypertension. 2. Severe protein calorie malnutrition exacerbated by alcoholism. 3. Mental status changes suspect EtOH hepatic encephalopathy possible metabolic encephalopathy. 4. Macrocytic anemia without bleeding. 5. Transaminitis most likely from underlying alcohol hepatitis. 6. Hypoalbuminemia. Recommendations: 1. Therapeutic diagnostic paracentesis fluid for cytology and evaluation to confirm portal hypertension. AFP marker. 2. Continue with vitamin supplementation and protein shake supplementation as advised by dietitian. 3. Return to office in 7-10 days for reevaluation. 4. Alcohol abstinence was strongly advised. 5. In regards to pancolitis findings seen on CT clinically patient is not exhibiting signs typical of seen with pancolitis such as fever, leukocytosis, abdominal pain or persistent diarrhea. Patient is having one to 2 loose stools daily which is most likely attributed to the lactulose administration. 6. Discharge to ECF per medicine. Thank you for this kind referral and the opportunity to participate in the care of your patient. This consultation was discussed with Dr. Awad. The impression and plan of care have been directed as dictated.
--- NOTE | 2017-12-31 16:08 | US ---
EXAMINATION TYPE: US paracentesis abd w/image DATE OF EXAM: 12/31/2017 COMPARISON: NONE HISTORY: Ascites. PROCEDURE: Maximal barrier technique was utilized. The skin overlying a suitable pocket of fluid was localized with ultrasound and the overlying skin was prepped and draped. Ultrasound was utilized with sterile technique. Lidocaine was used for local anesthesia and a skin maureen made with a scalpel. Catheter was advanced under direct ultrasound guidance into a suitable pocket of fluid and approximately 5.3 liter s of serous fluid were removed. Catheter was withdrawn and hemostasis achieved. There is no immedia te complication; the patient is discharged in stable condition. IMPRESSION: STATUS POST ULTRASOUND GUIDED PARACENTESIS FOR PALLIATION OF ASCITES. THIS PROCEDURE WA S PERFORMED BY THE UNDERSIGNED. Specimen sent for laboratory analysis
[2017-12-31 18:36] LABS: Appearance,BF Hazy; Nucleated Cells, Body Fluid 4 /uL; RBC, Body Fluid 6 /uL
[2017-12-31 23:43] VITALS: RESP 20
--- NOTE | 2017-12-31 23:45 | P.PN ---
Subjective Progress Note Date: 12/31/17 This patient is a 37-year-old right-handed white male who was seen in neurology consultation yesterday for evaluation of alcohol withdrawal syndrome and confusion. Patient had been drinking a fifth of alcohol daily for the past 6 months. He was not eating properly at home and has had significant malnutrition. He was advised admission to the hospital yesterday for further evaluation. She was sent for a computed tomography scan of the brain yesterday which revealed no acute intracranial abnormality. No evidence of hemorrhage, mass effect, midline shift. Patient was started on a CIWA protocol yesterday. Apparently his condition worsen today as CIWA scale indicated worsening symptoms of alcohol withdrawal and impending delirium tremens. He was transferred to the intensive care unit this evening for further close monitoring. Apparently on the medical floor his CIWA scale was 18. After transfer to the intensive care unit his repeat CIWA scale is 10.0. Patient was seen in consultation with psychiatry today for alcohol use disorder and severe alcohol withdrawal. They're recommending alcohol rehab treatment for the patient as well as AA program. They are recommending inpatient alcohol rehab when he is physically able. Patient is resting comfortably. We did review the results of his CAT scan of the brain today with him. There was no evidence of any acute stroke or hemorrhage. He is scheduled to have an EEG done for further assessment of his memory loss. EEG was completed today and was reviewed. His EEG is normal for his age. No evidence of any epileptiform discharges. Patient should be closely monitored for Wernicke's encephalopathy. We will check his vitamin B12 level as well. Patient was transferred out of the intensive care unit to the medical floor. He continues to do well other than complaining of increasing abdominal pain. The patient underwent therapeutic and diagnostic paracentesis today for further evaluation of this abdominal distention. Computed tomography scan of the abdomen performed yesterday revealed micronodular appearance of the liver suggesting underlying cirrhotic liver disease. Large amounts of ascites was also noted. Patient continues to have somewhat of a good appetite. He still remains confused and disoriented. Would continue close monitoring of his alcohol withdrawal syndrome. Would continue the patient on folic acid, thiamine, and multivitamin daily. We will continue close neurological follow-up with the patient during this admission. Objective - Vital Signs Vital signs: Vital Signs Temp 99.2 F 12/31/17 15:30 Pulse 119 H 12/31/17 15:30 Resp 18 12/31/17 15:30 BP 115/76 12/31/17 15:30 Pulse Ox 94 L 12/31/17 15:30 Intake & Output 12/31/17 12/31/17 01/01/18 06:59 18:59 06:59 Intake Total 600 Output Total 3 Balance 597 Intake: Oral 600 Output: Stool 3 Other: Voiding Method Urinal Urinal # Voids 2 2 # Bowel Movements 2 1 - Exam Physical examination: PHYSICAL EXAMINATION: Patient is resting comfortably in bed. VITAL SIGNS: Blood pressure is [115/76]. Heart rate is [119]. Respiration is [18 ]. Temperature is [99.2]. HEENT: Head is atraumatic, neck is supple, there were no carotid bruits. CHEST: Lungs are clear to auscultation and percussion. CARDIAC: S1, S2 normal rate and rhythm. There is no murmur. ABDOMEN: Abdomen is distended. It is painful to touch. Distention is quite noticeable bilaterally. EXTREMITIES: There is no pedal edema. Peripheral pulses are present. Neurological examination: Patient has a nonfocal neurological examination today. Patient is slightly more awake and alert today. - Labs CBC & Chem 7: 12/31/17 09:03 12/31/17 09:03 Labs: Abnormal Lab Results - Last 24 Hours (Table) 12/31/17 12/31/17 Range/Units 09:03 09:03 RBC 2.67 L (4.30-5.90) m/uL Hgb 9.9 L (13.0-17.5) gm/dL Hct 31.2 L (39.0-53.0) % MCV 116.9 H (80.0-100.0) fL MCH 37.2 H (25.0-35.0) pg RDW 15.7 H (11.5-15.5) % Creatinine 0.32 L (0.66-1.25) mg/dL Glucose 127 H (74-99) mg/dL Magnesium 1.5 L (1.6-2.3) mg/dL AST 89 H (17-59) U/L Total Protein 4.9 L (6.3-8.2) g/dL Albumin 2.3 L (3.5-5.0) g/dL Assessment and Plan (1) Encephalopathy Current Visit: Yes Status: Acute Code(s): G93.40 - ENCEPHALOPATHY, UNSPECIFIED SNOMED Code(s): 48958305 (2) Malnutrition Current Visit: Yes Status: Acute Code(s): E46 - UNSPECIFIED PROTEIN-CALORIE MALNUTRITION SNOMED Code(s): 50619971 (3) Withdrawal symptoms, alcohol Current Visit: Yes Status: Acute Code(s): F10.239 - ALCOHOL DEPENDENCE WITH WITHDRAWAL, UNSPECIFIED SNOMED Code(s): 046305398 Plan: This patient is a 37-year-old male who was admitted with history of polysubstance abuse including alcohol is him. He has been drinking a fifth of liquor on a daily basis and has evidence of alcohol liver disease and possible cirrhosis. Patient underwent paracentesis today due to abdominal distention. He still complains of some abdominal pain. He is being treated for alcohol withdrawal syndrome and is currently on protocol. He has evidence of confusion secondary to alcohol or take encephalopathy as well as hepatic encephalopathy. Continue close monitoring at this time. He is on Ativan for treatment of his agitation and alcohol withdrawal symptoms. His overall prognosis at this time remains guarded. Plans are in place for possible discharge to ECF when he is medically stable. We will continue close neurological follow-up with the patient during this admission.
[2018-01-01 06:23] VITALS: BP 117/78; PULSE 116; TEMP 98.7
[2018-01-01] MEDS: SUCRALFATE 1 GM TAB PO SCH (08:28)
[2018-01-01] MEDS: PANTOPRAZOLE 40 MG TABLET PO SCH (08:29)
[2018-01-01] MEDS: SPIRONOLACTONE 25 MG TAB PO SCH (08:29)
[2018-01-01] MEDS: NICOTINE 21MG/24HR PATCH TRANSDERM SCH (08:29)
[2018-01-01] MEDS: DOCUSATE 100 MG CAP PO SCH (08:29)
[2018-01-01] MEDS: LIDOCAINE 5% PATCH TOPICAL SCH (08:29)
[2018-01-01] MEDS: HYDROCORTISONE SUPPOSITORY 25 MG SUPP RECTAL SCH (08:29)
[2018-01-01] MEDS ORDERED: LACTULOSE 20 GM/30 ML CUP PO SCH (09:00)
--- NOTE | 2018-01-01 10:12 | P.DS ---
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 Do you want consulting provider notified?: Yes 12/25/17 15:07 Consult Physician Urgent Consulting Provider: Shashi Shi Consult Reason/Comments: low urine Do you want consulting provider notified?: Yes 12/30/17 16:41 Consult Physician Routine Consulting Provider: Cary Awad Consult Reason/Comments: liver disease, pancolitis Do you want consulting provider notified?: Yes 12/31/17 11:40 Consult Physician Routine Consulting Provider: Grzegorz Becker Consult Reason/Comments: ascites, evaluate for large volume paracentesis Do you want consulting provider notified?: Yes Primary care physician: Jacob Childress Hospital Course: 37-year-old male who was evaluated by Dr. Childress on an outpatient basis for weakness, malnutrition, and alcoholism on 12/23/2017. Due to the severity of this, Dr. Childress recommended the patient come to the emergency room for further evaluation. The patient has a history of alcoholism and drinks a fifth per day. The patient's mother lives in [place] but apparently they speak weekly via phone. During their last phone conversation, the mother reports that she could tell he was not doing well and she drove to [place]. She found the patient to be extremely weak and unable to stand or ambulate. Additionally, he was very confused. The mother does report chronic short term memory loss. Last reported drink was on Friday12/22/2017. The patient has a history of endocarditis which he states is secondary to dental work in 1996. Patient denies drug usage. Patient does report smoking 1 pack of cigarettes daily. 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 Patient states he used to wear a lumbar support brace but no longer does. 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 The patient has been living off his savings from his business. EKG: Sinus tachycardia. No ST elevation or depression noted. Laboratory data: WBC 12.1. Hemoglobin 11.2. Platelet count 350. PT 10.5. INR 1.1. PTT 23.8. Sodium 133. Potassium 2.8. BUN 4. Creatinine 0.54. Glucose 122. Magnesium 1.7. AST 214. ALT 79. Alkaline phosphatase 223. Total bilirubin 0.8. Total protein 5.9. Albumin 3.0. Lipase 218. Serum alcohol less than 10 Urinalysis is positive for trace proteinuria but otherwise negative. Toxicology is positive for benzodiazepine but otherwise negative. The patient did receive ativan IV. The patient was initially admitted to a general medical floor. He was placed on the CIWA protocol. As the patient went through alcohol withdrawal, his CIWA scores increased and he was transferred to the intensive care unit for closer monitoring. The patient received IV ativan as needed based on his CIWA scores. The patient had decreased urine output and was only voiding 5-10cc at a time. Bladder scan was inaccurate due to ascites. Straight cath was performed with no output. The patient received aggressive IV hydration and a dose of IV albumin. He was also started on aldactone 25mg daily. His urine output increased. The patient has since been voiding without difficulty. He is incontinent at times and wears a brief. Dietary evaluated the patient during hospitalization. Discussion was held regarding TPN but ultimately provider team decided to continue with PO nutrition. The patients appetite has been good and he is tolerating his meals. He was also started on a multivitamin, folic acid, and thiamine. The patient became constipated during hospitalization. He was placed on lactulose BID and colace. Xray was performed revealing dilated loops of bowel with a moderate amount of stool in the right side of the colon. The patient had a large bowel movement and has been having daily bowel movements since that time. His lactulose was decreased to once a day dosing. The patient underwent a CT scan of the abdomen and pelvis on 12/30/2017 which revealed micronodular appearance of the liver heterogeneity seen throughout as well as free cannulization of the umbilical vein suggest underlying cirrhotic liver disease, large amount of ascites throughout the abdomen and pelvis, anasarca, and pancolitis. GI was consulted. Hepatitis and HIV testing was nonreactive. Pancolitis was ruled out per GI service. The patient does have a large external hemorrhoid. He was started on Anusol rectally BID. On 12/31/2017, the patient complained of shortness of breath. Chest x-ray was completed revealing bibasilar effusions with associated atelectasis versus pneumonia. Case discussed with Dr. Lauren who thinks shortness of breath is related to ascites and recommended paracentesis. Dr. Childress was agreeable and patient underwent paracentesis on 12/31/2017 with drainage of 5.3 L of fluid. Culture and cytology are currently pending. The patient has remained confused during hospitalization. Neurology followed patient during his stay. He underwent EEG which was negative for seizure activity. The patients ativan has been transitioned to oral. Psychiatry was consulted to evaluate patient during hospitalization. Psychiatry recommends inpatient alcohol rehab when he has completed subacute rehab and is physically able. The patients mother went to court on 12/31/2017 and was awarded temporary guardianship of the patient. She states her next hearing is in January. The patient was deemed stable for discharge to [facility] per Dr. Childress. He is to follow up on an outpatient basis with Dr. Childress and all consulting providers. DISCHARGE DIAGNOSIS: Alcoholism, pt drinks fifth of whiskey daily Alcohol withdrawal Liver cirrhosis with ascites, secondary to above Shortness of breath, tachypnea, tachycardia, likely related to abdominal distention, ascites, and small bilateral pleural effusions, resolved S/P paracentesis with drainage of 5.3 L of fluid, SOB resolved Severe protein calorie malnutrition, BMI 15.4 on admission Alcoholic encephalopathy Short term memory loss with possible Wernicke's encephalopathy Severe debility and inability to ambulate Constipation, now resolved History of endocarditis secondary to dental procedure per patient Nicotine dependence, patient is a current cigarette smoker, 1 PPD Hypokalemia, improved with supplementation Large non-thrombosed external hemorrhoid Pancolitis, ruled out per GI service Nurse practitioner note has been reviewed by physician. Signing provider agrees with the documented findings, assessment, and plan of care. Patient Condition at Discharge: Fair Plan - Discharge Summary Discharge Rx Participant: No New Discharge Prescriptions: New Docusate [Colace] 100 mg PO DAILY cap Folic Acid 1 mg PO DAILY@1200 tab Hydrocortisone Suppository [Anusol-Hc] 25 mg RECTAL BID supp Lactulose [Cephulac] 30 gm PO DAILY ml Lidocaine 5% Patch [Lidoderm 5% Patch] 2 patch TOPICAL DAILY patch LORazepam [Ativan] 1 mg PO Q8HR PRN tab PRN Reason: Agitation Multivitamins, Thera [Multivitamin (formulary)] 1 each PO DAILY@1200 tab Nicotine 21Mg/24Hr Patch [Habitrol] 1 patch TRANSDERM DAILY #0 patch Pantoprazole [Protonix] 40 mg PO AC-BRKFST tablet. Spironolactone [Aldactone] 25 mg PO DAILY tab Sucralfate [Carafate] 1 gm PO ACHS tab Thiamine [Vitamin B-1] 100 mg PO BID@1200,1700 tab Discharge Medication List Docusate [Colace] 100 mg PO DAILY cap 01/01/18 [Rx] Folic Acid 1 mg PO DAILY@1200 tab 01/01/18 [Rx] Hydrocortisone Suppository [Anusol-Hc] 25 mg RECTAL BID supp 01/01/18 [Rx] LORazepam [Ativan] 1 mg PO Q8HR PRN tab 01/01/18 [Rx] Lactulose [Cephulac] 30 gm PO DAILY ml 01/01/18 [Rx] Lidocaine 5% Patch [Lidoderm 5% Patch] 2 patch TOPICAL DAILY patch 01/01/18 [Rx ] Multivitamins, Thera [Multivitamin (formulary)] 1 each PO DAILY@1200 tab [Rx] Nicotine 21Mg/24Hr Patch [Habitrol] 1 patch TRANSDERM DAILY #0 patch 01/01/18 [ Rx] Pantoprazole [Protonix] 40 mg PO AC-BRKFST tablet. 01/01/18 [Rx] Spironolactone [Aldactone] 25 mg PO DAILY tab 01/01/18 [Rx] Sucralfate [Carafate] 1 gm PO ACHS tab 01/01/18 [Rx] Thiamine [Vitamin B-1] 100 mg PO BID@1200,1700 tab 01/01/18 [Rx] Follow up Appointment(s)/Referral(s): Soren Hassan MD [STAFF PHYSICIAN] - 2 Weeks [facility], [NON-STAFF] - 1 Week Jacob Childress MD [Primary Care Provider] - 1 Week Leticia Eng PAC [REFERRING] - 01/12/18 1:00 pm Patient Instructions/Handouts: Malnutrition (DC), Alcohol Dependence (GEN) Activity/Diet/Wound Care/Special Instructions: Regular diet NO alcohol, references provided. NO smoking, cessation info given and strongly recommended. Physical therapy daily, fall precautions. Discharge Disposition: TRANSFER TO SNF/ECF
--- NOTE | 2018-01-01 10:22 | P.PN ---
Subjective Progress Note Date: 01/01/18 Principal diagnosis: Mental status and metabolic encephalopathy related to chronic alcoholism, DTs and impending alcohol withdrawal, protein calorie malnourishment, developing dementia and cognitive impairment, generalized weakness and medical debility, ileus likely related to chronic constipation 2017, patient seen eval reexamined during the rounds the he is awake and alert breathing comfortably less short of breath compared to yesterday he is status post large volume paracentesis 5.5 L of fluid has been removed, care plan discussed with the primary service as well as the mother present at bedside , patient has been tolerating by mouth well, labs reviewed medications reviewed , Gram stain on the peritoneal fluid is negative for any organism, culture results and reports are pending, mental status is more clear today 12/31/2017, patient seen eval examined during the rounds care plan discussed with the primary service as well as the mother present at bedside the computed tomography scan of the abdominal pelvis reviewed chest x-ray performed today reviewed as well, the computed tomography scan revealed finding consistent with cirrhosis of the liver as well as significant amount of ascites, the chest x- ray performed today reveals small lung volume by basilar atelectasis and bilateral pleural effusion more today patient is slightly more short of breath he is on IV fluids and 75 mL an hour and does feel abdominal fullness, he is tachypneic does able to speak full sentences but does have shortness of breath he is eating okay tolerating diet fairly well he is able to consume half of his trays. No episode or evidence of agitated behavior is been seen patient did slip down the bed yet last night some soreness present but no obvious trauma sign has been noted 12/30/2017, patient seen eval examined during the rounds of intermittent loose stools have been present, patient on lactulose, primary services recommended a computed tomography scan of the abdominal pelvis which is pending overall patient has been tolerating by mouth well his coordination and communication the scale and orientation continued to improve slowly 12/29/2017, patient seen eval examined during the rounds the he is sitting upright on the bed eating his lunch mother is present at bedside patient has a significant and multiple bowel movement yesterday and he is feeling much better , does have significant shakiness due to alcoholism and alcohol-related issues but however no significant evidence of withdrawal or DT has been noted so far 12/28/2017, patient seen eval examined during the rounds clinically slightly better able to swallow food with some support nutritional support is being optimized no evidence of the withdrawal or DTs at this point of time patient is being monitored for ileus has been on lactulose 12/27/2017, patient seen eval examined during the rounds patient has just received the Ativan dose he sleeping right now care plan discussed with the nursing staff at length he underwent a chest x-ray and abdominal x-ray results and report of those studies reviewed patient has been constipated but however. Voiding urine very well, chest x-ray revealed subsegmental atelectasis, abdominal x-ray nonspecific picture may be ileus however significant amount of stool on the right side has been seen patient is being started on lactulose once daily 12/26/2017, patient seen eval examined during the rounds he is more awake and alert he is shaky but able to eat by himself patient has some issues associated with sleeping down the bed and fall are 24-hour sitter is sitting in bedside with the patient patient has been incontinent and he has been noted to not be able to control the urine. Patient is at high risk of putting Pollard's catheter giving that likelihood of pulling it off patient will need a sitter as well care plan discussed with the primary service at length, noted laboratory data for HIV testing they're negative so as the hepatitis panel, patient appears to have developed end of severe alcohol-related dementia which appears to be early onset likely encephalopathy and severe degree of protein calorie malnourishment a significant psychiatric component appears to be present for further psychiatric evaluation to primary service 37-year-old male who was seen eval reexamined in the ICU patient presented into the hospital with request from primary care provider to be evaluated for a call withdrawal syndrome, patient has 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 Over the period of time patient has been developing significant memory loss as well cachexia and poor nutrition and progressive weight loss, review of the data revealed that patient spoke to his mother who lived in [place] she arrived in patient subsequently evaluate by primary care provider, last drink was on 2017. 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 Overnight patient has been extremely anxious and stated he has very low urine output in spite of aggressive fluid resuscitation, patient has been on IV fluid 1 50 mL an hour no urine output has been noted on bladder scan some ascites has been noted straight cath has been unsuccessful in evacuating urine urology has been consulted, patient has been on Cipro protocol very anxious and agitated he has pulled his Pollard's catheter once he is a high risk in that regard as well, patient did receive to the Ativan as per Cipro protocol during evaluation he is nonverbal and noncommunicative sounds sleeping at agitated with stable hemodynamics except mild tachycardia he able to maintain his airway Objective - Vital Signs Vital signs: Vital Signs Temp 98.7 F 01/01/18 06:22 Pulse 116 H 01/01/18 06:22 Resp 20 01/01/18 06:22 BP 117/78 01/01/18 06:22 Pulse Ox 94 L 01/01/18 06:22 Intake & Output 12/31/17 01/01/18 01/01/18 18:59 06:59 18:59 Intake Total 600 650 240 Output Total 3 Balance 597 650 240 Weight 72.3 kg Intake: Oral 600 650 240 Output: Stool 3 Other: Voiding Method Urinal Urinal Urinal # Voids 2 2 # Bowel Movements 1 2 - Exam General appearance: Sedated with Ativan as per protocol in no apparent distress very emaciated cachectic Head exam: Present: atraumatic, normocephalic Eye exam: Present: normal appearance, PERRL, EOMI ENT exam: Present: normal oropharynx, mucous membranes moist, normal external ear exam Neck exam: Present: normal inspection. Absent: tenderness, meningismus Respiratory exam: Present: normal lung sounds bilaterally. Decreased air entry at the bases somewhat less tachypneic today Cardiovascular Exam: Present: normal rhythm, tachycardia GI/Abdominal exam: Present: distended, active bowel sounds, no evidence of tenderness, guarding, rebound, rigid Extremities exam: Present: normal inspection, normal capillary refill. Bilateral ankle and distal pedal edema Neurological exam: Patient is alert, oriented X3, CN II-XII intact, intentional tremors present, patient appears calm, conversing normally. Alert and oriented 3. GCS 15.) Skin exam: Present: warm, dry, intact, normal color. Absent: rash - Labs CBC & Chem 7: 12/31/17 09:03 12/31/17 09:03 Labs: Microbiology - Last 24 Hours (Table) 12/31/17 13:30 Gram Stain - Preliminary Ascites Fluid Body Fluid Culture - Preliminary Assessment and Plan Assessment: Ascites status post large volume paracentesis Cirrhosis of the liver and extensive ascites related to above Shortness of breath/tachypnea related to abdominal distention and ascites and small bilateral pleural effusion Alcohol withdrawal and impending DTs overall seems to be settling down in stable Ileus likely related to chronic constipation on lactulose now has intermittent diarrhea and loose stool Severe degree of protein calorie malnourishment Encephalopathy likely metabolic and alcohol-related, significantly improved Developing 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 and malnourishment Generalized weakness medical debility short-term memory loss related to above History of smoking and nicotine use History of endocarditis in the remote past Plan: Reviewed chest x-ray and computed tomography scan of the abdominal and pelvis status post large volume paracentesis Ammann patient might require another large -volume paracentesis depending upon rate and rapidly of collection of fluid Continue Gentle rehydration and improved nutritional support Trial of lactulose can be stopped now if okay with primary service CIWA protocol Thiamine and folic acid and MVI Close monitoring on medical floor for falls as well as for impending DTs Seizure precautions Withdrawal precautions Further recommendations pending plan of care as per clinical response of the patient Patient will benefit from psychiatric evaluation and possibly a trial of antidepressant, will defer to primary service Time with Patient: Greater than 30
[2018-01-01 18:06] LABS: Total Protein, Body Fluid 398 mg/dL
== END 2018-01-01 12:35 | DRG 896 ==
LOC: EC 13:57 → 4MS4W 14:25 → OBSVTOIN 12-24 11:35 → 6ICU 12-24 18:29 → 4MS4W 12-26 11:06
PROVIDERS: ADMIT Family Medicine; ATTEND Family Medicine
PROC: 0W9G3ZZ Drainage of Peritoneal Cavity, Percutaneous Approach (ICD-10-PCS; principal; 2017-12-31)
DX: F10.231 Alcohol dependence with withdrawal delirium (principal); G93.41 Metabolic encephalopathy; E43 Unspecified severe protein-calorie malnutrition; G31.2 Degeneration of nervous system due to alcohol; R64 Cachexia; K51.00 Ulcerative (chronic) pancolitis without complications; K76.6 Portal hypertension; K70.11 Alcoholic hepatitis with ascites; E88.09 Other disorders of plasma-protein metabolism, not elsewhere classified; Z68.1 Body mass index [BMI] 19.9 or less, adult; E51.2 Wernicke's encephalopathy; J98.11 Atelectasis; E86.0 Dehydration; I86.4 Gastric varices; K64.4 Residual hemorrhoidal skin tags; K70.31 Alcoholic cirrhosis of liver with ascites; K70.9 Alcoholic liver disease, unspecified; F17.213 Nicotine dependence, cigarettes, with withdrawal; G89.4 Chronic pain syndrome; D53.9 Nutritional anemia, unspecified; K21.9 Gastro-esophageal reflux disease without esophagitis; R53.81 Other malaise; E87.6 Hypokalemia; Z81.1 Family history of alcohol abuse and dependence; Z86.19 Personal history of other infectious and parasitic diseases; Z80.0 Family history of malignant neoplasm of digestive organs; Z81.8 Family history of other mental and behavioral disorders; Z82.49 Family history of ischemic heart disease and other diseases of the circulatory system
CPT/HCPCS: 36415; 49083; 70450; 71045; 74018; 74021; 74177; 76700; 80048; 80053; 80074; 80076; 80306; 80320; 81003; 82105; 82140; 82550; 82607; 82945; 83615; 83690; 83735; 84100; 84132; 84157; 85025; 85610; 85730; 87070; 87205; 87390; 87536; 87901; 89050; 93005; 93306; 95819; 96361; 96372; 96374; 99285

== ENCOUNTER → 2018-02-23 | Outpatient (CLI) | payer BC ==
--- NOTE | 2018-02-23 14:11 | MR ---
MR brain without contrast HISTORY: Metabolic encephalopathy, alcoholism Multiplanar multisequence imaging through the brain No comparisons There is no restricted diffusion. There is no hemorrhage or hydrocephalus. There are normal vascular flow voids. Cerebellopontine angles, corpus callosum, pituitary, cervical medullary junction are norm al. The orbits show symmetric appearance. Paranasal sinuses and mastoid air cells as visualized are w ell aerated. Brain signal is maintained. IMPRESSION: Normal brain MRI.
== END | disposition home or self-care (01) ==
LOC: RADMRIMAIN 11:45
PROVIDERS: ATTEND Psychiatry & Neurology Neurology
DX: G93.41 Metabolic encephalopathy (principal); F10.20 Alcohol dependence, uncomplicated
CPT/HCPCS: 70551

== ENCOUNTER 2018-03-16 12:52 | Day surgery (SDC) | payer BC ==
[2018-03-11 10:26] VITALS: BMI 17.5
[~2018-03-16 12:52] MED LIST: LACTATED RINGERS 1,000 ML IV SCH; LIDOCAINE 1% 20 ML VIAL (10MG/ML) FOR IV START INTRADERMA PRN
[2018-03-16] MEDS ORDERED: LACTATED RINGERS 1,000 ML IV ONE (12:57)
[2018-03-16 13:04] VITALS: RESP 18; TEMP 97.4
[2018-03-16] MEDS ORDERED: PROPOFOL 10 MG/ML 20 ML VIAL IV ONE (15:13)
--- NOTE | 2018-03-16 15:45 | P.PCN ---
Date of Procedure: 03/16/18 Procedure(s) Performed: Procedure: Esophagogastroduodenoscopy. Preoperative diagnosis: History of cirrhosis of the liver for screening for esophageal varices. Postoperative diagnosis: 1. Normal esophagus without any esophageal varices. 2. Normally stomach without any gastropathy or gastric varices. Preparation and sedation was provided by anesthesia. Brief clinical history: The patient is a 37-year-old male with history of alcoholic cirrhosis of the liver. The patient has not been drinking alcohol since the Fall of last year. He is on diuretics and on suppressive therapy with Xifaxan for hepatic encephalopathy. This evaluation is to assess for esophageal or gastric varices. Procedure: With the patient on his left lateral decubitus position and after informed consent and adequate sedation, I passed the Olympus-GIF 160 video upper endoscope through the cricopharyngeus down the esophagus. GE junction was around 41-42 cm from the incisors. The esophagus appeared healthy and there was no evidence of esophageal varices. The endoscope was then passed into the stomach which was insufflated with air and inspected in detail including the retroflex view in the cardia. No abnormalities were noted including any evidence of portal gastropathy or gastric varices. Finally, the endoscope was passed through the pylorus into the duodenum. Pyloric channel, duodenal bulb, post bulbar area and descending duodenum appeared within normal limits. No biopsies or other endoscopic interventions are indicated. The patient tolerated the procedure well. Plan: The patient was reassured. I recommended repeat exam in 2-3 years. He will follow up with you as planned.
[2018-03-16 16:08] VITALS: BP 90/61; PULSE 60
== END 2018-03-16 16:34 | disposition home or self-care (01) ==
LOC: ORWHC2ENDO 12:52
DX: K70.30 Alcoholic cirrhosis of liver without ascites (principal); K72.90 Hepatic failure, unspecified without coma; K21.9 Gastro-esophageal reflux disease without esophagitis; Z79.899 Other long term (current) drug therapy
CPT/HCPCS: 43235; J2704

== ENCOUNTER → 2019-05-08 | Outpatient (CLI) | payer OTHER ==
[2019-05-08 10:16] LABS: Basophils % (A) 0 %; Eosinophils # (A) 0.2 k/uL (0-0.7); Eosinophils % (A) 2 %; HGB 13.8 gm/dL (13.0-17.5); Lymphocytes # (A) 1.9 k/uL (1.0-4.8); Lymphocytes % (A) 19 %; MCH 31.3 pg (25.0-35.0); MCHC 32.1 g/dL (31.0-37.0); MCV 97.5 fL (80.0-100.0); Mean Platelet Volume 7.2; Monocytes # (A) 0.5 k/uL (0-1.0); Monocytes % (A) 5 %; Neutrophils # (A) 7.3 k/uL (1.3-7.7); Neutrophils % (A) 73 %; Platelet Count 309 k/uL (150-450); RBC 4.41 m/uL (4.30-5.90); RDW 14.5 % (11.5-15.5)
[2019-05-08 10:23] LABS: Prothrombin Time 10.4 sec (9.0-12.0)
[2019-05-08 16:45] LABS: ALT 25 U/L (10-49); AST 38 U/L (14-35); Albumin/Globulin Ratio 2.45 (1.60-3.17); Alkaline Phosphatase 94 U/L (41-126); Bilirubin, Conjugated <0.20 mg/dL (0.20-0.40); Total Bilirubin 0.6 mg/dL (0.3-1.2); Total Protein 6.9 g/dL (6.2-8.2)
== END | disposition home or self-care (01) ==
LOC: LABWHC1 09:12
PROVIDERS: ATTEND Physician Assistant
DX: K70.30 Alcoholic cirrhosis of liver without ascites (principal)
CPT/HCPCS: 36415; 80076; 82105; 85025; 85610

== ENCOUNTER → 2019-05-13 | Outpatient (CLI) | payer OTHER ==
--- NOTE | 2019-05-14 01:34 | MR ---
EXAMINATION TYPE: MR liver wo/w con DATE OF EXAM: 05/13/2019 COMPARISON: CT abdomen 12/30/2017 HISTORY: Alcoholic cirrhosis of liver without ascites CONTRAST: Standard multiplanar, multisequence MRI departmental protocol utilizing 7.5 mL intravenous Gadavist g adolinium contrast. FINDINGS: Liver has normal size. There is no discrete liver mass. Spleen has normal size and contour. There is no evidence of pancreatic mass. Pancreatic duct appears normal. Gallbladder appears normal. Bile ducts are not dilated. There is no adrenal mass. Kidneys show normal size and contour. There is no hydronephrosis. There is no sign of retroperitoneal adenopathy. There is no pleural effusion. There is no ascites. There is no sign of retroperitoneal adenopathy. The contrast images show normal renal contrast opacification. There is normal enhancement of the live r. I see no evidence of bony destructive process. IMPRESSION: Negative MR scan of the abdomen. There is clearing of the abdominal ascites and pleural effusions and basilar pulmonary atelectasis compared to old exam. No focal liver defect. No discrete liver mass.
== END | disposition home or self-care (01) ==
LOC: RADMRIMAIN 11:32
PROVIDERS: ATTEND Physician Assistant
DX: K70.30 Alcoholic cirrhosis of liver without ascites (principal)
CPT/HCPCS: 74183; A9585

== ENCOUNTER → 2020-02-04 | Outpatient (CLI) | payer OTHER ==
--- NOTE | 2020-02-04 13:47 | MR ---
EXAMINATION TYPE: MR liver wo/w con DATE OF EXAM: 02/04/2020 COMPARISON: May 13, 2019 HISTORY: Alcoholic Cirrhosis. Follow up study. CONTRAST: Standard multiplanar, multisequence MRI departmental protocol utilizing 7.5 mL intravenous Gadavist g adolinium contrast. FINDINGS: Mildly nodular peripheral contour of the liver suggesting cirrhotic liver disease. The left hepatic l obe appears to be partially atrophic. Underlying hepatic steatosis noted. No space-occupying hepatic lesion. No intrahepatic biliary ductal dilatation. Common bile duct is of normal caliber. The gallbladder sits anteriorly and is free of wall thickening or cholelithiasis. The pancreas spleen and adrenal glands are within normal limits. Hepatic duct is unremarkable. Kidneys excrete contrast symmetrically without evidence for mass, hydronephrosis or nephrolithiasis. IMPRESSION: Mildly nodular peripheral contour of the liver suggesting cirrhotic liver disease. The left hepatic l obe appears to be partially atrophic.
== END | disposition home or self-care (01) ==
LOC: RADMRIMAIN 12:15
PROVIDERS: ATTEND Physician Assistant
DX: K70.30 Alcoholic cirrhosis of liver without ascites (principal)
CPT/HCPCS: 74183; A9585